=== PATIENT | female | born 1940 | race Caucasian/White ===

== ENCOUNTER → 2017-02-13 | Outpatient (CLI) | payer OTHER ==
[~2017-02-13] MED LIST: ALBUAER2 INH; BIOT300T2 PO; CLTP PO; CYAN250T PO; FSM70 PO; GARLTAB3 PO; MAGN400T5 PO; MULT-506 PO; NORT10CA2 PO; PRLSR20 PO; SYMIN160 INH; VITA400C15 PO; [UNRECOGNIZED DRUG - OTHER] PO
--- NOTE | 2017-02-13 14:17 | DIAGNOSTIC IMAGING REPORT ---
CHEST 2 VIEWS ROUTINE CLINICAL HISTORY: Lightheadedness. COMPARISON STUDY: 04/15/2015 FINDINGS: The heart is normal in size. There is a retrocardiac opacity consistent with a hiatal hernia. There is no focal pulmonary consolidation. There is no failure. There are no pleural effusions.[ IMPRESSION: Hiatal hernia. No active disease in the chest. Electronically signed by: Martinez August M.D. 02/13/2017 2:15 PM Dictated Date/Time: 02/13/2017 2:14 PM
[2017-02-13 14:41] LABS: BASO % 0.5 %; BASO ABS # 0.03 K/uL (0-0.2); COMPLETE YES; EOS % 2.2 %; HEMATOCRIT 44.4 % (37-47); IG% 0.2 %; LYMPH % 47.4 %; LYMPH ABS # 3.04 K/uL (1.2-3.4); MEAN CELL VOLUME 89.2 fL (80-100); MEAN CORPUSCULAR HEMOGLOBIN 29.5 pg (25-34); MEAN CORPUSCULAR HGB CONC 33.1 g/dl (32-36); MEAN PLATELET VOLUME 10.6 fL (7.4-10.4); NEUT % 42.7 %; PLATELET COUNT 203 K/uL (130-400); RED BLOOD COUNT 4.98 M/uL (4.2-5.4); WHITE BLOOD COUNT 6.42 K/uL (4.8-10.8)
[2017-02-13 14:51] LABS: ALT/SGPT 23 U/L (12-78); AST/SGOT 17 U/L (15-37); BLOOD UREA NITROGEN 14 mg/dl (7-18); BUN/CREATININE RATIO 18.5 (10-20); CALCIUM 8.7 mg/dl (8.5-10.1); CARBON DIOXIDE 33 mmol/L (21-32); CHLORIDE 102 mmol/L (98-107); CREATININE 0.78 mg/dl (0.60-1.20); GLUCOSE 82 mg/dl (70-99); MAGNESIUM 2.5 mg/dl (1.8-2.4); POTASSIUM 4.1 mmol/L (3.5-5.1); SODIUM 141 mmol/L (136-145)
[2017-02-13 15:02] LABS: ALB/GLOB RATIO 0.9 (0.9-2); ALKALINE PHOSPHATASE 80 U/L (45-117)
[2017-02-13 15:15] LABS: URINE APPEARANCE CLEAR (CLEAR); URINE BILIRUBIN NEG (NEG); URINE COLOR YELLOW; URINE NITRITE NEG (NEG); URINE SPECIFIC GRAVITY 1.007 (1.000-1.030); UROBILINOGEN NEG (NEG)
[2017-02-13 15:18] LABS: MANUAL MICROSCOPIC REQUIRED? NO; REVIEW REQ? NO
--- NOTE | 2017-02-20 10:32 | CODING QUERY MEDICAL NECESSITY ---
SUPPORTING DIAGNOSIS NEEDED A supporting diagnosis is required for the test/procedure performed on this patient in order for us to be reimbursed by the patient's insurance. Please provide a supporting diagnosis for the following test/procedure listed below next to the test name along with your signature. *If there is no additional diagnosis for this patient that would support the following test/procedure please document that below next to the test/procedure. Test(s)/Procedure(s) that require a supporting diagnosis: DOS 02/13 * Vitamin D DIAGNOSIS: * Vitamin B12 DIAGNOSIS: * TSH DIAGNOSIS: Provider Signature: Date: Thank you Melina Pearce Health Information Management Once completed, please kindly fax back to [phone] For questions please call [phone]
== END | disposition home or self-care (01) ==
LOC: C.LAB 13:23
PROVIDERS: ATTEND Internal Medicine Geriatric Medicine
DX: R42 Dizziness and giddiness (principal); M85.80 Other specified disorders of bone density and structure, unspecified site; E53.8 Deficiency of other specified B group vitamins; E78.5 Hyperlipidemia, unspecified

== ENCOUNTER → 2017-02-14 | Outpatient (CLI) | payer OTHER ==
--- NOTE | 2017-02-14 12:04 | DIAGNOSTIC IMAGING REPORT ---
CHEST CTA for PULMONARY ARTERIES CT DOSE: 475.02 mGy.cm HISTORY: Chest pain DIZZINESS, ELEVATED D DIMER, SOB, RECENT TRAVEL TECHNIQUE: Multiaxial CT images of the chest were performed following the intravenous administration of contrast to evaluate the pulmonary arteries. Maximal intensity projection images were also obtained. COMPARISON STUDY: None. FINDINGS: There is a normal caliber thoracic aorta with no evidence for dissection. There is no evidence for pulmonary embolus. No pleural effusions. No pneumothorax. The liver and spleen are unremarkable. No mediastinal or hilar lymphadenopathy. The central airways are patent. The lungs are clear. Fixed hiatal hernia IMPRESSION: No evidence for pulmonary embolus. The lungs are clear. Fixed hiatal hernia. Electronically signed by: Arturo Lynch M.D. 02/14/2017 12:03 PM Dictated Date/Time: 02/14/2017 12:01 PM
== END | disposition home or self-care (01) ==
LOC: C.CTS 11:30
PROVIDERS: ATTEND Internal Medicine Geriatric Medicine
DX: R42 Dizziness and giddiness (principal); R79.89 Other specified abnormal findings of blood chemistry

== ENCOUNTER → 2017-07-24 | Outpatient (CLI) | payer OTHER ==
[2017-07-24 09:54] LABS: BASO % 0.6 %; BASO ABS # 0.04 K/uL (0-0.2); COMPLETE YES; EOS % 6.3 %; IG% 0.3 %; LYMPH % 41.5 %; LYMPH ABS # 2.79 K/uL (1.2-3.4); MEAN CELL VOLUME 86.1 fL (80-100); MEAN CORPUSCULAR HEMOGLOBIN 28.1 pg (25-34); MEAN CORPUSCULAR HGB CONC 32.6 g/dl (32-36); MEAN PLATELET VOLUME 11.1 fL (7.4-10.4); MONO % 9.2 %; NEUT % 42.1 %; PLATELET COUNT 231 K/uL (130-400); RED BLOOD COUNT 4.88 M/uL (4.2-5.4); WHITE BLOOD COUNT 6.72 K/uL (4.8-10.8)
[2017-07-24 10:13] LABS: ALT/SGPT 18 U/L (12-78); AST/SGOT 14 U/L (15-37); BLOOD UREA NITROGEN 21 mg/dl (7-18); BUN/CREATININE RATIO 28.6 (10-20); CALCIUM 8.9 mg/dl (8.5-10.1); CARBON DIOXIDE 33 mmol/L (21-32); CHLORIDE 103 mmol/L (98-107); CREATININE 0.75 mg/dl (0.60-1.20); GLUCOSE 97 mg/dl (70-99); MAGNESIUM 2.4 mg/dl (1.8-2.4); POTASSIUM 4.2 mmol/L (3.5-5.1); SODIUM 140 mmol/L (136-145)
[2017-07-24 10:19] LABS: ALB/GLOB RATIO 0.9 (0.9-2); ALKALINE PHOSPHATASE 96 U/L (45-117); CHOLESTEROL 177 mg/dl (0-200); CHOLESTEROL/HDL RATIO 3.5; HDL CHOLESTEROL 51 mg/dl; LDL CHOLESTEROL CALCULATED 101 mg/dl; TRIGLYCERIDES 126 mg/dl (0-150); VERY LOW DENSITY LIPOPROT CALC 25 mg/dl
== END | disposition home or self-care (01) ==
LOC: C.LAB1850 08:07
PROVIDERS: ATTEND Physician Assistant Medical
DX: E53.8 Deficiency of other specified B group vitamins (principal); E78.5 Hyperlipidemia, unspecified; M85.80 Other specified disorders of bone density and structure, unspecified site; Z13.0 Encounter for screening for diseases of the blood and blood-forming organs and certain disorders involving the immune mechanism

== ENCOUNTER → 2017-08-21 | Outpatient (CLI) | payer OTHER | END | disposition home or self-care (01) | LOC: C.MAMM 14:50 | PROVIDERS: ATTEND Physician Assistant | DX: M85.80 Other specified disorders of bone density and structure, unspecified site (principal); M85.89 Other specified disorders of bone density and structure, multiple sites ==

== ENCOUNTER → 2017-11-02 | Outpatient (CLI) | payer OTHER ==
--- NOTE | 2017-11-02 18:06 | ECHOCARDIOGRAM REPORT ---
*NOTICE TO RECEIVING CONSTITUTION PARTY AGENCY This information is strictly Confidential and protected under [place] law. [place] law prohibits you from making any further disclosure of this information unless further disclosure is expressly permitted by the written consent of the person to whom it pertains or is authorized by law. A general authorization for the release of medical or other information is not sufficient for this purpose. Hospital accepts no responsibility if the information is made available to any other person, INCLUDING THE PATIENT. Interpretation Summary * Name: ABBI LICONA Study Date: 11/02/2017 01:04 PM BP: 136/80 mmHg * Patient Location: [facility] HR: 79 * : 1940 (M/d/yyyy) Gender: Female Height: 61 in * Age: 76 yrs Ethnicity: CA Weight: 180 lb * Ordering Physician: John Pena * Referring Physician: John Pena * Performed By: Noy Gilliland RCS * * Reason For Study: SOB * BSA: 1.8 m2 * -- Conclusions -- * 1. Normal LV size. Normal LV wall thickness. * 2. Normal LV systolic function. LVEF 55-60%. No regional wall motion abnormalities. * 3. Normal RV size and function. * 4. Mild aortic regurgitation. * 5. Borderline pulmonary hypertension. Estimated PASP 35-40. Normal CVP * 6. No prior studies for comparison. Procedure Details * A complete two-dimensional transthoracic echocardiogram was performed (2D, M-mode, Doppler and color flow Doppler). Left Ventricle * The left ventricle is grossly normal size. * There is normal left ventricular wall thickness. * Ejection Fraction = 55-60%. * No regional wall motion abnormalities noted. Right Ventricle * The right ventricle is grossly normal size. * The right ventricular systolic function is normal as assessed by tricuspid annular plane systolic excursion (TAPSE) (normal >1.5 cm). Atria * The left atrial size is normal. * Right atrial size is normal. * No ASD detected; PFO is not assessed. Mitral Valve * The mitral valve leaflets appear thickened, but open well. * There is no mitral valve stenosis. * There is trace mitral regurgitation. Tricuspid Valve * The tricuspid valve is not well visualized, but is grossly normal. * There is trace tricuspid regurgitation. * Right ventricular systolic pressure is elevated at 30-40mmHg. Aortic Valve * The aortic valve opens well. * The aortic valve is trileaflet. * No hemodynamically significant valvular aortic stenosis. * Mild aortic regurgitation. Pulmonic Valve * The pulmonary valve is inadequately visualized, but the Doppler data is adequate for interpretation. * Trace pulmonic valvular regurgitation. Great Vessels * The aortic root and proximal ascending aorta are normal sized. Pericardium/Pleural * There is no pericardial effusion. Great Vessels * Normal inferior vena cava size and collapsability with sniff indicates a normal right atrial pressure of 3 mmHg MMode 2D Measurements and Calculations IVSd 1.0 cm IVSs 1.3 cm LVIDd 4.0 cm LVIDs 2.2 cm LVPWd 0.96 cm LVPWs 1.3 cm IVS/LVPW 1.1 FS 43.3 % EDV(Teich) 68.1 ml ESV(Teich) 17.0 ml EF(Teich) 75.1 % EDV(cubed) 61.8 ml ESV(cubed) 11.3 ml EF(cubed) 81.8 % % IVS thick 25.6 % % LVPW thick 33.8 % LV mass(C)d 123.3 grams LV mass(C)dI 68.3 grams/m\S\2 LV mass(C)s 83.9 grams LV mass(C)sI 46.5 grams/m\S\2 SV(Teich) 51.1 ml SI(Teich) 28.3 ml/m\S\2 SV(cubed) 50.5 ml SI(cubed) 28.0 ml/m\S\2 Ao root diam 3.2 cm Ao root area 7.9 cm\S\2 ACS 1.8 cm LA dimension 3.5 cm asc Aorta Diam 3.0 cm LA/Ao 1.1 Doppler Measurements and Calculations MV E max harmony 52.5 cm/sec MV A max harmony 96.6 cm/sec MV E/A 0.54 MV P1/2t max harmony 50.0 cm/sec MV P1/2t 109.5 msec MVA(P1/2t) 2.0 cm\S\2 MV dec slope 133.8 cm/sec\S\2 MV dec time 0.33 sec Ao V2 max 119.1 cm/sec Ao max PG 5.7 mmHg Ao max PG (full) 2.6 mmHg AI max harmony 466.5 cm/sec AI max PG 87.1 mmHg AI dec slope 266.5 cm/sec\S\2 AI P1/2t 512.8 msec LV V1 max PG 3.1 mmHg LV V1 max 88.3 cm/sec PA V2 max 140.5 cm/sec PA max PG 7.9 mmHg PI max harmony 192.6 cm/sec PI max PG 14.8 mmHg PI dec slope 257.8 cm/sec\S\2 PI P1/2t 218.8 msec TR max harmony 274.9 cm/sec
== END | disposition home or self-care (01) ==
LOC: C.CPL 12:33
PROVIDERS: ATTEND Internal Medicine Critical Care Medicine
DX: R06.09 Other forms of dyspnea (principal)

== ENCOUNTER → 2017-11-08 | Outpatient (CLI) | payer OTHER ==
--- NOTE | 2017-11-08 14:26 | MAMMOGRAPHY REPORT ---
BILATERAL DIGITAL SCREENING MAMMOGRAM WITH CAD: 11/08/2017 CLINICAL HISTORY: Routine screening. Patient has no complaints. TECHNIQUE: Current study was also evaluated with a Computer Aided Detection (CAD) system. Bilateral CC and MLO views were obtained. COMPARISON: Comparison is made to exams dated: 11/07/2016 mammogram, 11/04/2015 mammogram, 11/02/2014 mammogram, 10/30/2013 mammogram, 09/16/2012 mammogram, and 08/02/2010 mammogram - [facility]. BREAST COMPOSITION: The tissue of both breasts is almost entirely fatty. FINDINGS: No suspicious masses, calcifications, or areas of architectural distortion are noted in ei ther breast. There has been no significant interval change compared to prior exams. Scattered bilater al benign-appearing calcifications are not significantly changed. There is a stable asymmetry in the right upper outer quadrant. IMPRESSION: ACR BI-RADS CATEGORY 2: BENIGN There is no mammographic evidence of malignancy. A 1 year screening mammogram is recommended. The pa tient will receive written notification of the results. Approximately 10% of breast cancers are not detected with mammography. A negative mammographic report should not delay biopsy if a clinically suggestive mass is present. Kaya Glover M.D. /:11/08/2017 12:01:19 Special Duty Nurse: Martha Dyer, [facility] letter sent: Normal 1/2 BI-RADS Code: ACR BI-RADS Category 2: Benign
== END | disposition home or self-care (01) ==
LOC: C.MAMM 10:00
PROVIDERS: ATTEND Physician Assistant Medical
DX: Z12.31 Encounter for screening mammogram for malignant neoplasm of breast (principal)

== ENCOUNTER → 2017-11-14 | Outpatient (CLI) | payer OTHER ==
--- NOTE | 2017-11-14 14:59 | DIAGNOSTIC IMAGING REPORT ---
CHEST 2 VIEWS ROUTINE HISTORY: J44.9 COPD, [id number] Dyspnea on exertion COMPARISON: Chest 02/13/2017. FINDINGS: Moderate hiatus hernia, unchanged. The lungs are clear. The heart is normal in size. No pleural effusions. No pneumothorax. IMPRESSION: No significant change compared to the prior study. No acute process. Moderate hiatus hernia. Electronically signed by: Buzz Eid M.D. 11/14/2017 2:57 PM Dictated Date/Time: 11/14/2017 2:52 PM
== END | disposition home or self-care (01) ==
LOC: C.RAD1850 14:44
PROVIDERS: ATTEND Internal Medicine Critical Care Medicine
DX: J44.9 Chronic obstructive pulmonary disease, unspecified (principal); R06.09 Other forms of dyspnea; K44.9 Diaphragmatic hernia without obstruction or gangrene

== ENCOUNTER 2018-02-25 16:20 | Emergency (ER) | payer OTHER ==
[~2018-02-25] VITALS: Ht 160 cm; Wt 88.1 kg
[2018-02-25 16:25] VITALS: TEMP 36.8; Ht 160 cm; Wt 88.1 kg
[2018-02-25] MEDS ORDERED: SODIUM CHLORIDE 0.9% 1000ML 1,000 ML IV STA ×2 (16:29→17:23)
[2018-02-25 17:00] VITALS: O2SAT 94
--- NOTE | 2018-02-25 17:05 | DIAGNOSTIC IMAGING REPORT ---
CHEST ONE VIEW PORTABLE CLINICAL HISTORY: EVALUATE GI BLEED COMPARISON STUDY: Chest radiograph November 14, [address] February 14, 2017. FINDINGS: Lung volumes are normal. No pneumothorax or pleural effusion is noted. There is no evidence for pulmonary edema. A large hiatal hernia is again noted. Cardiomediastinal silhouette is stable. IMPRESSION: No acute cardiopulmonary findings. Electronically signed by: Yared Moe M.D. 02/25/2018 5:03 PM Dictated Date/Time: 02/25/2018 5:01 PM
[2018-02-25 17:12] LABS: EOS ABS # 0.09 K/uL (0-0.5); HEMATOCRIT 44.7 % (37-47); HEMOGLOBIN 14.7 g/dL (12.0-16.0); IG# 0.02 K/uL (0.00-0.02); LYMPH % 9.1 %; LYMPH ABS # 0.81 K/uL (1.2-3.4); MEAN CELL VOLUME 83.4 fL (80-100); MEAN CORPUSCULAR HEMOGLOBIN 27.4 pg (25-34); MEAN CORPUSCULAR HGB CONC 32.9 g/dl (32-36); MEAN PLATELET VOLUME 10.4 fL (7.4-10.4); MONO % 7.6 %; MONO ABS # 0.68 K/uL (0.11-0.59); NEUT % 82.1 %; NEUT ABS # 7.32 K/uL (1.4-6.5); PLATELET COUNT 179 K/uL (130-400); RED CELL DISTRIBUTION WIDTH CV 16.1 % (11.5-14.5); RED CELL DISTRIBUTION WIDTH SD 48.7 fL (36.4-46.3); WHITE BLOOD COUNT 8.92 K/uL (4.8-10.8)
[2018-02-25 17:39] LABS: ALBUMIN 3.4 gm/dl (3.4-5.0); CALCIUM 8.2 mg/dl (8.5-10.1); CREATININE 1.04 mg/dl (0.60-1.20); POTASSIUM 3.9 mmol/L (3.5-5.1)
[2018-02-25 17:42] LABS: TOTAL PROTEIN 7.3 gm/dl (6.4-8.2)
[2018-02-25] MEDS ORDERED: CHOL2000 PO (17:59)
[2018-02-25] MEDS ORDERED: NRN300 PO (17:59)
[2018-02-25] MEDS ORDERED: CODCAP4 PO (17:59)
[2018-02-25] MEDS ORDERED: GARL10007 PO (17:59)
[2018-02-25] MEDS ORDERED: CALC-393 PO (17:59)
[2018-02-25] MEDS ORDERED: MULT-845 PO (17:59)
[2018-02-25] MEDS ORDERED: VITACAP36 PO (17:59)
[2018-02-25] MEDS ORDERED: ASPI-232 PO (17:59)
[2018-02-25] MEDS ORDERED: FLUT1INH INH (17:59)
[2018-02-25] MEDS ORDERED: ALBINS/ INH (17:59)
[2018-02-25] MEDS ORDERED: OMEP20CA9 PO (17:59)
[2018-02-25] MEDS ORDERED: CYAN10004 PO (17:59)
[2018-02-25] MEDS ORDERED: RANI150T3 PO (17:59)
--- NOTE | 2018-02-25 18:59 | EMERGENCY ROOM VISIT NOTE ---
History Report prepared by Yesenia: Gema Banerjee Under the Supervision of: Dr. Murphy Park M.D. First contact with patient: 16:28 Chief Complaint: DIARRHEA Stated Complaint: DIARRHEA History of Present Illness The patient is a 77 year old white female with a past medical history of COPD, asthma, neuropathy, cholecystectomy, hernia who presents to the ED with a cc of persistent diarrhea beginning 0400 this morning. Last bowel movement was at 1630. She does not identify anything that improves or worsens her pain. Positive watery black stool. Negative abdominal pain, bright red blood, lightheaded, bruising. She is on baby aspirin. She denies any smoking or alcohol use. No recent travel, antibiotic use, or stream/well water. No history of diverticulitis. Source of History: patient Onset: 0400 this morning Position: other (stool) Quality: other (black watery diarrhea) Timing: other (persistent) Associated Symptoms: No abdominal pain, No hematochezia Note: Pt denies lightheadedness, bruising. Review of Systems See HPI for pertinent positives and negatives. A total of ten systems were reviewed and were otherwise negative. Past Medical & Surgical Medical Problems: (1) Lower extremity neuropathy (2) Mild persistent asthma Family History Cancer Social History Smoking Status: Never Smoker Alcohol Use: none Drug Use: none Marital Status: single Housing Status: lives with family Occupation Status: retired Current/Historical Medications Scheduled Albuterol Sulf (Proventil 0.083% 2.5MG/3ML), 2.5 MG INH DAILY Aspirin (Aspir-81), 1 TAB PO DAILY Biotin (Biotin), 1 TABLET PO DAILY Calcium Carbonate (Calcium), 600 MG PO DAILY Cholecalciferol (Vitamin D3), 1 CAP PO DAILY Cod Liver Oil (Cod Liver Oil), 1 CAP PO DAILY Cyanocobalamin (Vitamin B-12 1000 Mcg), 1,000 MCG PO DAILY Fluticasone Furoate-Vilanterol (Breo Ellipta), 1 PUFF INH DAILY Gabapentin (Gabapentin), 300 MG PO PM Garlic (Garlic), 1 TAB PO DAILY Magnesium Oxide (Mag-Ox), 400 MG PO DAILY Multiple Vitamins W/ Minerals (Centrum Silver Adult 50+), 1 TAB PO DAILY Omeprazole (Prilosec), 40 MG PO DAILY Ranitidine Hcl (Zantac), 150 MG PO HS Vitamin E (E-200), 1 CAP PO DAILY Allergies Coded Allergies: No Known Allergies (Verified , 02/25/18) Uncoded Allergies: NKA (Allergy, Unknown, 04/15/15) No Known Allergies Physical Exam Vital Signs Date Time Temp Pulse Resp B/P (MAP) Pulse Ox O2 Delivery O2 Flow Rate FiO2 02/25/18 20:35 86 16 125/73 94 02/25/18 20:28 94 02/25/18 19:47 96 20 133/90 Room Air 02/25/18 18:19 102 16 164/99 100 Room Air 02/25/18 17:00 94 Room Air 02/25/18 16:25 36.8 121 20 139/87 94 Room Air Physical Exam GENERAL: Awake, alert, well-appearing, NAD, wearing glasses HENT: Normocephalic, atraumatic. EYES: Normal conjunctiva. Sclera non-icteric. NECK: Supple. No nuchal rigidity. FROM. RESPIRATORY: CTAB, no rhonchi, wheezing, crackles CARDIAC: Tachycardic and regular, no MRG ABDOMEN: Soft, NTND, BS+, reducible midline hernia, nontender when reduced, incision scar over right abdomen. RECTAL: No hemorrhoid or fissure noted. No masses. Dark stool, heme negative. MSK: No chest wall TTP, no LE edema NEURO: GCS 15, CN 2-12 intact, moves all 4s on command SKIN: No rash or jaundice noted. Medical Decision & Procedures ER Provider Diagnostic Interpretation: Radiology results as stated below per my review and radiologist interpretation: CHEST ONE VIEW PORTABLE CLINICAL HISTORY: EVALUATE GI BLEED COMPARISON STUDY: Chest radiograph November 14, [address] February 14, 2017. FINDINGS: Lung volumes are normal. No pneumothorax or pleural effusion is noted. There is no evidence for pulmonary edema. A large hiatal hernia is again noted. Cardiomediastinal silhouette is stable. IMPRESSION: No acute cardiopulmonary findings. Electronically signed by: Yared Moe M.D. 02/25/2018 5:03 PM Dictated Date/Time: 02/25/2018 5:01 PM Laboratory Results 02/25/18 16:47 Red Blood Count 5.36, Mean Corpuscular Volume 83.4, Mean Corpuscular Hemoglobin 27.4, Mean Corpuscular Hemoglobin Concent 32.9, Mean Platelet Volume 10.4, Neutrophils (%) (Auto) 82.1, Lymphocytes (%) (Auto) 9.1, Monocytes (%) (Auto) 7.6, Eosinophils (%) (Auto) 1.0, Basophils (%) (Auto) 0.0, Neutrophils # (Auto) 7.32, Lymphocytes # (Auto) 0.81, Monocytes # (Auto) 0.68, Eosinophils # (Auto) 0.09, Basophils # (Auto) 0.00 02/25/18 16:47 Test 02/25/18 16:47 02/25/18 19:40 White Blood Count 8.92 K/uL (4.8-10.8) Red Blood Count 5.36 M/uL (4.2-5.4) Hemoglobin 14.7 g/dL (12.0-16.0) Hematocrit 44.7 % (37-47) Mean Corpuscular Volume 83.4 fL (80-100) Mean Corpuscular Hemoglobin 27.4 pg (25-34) Mean Corpuscular Hemoglobin Concent 32.9 g/dl (32-36) Platelet Count 179 K/uL (130-400) Mean Platelet Volume 10.4 fL (7.4-10.4) Neutrophils (%) (Auto) 82.1 % Lymphocytes (%) (Auto) 9.1 % Monocytes (%) (Auto) 7.6 % Eosinophils (%) (Auto) 1.0 % Basophils (%) (Auto) 0.0 % Neutrophils # (Auto) 7.32 K/uL (1.4-6.5) Lymphocytes # (Auto) 0.81 K/uL (1.2-3.4) Monocytes # (Auto) 0.68 K/uL (0.11-0.59) Eosinophils # (Auto) 0.09 K/uL (0-0.5) Basophils # (Auto) 0.00 K/uL (0-0.2) RDW Standard Deviation 48.7 fL (36.4-46.3) RDW Coefficient of Variation 16.1 % (11.5-14.5) Immature Granulocyte % (Auto) 0.2 % Immature Granulocyte # (Auto) 0.02 K/uL (0.00-0.02) Prothrombin Time 10.2 SECONDS (9.0-12.0) Prothromb Time International Ratio 1.0 (0.9-1.1) Activated Partial Thromboplast Time 24.0 SECONDS (21.0-31.0) Partial Thromboplastin Ratio 0.9 Anion Gap 10.0 mmol/L (3-11) Est Creatinine Clear Calc Drug Dose 46.9 ml/min Estimated GFR () 59.6 Estimated GFR (Non- 51.4 BUN/Creatinine Ratio 21.3 (10-20) Calcium Level 8.2 mg/dl (8.5-10.1) Total Bilirubin 0.7 mg/dl (0.2-1) Direct Bilirubin 0.1 mg/dl (0-0.2) Aspartate Amino Transf (AST/SGOT) 28 U/L (15-37) Alanine Aminotransferase (ALT/SGPT) 28 U/L (12-78) Alkaline Phosphatase 81 U/L (45-117) Total Protein 7.3 gm/dl (6.4-8.2) Albumin 3.4 gm/dl (3.4-5.0) Lipase 915 U/L (73-393) Urine Color YELLOW Urine Appearance CLEAR (CLEAR) Urine pH 5.0 (4.5-7.5) Urine Specific [place] 1.021 (1.000-1.030) Urine Protein NEG (NEG) Urine Glucose (UA) NEG (NEG) Urine Ketones NEG (NEG) Urine Occult Blood NEG (NEG) Urine Nitrite NEG (NEG) Urine Bilirubin NEG (NEG) Urine Urobilinogen NEG (NEG) Urine Leukocyte Esterase NEG (NEG) Laboratory results reviewed by me Medications Administered Medications (Trade) Dose Ordered Sig/Billie Route Start Time Stop Time Status Last Admin Dose Admin Sodium Chloride 1,000 ml @ 999 mls/hr Q1H1M STAT IV 02/25/18 16:29 02/25/18 17:29 DC 02/25/18 17:00 999 MLS/HR Sodium Chloride 1,000 ml @ 999 mls/hr Q1H1M STAT IV 02/25/18 17:23 02/25/18 18:23 DC 02/25/18 17:37 999 MLS/HR ECG Per My Interpretation Indication: tachycardia Rate (beats per minute): 114 Rhythm: sinus tachycardia Findings: T-wave inversion (Inferior, questionable), other (short MA, normal axis) ED Course 1636: The patient was evaluated in room B7. A complete history and physical exam was performed. 1849: I reevaluated the patient. She is feeling better. 1943: I reevaluated the patient. Discussed results and discharge instructions: She verbalized understanding and agreement. 2027: The patient has finished her fluids and is feeling better. She was discharged home. Medical Decision Nursing notes reviewed. Ancillary studies and prior records reviewed. The patient is a 77 year old white female with a past medical history of COPD, asthma, neuropathy, cholecystectomy, hernia who presents to the ED with a cc of persistent diarrhea beginning 0400 this morning. Etiologies such as diverticulosis, AVM, coagulopathy, colitis, inflammatory bowel disease, malignancy,Susu-Wilson tear, esophagitis, peptic ulcer disease , variceal bleed, gastritis, epistaxis, fissure, hemorrhoids, as well as others were entertained. Patient was seen and evaluated at the bedside. Patient was complaining of some diarrhea and noticed that her stools were initially N color no turned darker. Patient does take a baby aspirin but no other blood thinning medications. Patient did have a rectal exam performed which showed no fissures or hemorrhoids. Patient did have dark stool but it was heme-negative. Patient did have blood work completed and was given IV fluids along with a type and screen and coags. Patient's blood counts are normal. Patient has a normal H&H, normal platelet count, normal coagulation studies. Patient does have a mild elevation in lipase which is 3 times the normal limit. Patient does not complain of any epigastric discomfort, nausea and the patient has not been vomiting. Patient was able to tolerate some p.o. modesta sari at the bedside. Patient's tachycardia did improve with fluids. Upon reassessment she only got about 1/2 L of the initial 2 L ordered. Patient was told to keep her arm straight to continue her p.o. hydration. Upon reassessment the patient's tachycardia improved. Patient was told that she needs to continue p.o. hydration at home. Patient was given strict follow-up, discharge, and return precautions. All questions were answered. Patient was deemed suitable for outpatient follow-up at this time. Patient agreed with the plan of care and was safely discharged home. Medication Reconcilliation Current Medication List: was personally reviewed by me Blood Pressure Screening Patient's blood pressure: Elevated blood pressure Blood pressure disposition: Elevated BP felt to be situational Impression Primary Impression: Diarrhea Scribe Attestation The scribe's documentation has been prepared under my direction and personally reviewed by me in its entirety. I confirm that the note above accurately reflects all work, treatment, procedures, and medical decision making performed by me. Departure Information Dispostion Home / Self-Care Referrals RV. Mccurdy MD (PCP) Patient Instructions Diarrhea, My [facility] Additional Instructions Please return to the emergency department if you have worsening or recurrent symptoms not amenable to at-home treatment. Please call for a follow-up appointment with her primary care physician. Please take your medications as prescribed. If you have other concerns and/or complaints please feel free to also call your primary care physician's office or return the ED for further evaluation, management, and treatment. You may take 600 mg Ibuprofen every 6 hours as needed for pain with food for no more than 2 consecutive days. You may take tylenol 1000 mg every 6 hours as needed for pain. You may take motrin and tylenol separately or at the same time. Take your medications as prescribed. Please make sure you hydrate liberally with clear liquids. You have been examined and treated today on an emergency basis only. This is not a substitute for, or an effort to provide, complete comprehensive medical care. It is impossible to recognize and treat all injuries or illnesses in a single emergency department visit. It is therefore important that you follow up closely with [facility], your PCP, and/or your specialist(s). Call as soon as possible for an appointment. Thank you for your time and consideration. I look forward to speaking with you again soon. Please don't hesitate to call us if you have any questions. Problem Qualifiers Primary Impression: Diarrhea Diarrhea type: unspecified type Qualified Codes: R19.7 - Diarrhea, unspecified
[2018-02-25 20:35] VITALS: BP 125/73; PULSE 86; O2SAT 94
== END 2018-02-25 20:30 | disposition home or self-care (01) ==
LOC: C.EDB 16:21
DX: R19.7 Diarrhea, unspecified (principal); R00.0 Tachycardia, unspecified; R03.0 Elevated blood-pressure reading, without diagnosis of hypertension; R74.8 Abnormal levels of other serum enzymes; J44.9 Chronic obstructive pulmonary disease, unspecified; Z90.49 Acquired absence of other specified parts of digestive tract; Z79.51 Long term (current) use of inhaled steroids; Z79.82 Long term (current) use of aspirin

== ENCOUNTER → 2018-02-28 | Outpatient (CLI) | payer OTHER ==
[~2018-02-28] MED LIST changes: +ALBINS/ INH; -ALBUAER2 INH; +ASPI-232 PO; +CALC-393 PO; +CHOL2000 PO; -CLTP PO; +CODCAP4 PO; +CYAN10004 PO; -CYAN250T PO; +FLUT1INH INH; -FSM70 PO; +GARL10007 PO; -GARLTAB3 PO; -MULT-506 PO; +MULT-845 PO; -NORT10CA2 PO; +NRN300 PO; +OMEP20CA9 PO; -PRLSR20 PO; +RANI150T3 PO; -SYMIN160 INH; -VITA400C15 PO; +VITACAP36 PO; -[UNRECOGNIZED DRUG - OTHER] PO
== END | disposition home or self-care (01) ==
LOC: C.LAB1850 15:13
PROVIDERS: ATTEND Internal Medicine
DX: R19.7 Diarrhea, unspecified (principal)

== ENCOUNTER 2019-05-29 20:29 | Inpatient (IN) ==
[2019-05-29] MEDS ORDERED: SODIUM CHLORIDE 0.9% 250 ML IV PRN ×2 (20:39→22:41)
[2019-05-29] MEDS ORDERED: SODIUM CHLORIDE 0.9% 500 ML IV SCH (20:45)
[2019-05-29] MEDS ORDERED: ALBUT/IPRATROP 3MG/0.5MG NEB 3 ML VIAL NEB STA (20:47)
[2019-05-29] MEDS ORDERED: FAMOTIDINE 20MG/5ML IV PUSH IV STA (20:48)
--- NOTE | 2019-05-29 21:12 | Emergency Department Note ---
Entered by Rios Stephen acting as a scribe for Isra Asencio MD History of Present Illness General Chief complaint: Referred by Doctor Stated complaint: LOW BLOOD WORK - SOB Time Seen by Provider: 05/29/19 20:36 Source: patient History of Present Illness Onset (ago): day(s) (labs obtained yesterday) Location: chest (lungs) Pain Consistency: + other (persistent) Quality: + other (shortness of breath, low hemoglobin) Associated symptoms: + chest pain The patient is a 78 year old female with COPD who presents to the Emergency Room after referral for low hemoglobin of 7.6 measured yesterday. 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 Today she was called an hour prior to arr ival and was instructed to report to the ER. The patient has not noticed blood in her urine or stool, and she denies a history of GI bleeding. The patient yesterday was also started on prednisone and doxycycline. She reports that she takes baby aspirin daily but no other blood thinners. She states that she has had burning chest pain throughout today, which she states feels like reflux. She reports that she started using supplemental oxygen last year at night, but recently her shortness of breath has been worsening and she has been using it during the day as needed. She states that she uses nebulizers 3x daily. She denies history of smoking. The patient denies a history of heart attack. Home Medications Home Medications Medication Instructions Recorded Confirmed Type albuterol sulfate 2.5 mg INHALATION QID 08/06/18 05/29/19 History aspirin 81 mg PO QPM 08/06/18 05/29/19 History biotin 1 mg PO DAILY 08/06/18 05/29/19 History calcium carbonate [Calcium 600] 600 mg PO DAILY 08/06/18 05/29/19 History cholecalciferol (vitamin D3) 2,000 unit PO DAILY 08/06/18 05/29/19 History [Vitamin D3] cod liver oil 1 cap PO DAILY 08/06/18 05/29/19 History gabapentin [Neurontin] 300 mg PO QPM 08/06/18 05/29/19 History garlic 400 mg PO DAILY 08/06/18 05/29/19 History magnesium oxide [MagOx] 400 mg PO DAILY 08/06/18 05/29/19 History ranitidine HCl [Zantac] 150 mg PO HS 08/06/18 05/29/19 History vitamin E 400 unit PO DAILY 08/06/18 05/29/19 History Trelegy Ellipta 1 inh INHALATION HS 02/17/19 05/29/19 History cyanocobalamin (vitamin B-12) 1,000 mcg PO DAILY 02/17/19 05/29/19 History [Vitamin B-12] multivitamin [Multiple Vitamins] 1 tab PO DAILY 02/17/19 05/29/19 History pantoprazole 40 mg PO QAM 02/17/19 05/29/19 History albuterol sulfate [Ventolin HFA] 2 puff INHALATION Q4 PRN 02/25/19 05/29/19 History tramadol 50 mg PO Q6H PRN #30 tab 02/25/19 05/29/19 Rx doxycycline hyclate 100 mg PO BID 05/29/19 05/29/19 History prednisone 10 mg PO .TAPER UD 05/29/19 05/29/19 History Allergies Allergy/AdvReac Type Severity Reaction Status Date / Time No Known Allergies Allergy Verified 05/29/19 22:15 Past Med/Surg History Medical History Mild persistent asthma (Chronic 05/11/11) Acid reflux COPD (chronic obstructive pulmonary disease) Hernia CURRENT "ABOVE BELLY BUTTON" Neuropathy Surgical History History of carpal tunnel surgery of left wrist History of cholecystectomy History of colonoscopy History of hernia surgery MULTIPLE Family History Daughter Family history of ovarian cancer Social History Preferred Language: Macedonian Communication Ability: Effective Beliefs That Will Affect Care: None Current Living Situation: Other Current Living Situation Comment: SON LIVES WITH PT Feels Safe at Home: Yes Smoking Status: Never smoker Hx Alcohol Use: No Hx Substance Use: No Review of Systems See HPI for pertinent positives & negatives. and A total of 10 systems reviewed and were otherwise negative Physical Exam Vital Signs Vital Signs - 24 hr 05/29/19 20:30 05/29/19 20:52 05/29/19 20:57 Temperature 36.5 C Temperature Source Oral Sepsis Recent Fever Within 48 Hours No Sepsis New/Unexplained Change in Mental Status No Sepsis Action Taken by Nursing No Action Required Pulse Rate 125 H 113 H 118 H Pulse Rate [Right Radial] Pulse Rate from SpO2 Sensor 113 H 121 H Pulse Rhythm Respiratory Rate 24 29 H 26 H Respiratory Effort / Characteristics Blood Pressure 162/108 H 162/91 H Blood Pressure Mean 126 114 Pulse Oximetry 97 99 99 Oxygen Delivery Method Nasal Cannula Oxygen Flow Rate 2 05/29/19 21:00 05/29/19 21:01 05/29/19 21:19 Temperature Temperature Source Sepsis Recent Fever Within 48 Hours Sepsis New/Unexplained Change in Mental Status Sepsis Action Taken by Nursing Pulse Rate 119 H 117 H Pulse Rate [Right Radial] 118 H Pulse Rate from SpO2 Sensor 122 H Pulse Rhythm Regular Respiratory Rate 24 20 22 Respiratory Effort / Characteristics Non-Labored Spontaneous Blood Pressure Blood Pressure Mean Pulse Oximetry 99 98 98 Oxygen Delivery Method Nasal Cannula Nasal Cannula Oxygen Flow Rate 3 3 05/29/19 21:28 05/29/19 21:30 05/29/19 21:31 Temperature Temperature Source Sepsis Recent Fever Within 48 Hours Sepsis New/Unexplained Change in Mental Status Sepsis Action Taken by Nursing Pulse Rate 114 H 115 H 116 H Pulse Rate [Right Radial] Pulse Rate from SpO2 Sensor 115 H 114 H 112 H Pulse Rhythm Respiratory Rate 39 H 24 21 Respiratory Effort / Characteristics Blood Pressure 166/103 H 154/95 H Blood Pressure Mean 124 114 Pulse Oximetry 98 99 98 Oxygen Delivery Method Oxygen Flow Rate 05/29/19 22:00 05/29/19 22:01 05/29/19 22:30 Temperature Temperature Source Sepsis Recent Fever Within 48 Hours Sepsis New/Unexplained Change in Mental Status Sepsis Action Taken by Nursing Pulse Rate 108 H 108 H 108 H Pulse Rate [Right Radial] Pulse Rate from SpO2 Sensor 104 H 109 H 106 H Pulse Rhythm Respiratory Rate 23 26 H 30 H Respiratory Effort / Characteristics Blood Pressure 126/107 H Blood Pressure Mean 113 Pulse Oximetry 100 100 99 Oxygen Delivery Method Oxygen Flow Rate 05/29/19 22:31 Temperature Temperature Source Sepsis Recent Fever Within 48 Hours Sepsis New/Unexplained Change in Mental Status Sepsis Action Taken by Nursing Pulse Rate 110 H Pulse Rate [Right Radial] Pulse Rate from SpO2 Sensor 106 H Pulse Rhythm Respiratory Rate 22 Respiratory Effort / Characteristics Blood Pressure 156/82 H Blood Pressure Mean 106 Pulse Oximetry 98 Oxygen Delivery Method Oxygen Flow Rate GENERAL: Patient is in mild distress from dyspnea. HEENT: No acute trauma, normocephalic atraumatic, mucous membranes moist, no nasal congestion, no scleral icterus. NECK: No stridor, no adenopathy, no meningismus, trachea is midline. LUNGS: Increased respiratory rate. Decreased breath sounds but no wheezing. Patient is short of breath when speaking. HEART: Tachycardia with regular rhythm, no murmurs. ABDOMEN: Soft, nontender, bowel sounds positive, no hernias, no peritonitis. RECTAL: Brown stool, heme positive. EXTREMITIES: No cyanosis or edema, full range of motion of all the joints without pain or difficulty, no signs for acute trauma. NEUROLOGIC: Oriented x 3, no acute motor or sensory deficits, no focal weakness. SKIN: No rash, no jaundice, no diaphoresis. Course 2037: The patient was evaluated in room A9B. A complete history and physical examination were performed. Rectal exam was performed with female nurse kev marc at bedside. 2214: The patient requested medication for heart burn, which was then ordered. 2243: I consulted Dr. Penn [facility] Hospitalist. The patient will be reevaluated for hospitalization. 2250: I updated the patient on results. She provided consent for transfusion. Administered Medications Discontinued Medications Al Hydrox/Mg Hydrox/Simethicone () 1 dose PO ONE ONE Stop: 05/29/19 22:13 Last Admin: 05/29/19 22:16 Dose: 1 dose Documented by: [id number] Albuterol (Duoneb) 3 ml NEB NOW STA Stop: 05/29/19 20:48 Last Admin: 05/29/19 20:59 Dose: 3 ml Documented by: [id number] Famotidine (Pepcid 20mg Iv Push) 20 mg IV ONE STA Stop: 05/29/19 20:49 Last Admin: 05/29/19 21:28 Dose: 20 mg Documented by: [id number] Sodium Chloride (Nss) 500 mls @ 999 mls/hr IV .Q31M MASOUD Stop: 05/29/19 21:15 Last Infusion: 05/29/19 22:05 Dose: 0 mls/hr Documented by: [id number] Admin: 05/29/19 21:28 Dose: 999 mls/hr Documented by: [id number] Medical Decision Making Differential Diagnosis Differential diagnosis: anemia, GI bleed, electrolyte imbalance, dehydration, pneumonia, CHF, COPD exacerbation, ulcer, coagulopathy Medical Records Attestation: I reviewed the patient's medical records. Home Medications Current Medication List: was personally reviewed by me Laboratory Data Attestation: I reviewed the patient's lab results. Result diagrams: 05/29/19 21:14 05/29/19 21:14 Lab Results 05/29/19 05/29/19 05/29/19 Range/Units 20:59 21:14 21:14 WBC 14.10 H (4.8-10.8) K/uL RBC 3.97 L (4.2-5.4) M/uL Hgb 7.6 L (12.0-16.0) g/dL Hct 28.1 L (37-47) % MCV 70.8 L (80-100) fL MCH 19.1 L (25-34) pg MCHC 27.0 L (32-36) g/dL RDW Std Deviation 49.4 H (36.4-46.3) fL RDW Coeff of Michael 19.1 H (11.5-14.5) % Plt Count 276 (130-400) K/uL MPV 10.1 (7.4-10.4) fL Immature Gran % (Auto) 0.4 % Neut % (Auto) 69.7 % Lymph % (Auto) 21.0 % Josephine % (Auto) 8.8 % Eos % (Auto) 0.0 % Baso % (Auto) 0.1 % Immature Gran # (Auto) 0.06 H (0.00-0.02) K/uL Neut # (Auto) 9.83 H (1.4-6.5) K/uL Lymph # (Auto) 2.96 (1.2-3.4) K/uL Josephine # (Auto) 1.24 H (0.11-0.59) K/uL Eos # (Auto) 0.00 (0-0.5) K/uL Baso # (Auto) 0.01 (0-0.2) K/uL Absolute Nucleated RBC 0.06 H (0-0) K/uL Nucleated RBC % (auto) 0.4 % Hypochromasia Present Ovalocytes 1+ PT 9.8 (9.0-12.0) Seconds INR 1.0 (0.9-1.1) APTT < 20.0 L (21.0-31.0) Seconds PTT Ratio 0.7 Sodium (136-145) mmol/L Potassium (3.5-5.1) mmol/L Chloride (98-107) mmol/L Carbon Dioxide (21-32) mmol/L Anion Gap (3-11) BUN (7-18) mg/dl Creatinine (0.6-1.2) mg/dl Est Cr Clr Drug Dosing ml/min Est GFR ( Amer) Est GFR (Non-Af Amer) BUN/Creatinine Ratio (10-20) Glucose (70-99) mg/dl Calcium (8.5-10.1) mg/dl Magnesium (1.8-2.4) mg/dl Total Bilirubin (0.2-1) mg/dl AST (15-37) U/L ALT (12-78) U/L Alkaline Phosphatase (45-117) U/L Troponin I (0-0.045) ng/ml Total Protein (6.4-8.2) gm/dl Albumin (3.4-5.0) gm/dl Globulin (2.5-4.0) gm/dl Albumin/Globulin Ratio (0.9-2) TSH (0.300-4.500) uIu/ml Blood Type O Positive Antibody Screen NEGATIVE Crossmatch See Detail 05/29/19 Range/Units 21:14 WBC (4.8-10.8) K/uL RBC (4.2-5.4) M/uL Hgb (12.0-16.0) g/dL Hct (37-47) % MCV (80-100) fL MCH (25-34) pg MCHC (32-36) g/dL RDW Std Deviation (36.4-46.3) fL RDW Coeff of Michael (11.5-14.5) % Plt Count (130-400) K/uL MPV (7.4-10.4) fL Immature Gran % (Auto) % Neut % (Auto) % Lymph % (Auto) % Josephine % (Auto) % Eos % (Auto) % Baso % (Auto) % Immature Gran # (Auto) (0.00-0.02) K/uL Neut # (Auto) (1.4-6.5) K/uL Lymph # (Auto) (1.2-3.4) K/uL Josephine # (Auto) (0.11-0.59) K/uL Eos # (Auto) (0-0.5) K/uL Baso # (Auto) (0-0.2) K/uL Absolute Nucleated RBC (0-0) K/uL Nucleated RBC % (auto) % Hypochromasia Ovalocytes PT (9.0-12.0) Seconds INR (0.9-1.1) APTT (21.0-31.0) Seconds PTT Ratio Sodium 140 (136-145) mmol/L Potassium 3.7 (3.5-5.1) mmol/L Chloride 104 (98-107) mmol/L Carbon Dioxide 26 (21-32) mmol/L Anion Gap 11.0 (3-11) BUN 22 H (7-18) mg/dl Creatinine 0.99 (0.6-1.2) mg/dl Est Cr Clr Drug Dosing 51.3 ml/min Est GFR ( Amer) 62.8 Est GFR (Non-Af Amer) 54.2 BUN/Creatinine Ratio 21.9 H (10-20) Glucose 128 H (70-99) mg/dl Calcium 8.9 (8.5-10.1) mg/dl Magnesium 2.4 (1.8-2.4) mg/dl Total Bilirubin 0.3 (0.2-1) mg/dl AST 14 L (15-37) U/L ALT 19 (12-78) U/L Alkaline Phosphatase 104 (45-117) U/L Troponin I < 0.015 (0-0.045) ng/ml Total Protein 7.0 (6.4-8.2) gm/dl Albumin 3.4 (3.4-5.0) gm/dl Globulin 3.6 (2.5-4.0) gm/dl Albumin/Globulin Ratio 1.0 (0.9-2) TSH 3.400 (0.300-4.500) uIu/ml Blood Type Antibody Screen Crossmatch Imaging Data Radiologist's Impression: Radiology results as stated below per my review and the radiologist's in terpretation: XR chest 1V portable HISTORY: 78 years-old Female weakness acute weakness with shortness of breath COMPARISON: Chest radiograph 05/28/2019 TECHNIQUE: Portable AP view of the chest FINDINGS: Cardiac silhouette is enlarged, unchanged. Large hiatal hernia redemonstrated. There is no pneumothorax, pleural effusion, focal airspace consolidation or overt pulmonary edema. Degenerative changes of the shoulders and spine. IMPRESSION: 1. Cardiomegaly without overt pulmonary edema. 2. Large hiatal hernia. The above report was generated using voice recognition software. It may contain grammatical, syntax or spelling errors. Electronically signed by: Sohail Betancourt M.D. 05/29/2019 9:12 PM ECG Data Attestation: I personally reviewed and interpreted this ECG as follows: Indication: SOB/dyspnea Rate (beats per minute): 110 Rhythm: sinus tachycardia Findings: + PAC and + PVC; no ST elevation Blood Pressure Blood Pressure Findings: Elevated blood pressure Blood Pressure Disposition: further management by hospitalist ELIANA Narrative There is a mild leukocytosis at 14,000, this could be consistent with infection or her recent prednisone use. Hemoglobin is quite low at 7.6. A rectal exam was performed, the stool was brown in color but heme positive. There is no coagulopathy. No significant electrolyte abnormality or kidney failure. No elevation to the liver enzymes. The patient is in a euthyroid state. Blood type was O+. Chest film showed a hiatal hernia, no CHF or pneumonia. EKG showed a sinus tachycardia, no acute ischemia. Cardiac enzyme testing x1 is not consistent with acute cardiac injury. The patient received a GI cocktail for her heartburn. She was given IV Pepcid. She was given a DuoNeb, IV saline. She was ordered for 1 unit of blood to be transfused. This blood was started in the ER, consent for blood was signed by the patient and witnessed. The patient presents with increasing dyspnea. She is tachycardic. She was quite short of breath with any movement or activity. I do think she will benefit from a blood transfusion. I am concerned about an ulcer or gastritis, especially given her heartburn complaints. I spoke to the patient and case management. The on-call hospitalist was consulted. Patient is currently resting comfortably. Impression & Plan Shortness of breath, Anemia, Tachycardia, Heme positive stool Critical Care Time Critical Care Time: Yes Total Critical Care Time: 45 I have personally spent 45 minutes of critical care time in the direct management of this patient. This includes bedside care, interpretation of diagnostic studies, and testing, discussion with consultants, patient, and family members, and other required patient management activities. This 45 minutes is in excess of all separately billable procedures. Discharge Plan Visit Data Chief Complaint: Referred by Doctor Stated Complaint: LOW BLOOD WORK - SOB ED Provider: Isra Asencio Discharge Problem: Shortness of breath, Anemia, Tachycardia, Heme positive stool Patient Disposition: Being Evaluated by Hospitalist Forms Stand Alone Forms: My [facility] Prescriptions Prescriptions: No Action pantoprazole 40 mg Tablet,Delayed Release (Dr/Ec) 40 mg PO QAM RF: 0 Trelegy Ellipta 100-62.5-25 mcg Blister With Device 1 inh INHALATION HS RF: 0 multivitamin [Multiple Vitamins] Tablet 1 tab PO DAILY RF: 0 cyanocobalamin (vitamin B-12) [Vitamin B-12] 1,000 mcg Tablet 1,000 mcg PO DAILY RF: 0 albuterol sulfate [Ventolin HFA] 90 mcg/actuation Hfa Aerosol Inhaler 2 puff inhalation Q4 PRN (Reason: Shortness Of Breath Or Wheezing) RF: 0 tramadol 50 mg tablet 50 mg PO Q6H PRN (Reason: pain) Qty: 30 RF: 0 vitamin E 200 unit Capsule 400 unit PO DAILY RF: 0 albuterol sulfate 2.5 mg /3 mL (0.083 %) Solution For Nebulization 2.5 mg INHALATION QID RF: 0 cod liver oil Capsule 1 cap PO DAILY RF: 0 aspirin 81 mg Tablet,Delayed Release (Dr/Ec) 81 mg PO QPM RF: 0 calcium carbonate [Calcium 600] 600 mg calcium (1,500 mg) Tablet 600 mg PO DAILY RF: 0 magnesium oxide [MagOx] 400 mg (241.3 mg magnesium) Tablet 400 mg PO DAILY RF: 0 ranitidine HCl [Zantac] 150 mg tablet 150 mg PO HS RF: 0 gabapentin [Neurontin] 300 mg capsule 300 mg PO QPM RF: 0 garlic 400 mg Tablet 400 mg PO DAILY RF: 0 cholecalciferol (vitamin D3) [Vitamin D3] 1,000 unit Capsule 2,000 unit PO DAILY RF: 0 biotin 1 mg Tablet 1 mg PO DAILY RF: 0 prednisone 10 mg tablet 10 mg PO .TAPER UD RF: 0 doxycycline hyclate 100 mg capsule 100 mg PO BID RF: 0 Referrals Referrals: Jessica Baum MD [Primary Care Provider] - Discharge Problem: Anemia Qualifiers: Anemia type: unspecified type Qualified Code(s): D64.9 - Anemia, unspecified The scribe's documentation has been prepared under my direction and personally reviewed by me in its entirety. I confirm that the note above accurately reflects all work, treatment, procedures, and medical decision making performed by me.
--- NOTE | 2019-05-29 21:15 | XRay Report ---
XR chest 1V portable HISTORY: 78 years-old Female weakness acute weakness with shortness of breath COMPARISON: Chest radiograph 05/28/2019 TECHNIQUE: Portable AP view of the chest FINDINGS: Cardiac silhouette is enlarged, unchanged. Large hiatal hernia redemonstrated. There is no pneumothor ax, pleural effusion, focal airspace consolidation or overt pulmonary edema. Degenerative changes of the shoulders and spine. IMPRESSION: 1. Cardiomegaly without overt pulmonary edema. 2. Large hiatal hernia. The above report was generated using voice recognition software. It may contain grammatical, syntax o r spelling errors. Electronically signed by: Sohail Betancourt M.D. 05/29/2019 9:12 PM
[2019-05-29 21:54] LABS: Partial Thromboplastin Ratio 0.7; Partial Thromboplastin Time < 20.0 Seconds (21.0-31.0); Prothrombin Time 9.8 Seconds (9.0-12.0)
[2019-05-29 21:58] LABS: Albumin Level 3.4 gm/dl (3.4-5.0); Aspartate Aminotransferase 14 U/L (15-37); BUN Creatinine Ratio 21.9 (10-20); Blood Urea Nitrogen 22 mg/dl (7-18); Calcium 8.9 mg/dl (8.5-10.1); Carbon Dioxide 26 mmol/L (21-32); Chloride 104 mmol/L (98-107); Creatinine Clr Calc Pharmacy 51.3 ml/min; Est GFR (African American) 62.8; Est GFR (Non-African American) 54.2; Glucose 128 mg/dl (70-99); Magnesium 2.4 mg/dl (1.8-2.4); Potassium 3.7 mmol/L (3.5-5.1); Sodium 140 mmol/L (136-145)
[2019-05-29 22:09] LABS: Alanine Aminotransferase 19 U/L (12-78); Alkaline Phosphatase 104 U/L (45-117); Bilirubin,Total 0.3 mg/dl (0.2-1); Globulin 3.6 gm/dl (2.5-4.0); Troponin I < 0.015 ng/ml (0-0.045)
[2019-05-29] MEDS ORDERED: GI COCKTAIL ED USE PO ONE (22:12)
[2019-05-29 22:39] LABS: Hematocrit (blood only) 28.1 % (37-47); Hemoglobin 7.6 g/dL (12.0-16.0); Mean Corpuscular Volume 70.8 fL (80-100); Mean Platelet Volume 10.1 fL (7.4-10.4); Nucleated RBC # (auto) 0.06 K/uL (0-0); Nucleated RBC % (auto) 0.4 %; Platelet Count 276 K/uL (130-400); RDW Coefficient of Variation 19.1 % (11.5-14.5); RDW Standard Deviation 49.4 fL (36.4-46.3); Red Blood Count 3.97 M/uL (4.2-5.4)
[2019-05-29 22:41] LABS: Basophils # (auto) 0.01 K/uL (0-0.2); Basophils % (auto) 0.1 %; Hypochromasia Present; Immature Granulocytes # (auto) 0.06 K/uL (0.00-0.02); Immature Granulocytes % (auto) 0.4 %; Lymphocytes # (auto) 2.96 K/uL (1.2-3.4); Monocytes # (auto) 1.24 K/uL (0.11-0.59); Monocytes % (auto) 8.8 %; Neutrophils # (auto) 9.83 K/uL (1.4-6.5); Neutrophils % (auto) 69.7 %; Ovalocytes 1+
--- NOTE | 2019-05-30 00:05 | History & Physical Report ---
Date of Service May 30, 2019 Assessment & Plan (1) Fatigue: 78-year-old female was admitted on 30 May 2019 for anemia and shortness of breath. Fatigue, anemia, suspected GI bleed: Patient notes fatigue for about a week, worse over the past 48 hours or so. No noted melanotic stools at home. Denies history of GI bleed. Referred from pulmonary office for anemia. Admit Hb 7.6, MCV 70. Is on a baby aspirin (for unknown reason). Has a history of GERD and a large hiatal hernia. Patient believes last colonoscopy was over 10 years ago with unknown results. - In ED, afebrile, tachycardic to 110s. Moderately hypertensive. Non-tender abdomen. Heme positive stool. - In ED, began transfusion of 2 units PRBCs. Treated with GI cocktail and famotidine. - Will keep on Pepcid 20 mg IV twice daily. Also sucralfate 1 gm PO QID. Consult gastroenterology. Keep NPO. Held aspirin. Check Hb around 7 am. GERD, large hiatal hernia: Does have some epigastric "burning like reflux" pain this evening. No chest pain. At home is on aspirin, pantoprazole, and Zantac. - In ED, TnI negative. EKG is sinus tachycardia, rate 110, with a PVC. pCXR notes large hiatal hernia. - In ED was treated with GI cocktail which resolved the patient's symptoms. - We will hold aspirin. Unclear why she is on it at all. Shortness of breath, COPD: Followed by Dr. Zepeda as outpatient. Patient has noted some increased SOB over past 48 hours. Was started on doxycycline and a prednisone taper yesterday by pulmonology. At home is on albuterol and Trelegy Ellipta regularly. Is normally on 2 L NC at night. May mostly be related to her anemia. - In ED, afebrile, mildly tachypneic, with 98% SpO2 on 3 L nasal cannula. WBC 14. pCXR read as cardiomegaly without overt pulmonary edema. - Will continue doxycycline and prednisone here. Scheduled duo nebs when awake. Tessalon Perles as needed. Ongoing medical issues: - Neuropathy: In the distal left lower extremity. Continue home gabapentin. - Question of low magnesium: Is on magnesium supplement. Admit Mg 2.4. May be able to stop this. Code status: Full code. Diet: N.p.o. except meds and ice chips. DVT prophy: SCDs. Chemical prophylaxis held due to suspected GI bleed. PT/OT: Deferred. Disbo: Admit to MedSurg. 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 Patient says she was seen there on by Dr. Zepeda and had some routine blood work done due to complaints of fatigue over the past week, worse in past 48 hours. She was told that she had low blood counts and was referred to the ED. She denies any previous history of anemia. She says during the same time she has had some increased shortness of breath, worse than her baseline COPD. She notes she uses 2 L of nasal cannula oxygen nightly but has had to use some during the day during this time. Has also been using her albuterol more often. She denies any known fevers or feeling of illness. Denies any vomiting, diarrhea, melena, or hematochezia stools. Says that she had a colonoscopy "a long time ago" and does not remember any results. She does note that occasionally she gets a "burning like reflux" feeling in her epigastric region. She says it feels identical to her known GERD and that she "takes medicine for that". No other acute patient concerns. - Past medical history includes COPD, GERD, hiatal hernia, ventral hernia, neuropathy, osteopenia, urge and stress incontinence, vertigo, PVCs. - Past surgical history includes spigelian hernia repair, cholecystectomy, left carpal tunnel release, appendectomy, tonsillectomy, umbilical hernia repair, varicose vein ligation and stripping. - Social history includes denies ever smoking but was exposed to wood burning stove for over 30 years. Denies alcohol use. Retired. . Lives at home with her son. Allergies Allergy/AdvReac Type Severity Reaction Status Date / Time No Known Allergies Allergy Verified 05/29/19 22:15 Home Medications Home Medications Medication Instructions Recorded Confirmed Type albuterol sulfate 2.5 mg INHALATION QID 08/06/18 05/29/19 History aspirin 81 mg PO QPM 08/06/18 05/29/19 History biotin 1 mg PO DAILY 08/06/18 05/29/19 History calcium carbonate [Calcium 600] 600 mg PO DAILY 08/06/18 05/29/19 History cholecalciferol (vitamin D3) 2,000 unit PO DAILY 08/06/18 05/29/19 History [Vitamin D3] cod liver oil 1 cap PO DAILY 08/06/18 05/29/19 History gabapentin [Neurontin] 300 mg PO QPM 08/06/18 05/29/19 History garlic 400 mg PO DAILY 08/06/18 05/29/19 History magnesium oxide [MagOx] 400 mg PO DAILY 08/06/18 05/29/19 History ranitidine HCl [Zantac] 150 mg PO HS 08/06/18 05/29/19 History vitamin E 400 unit PO DAILY 08/06/18 05/29/19 History Trelegy Ellipta 1 inh INHALATION HS 02/17/19 05/29/19 History cyanocobalamin (vitamin B-12) 1,000 mcg PO DAILY 02/17/19 05/29/19 History [Vitamin B-12] multivitamin [Multiple Vitamins] 1 tab PO DAILY 02/17/19 05/29/19 History pantoprazole 40 mg PO QAM 02/17/19 05/29/19 History albuterol sulfate [Ventolin HFA] 2 puff INHALATION Q4 PRN 02/25/19 05/29/19 History tramadol 50 mg PO Q6H PRN #30 tab 02/25/19 05/29/19 Rx doxycycline hyclate 100 mg PO BID 05/29/19 05/29/19 History prednisone 10 mg PO .TAPER UD 05/29/19 05/29/19 History Past Med/Surg History Medical History Mild persistent asthma (Chronic 05/11/11) Acid reflux COPD (chronic obstructive pulmonary disease) Hernia CURRENT "ABOVE BELLY BUTTON" Neuropathy Surgical History History of carpal tunnel surgery of left wrist History of cholecystectomy History of colonoscopy History of hernia surgery MULTIPLE Family History Daughter Family history of ovarian cancer Social History Preferred Language: Occitan Communication Ability: Effective Beliefs That Will Affect Care: None Current Living Situation: Other Current Living Situation Comment: SON LIVES WITH PT Feels Safe at Home: Yes Smoking Status: Never smoker Hx Alcohol Use: No Hx Substance Use: No Review of Systems Review of Systems: Constitutional: Denies fevers, chills, focal weakness Eyes: Denies any visual loss or diplopia ENT: Denies any ear/nose/throat pain or difficulty speaking or swallowing Respiratory: Positive mild shortness of breath. Cardiovascular: Denies any chest pain or feeling of edema Gastrointestinal: Positive epigastric "burning". Denies nausea, vomiting, or diarrhea. Musculoskeletal: Denies any acute extremity pains, myalgias, or focal weakness Skin: Denies any known acute rashes or lesions Neuro: Positive left lower extremity below the knee neuropathy. Denies any headache, acute focal weakness or numbness, or difficulties with speech or swallow. Physical Exam Physical Exam: GENERAL: Awake, alert, well-appearing, in no acute distress. HENT: Normocephalic, atraumatic. Oropharynx unremarkable. EYES: Normal conjunctiva. Sclera non-icteric. NECK: Inspection normal. Non-tender. Supple and full ROM. CARDIAC: +S1S2 regular tachycardia, no murmurs. RESPIRATORY: Clear to auscultation. No wheezes or rales. Has some slight dyspnea but is easily conversational. On 3 L nasal cannula oxygen. GI: +BS, soft, non-distended. No tenderness to palpation. No rebound or guarding. Large ventral hernia that is non-tender and partially reducible. EXTREMITIES: No pedal edema or calf tenderness. Moving all extremities naturally and easily. Some varicose veins present. NEURO: No gross neuro deficits. Results & Data Vital Signs (Past 12 Hours) Vital Signs Temp Pulse Pulse Resp BP Pulse Ox 05/29/19 23:46 103 H 27 H 162/84 H 96 05/29/19 23:37 37.1 C 105 H 22 155/124 H 95 05/29/19 23:30 105 H 28 H 155/124 H 96 05/29/19 23:23 113 H 27 H 156/103 H 97 05/29/19 23:22 36.7 C 111 H 21 156/103 H 98 05/29/19 23:04 36.6 C 107 H 22 150/117 H 99 05/29/19 23:01 109 H 27 H 190/98 H 97 05/29/19 23:00 111 H 27 H 99 05/29/19 22:31 110 H 22 156/82 H 98 05/29/19 22:30 108 H 30 H 99 05/29/19 22:01 108 H 26 H 126/107 H 100 05/29/19 22:00 108 H 23 100 05/29/19 21:31 116 H 21 154/95 H 98 05/29/19 21:30 115 H 24 99 05/29/19 21:28 114 H 39 H 166/103 H 98 05/29/19 21:19 117 H 22 98 05/29/19 21:01 118 H 20 98 05/29/19 21:00 119 H 24 99 05/29/19 20:57 118 H 26 H 99 05/29/19 20:52 113 H 29 H 162/91 H 99 05/29/19 20:30 36.5 C 125 H 24 162/108 H 97 Laboratory Results 05/29/19 05/29/19 05/29/19 Range/Units 21:14 21:14 21:14 WBC 14.10 H (4.8-10.8) K/uL RBC 3.97 L (4.2-5.4) M/uL Hgb 7.6 L (12.0-16.0) g/dL Hct 28.1 L (37-47) % MCV 70.8 L (80-100) fL MCH 19.1 L (25-34) pg MCHC 27.0 L (32-36) g/dL RDW Std Deviation 49.4 H (36.4-46.3) fL RDW Coeff of Michael 19.1 H (11.5-14.5) % Plt Count 276 (130-400) K/uL MPV 10.1 (7.4-10.4) fL Immature Gran % (Auto) 0.4 % Neut % (Auto) 69.7 % Lymph % (Auto) 21.0 % Newberry % (Auto) 8.8 % Eos % (Auto) 0.0 % Baso % (Auto) 0.1 % Immature Gran # (Auto) 0.06 H (0.00-0.02) K/uL Neut # (Auto) 9.83 H (1.4-6.5) K/uL Lymph # (Auto) 2.96 (1.2-3.4) K/uL Newberry # (Auto) 1.24 H (0.11-0.59) K/uL Eos # (Auto) 0.00 (0-0.5) K/uL Baso # (Auto) 0.01 (0-0.2) K/uL Absolute Nucleated RBC 0.06 H (0-0) K/uL Nucleated RBC % (auto) 0.4 % Hypochromasia Present Ovalocytes 1+ PT 9.8 (9.0-12.0) Seconds INR 1.0 (0.9-1.1) APTT < 20.0 L (21.0-31.0) Seconds PTT Ratio 0.7 Sodium 140 (136-145) mmol/L Potassium 3.7 (3.5-5.1) mmol/L Chloride 104 (98-107) mmol/L Carbon Dioxide 26 (21-32) mmol/L Anion Gap 11.0 (3-11) BUN 22 H (7-18) mg/dl Creatinine 0.99 (0.6-1.2) mg/dl Est Cr Clr Drug Dosing 51.3 ml/min Est GFR ( Amer) 62.8 Est GFR (Non-Af Amer) 54.2 BUN/Creatinine Ratio 21.9 H (10-20) Glucose 128 H (70-99) mg/dl Calcium 8.9 (8.5-10.1) mg/dl Magnesium 2.4 (1.8-2.4) mg/dl Total Bilirubin 0.3 (0.2-1) mg/dl AST 14 L (15-37) U/L ALT 19 (12-78) U/L Alkaline Phosphatase 104 (45-117) U/L Troponin I < 0.015 (0-0.045) ng/ml Total Protein 7.0 (6.4-8.2) gm/dl Albumin 3.4 (3.4-5.0) gm/dl Globulin 3.6 (2.5-4.0) gm/dl Albumin/Globulin Ratio 1.0 (0.9-2) TSH 3.400 (0.300-4.500) uIu/ml Blood Type Antibody Screen Crossmatch 05/29/19 Range/Units 20:59 WBC (4.8-10.8) K/uL RBC (4.2-5.4) M/uL Hgb (12.0-16.0) g/dL Hct (37-47) % MCV (80-100) fL MCH (25-34) pg MCHC (32-36) g/dL RDW Std Deviation (36.4-46.3) fL RDW Coeff of Michael (11.5-14.5) % Plt Count (130-400) K/uL MPV (7.4-10.4) fL Immature Gran % (Auto) % Neut % (Auto) % Lymph % (Auto) % Newberry % (Auto) % Eos % (Auto) % Baso % (Auto) % Immature Gran # (Auto) (0.00-0.02) K/uL Neut # (Auto) (1.4-6.5) K/uL Lymph # (Auto) (1.2-3.4) K/uL Newberry # (Auto) (0.11-0.59) K/uL Eos # (Auto) (0-0.5) K/uL Baso # (Auto) (0-0.2) K/uL Absolute Nucleated RBC (0-0) K/uL Nucleated RBC % (auto) % Hypochromasia Ovalocytes PT (9.0-12.0) Seconds INR (0.9-1.1) APTT (21.0-31.0) Seconds PTT Ratio Sodium (136-145) mmol/L Potassium (3.5-5.1) mmol/L Chloride (98-107) mmol/L Carbon Dioxide (21-32) mmol/L Anion Gap (3-11) BUN (7-18) mg/dl Creatinine (0.6-1.2) mg/dl Est Cr Clr Drug Dosing ml/min Est GFR ( Amer) Est GFR (Non-Af Amer) BUN/Creatinine Ratio (10-20) Glucose (70-99) mg/dl Calcium (8.5-10.1) mg/dl Magnesium (1.8-2.4) mg/dl Total Bilirubin (0.2-1) mg/dl AST (15-37) U/L ALT (12-78) U/L Alkaline Phosphatase (45-117) U/L Troponin I (0-0.045) ng/ml Total Protein (6.4-8.2) gm/dl Albumin (3.4-5.0) gm/dl Globulin (2.5-4.0) gm/dl Albumin/Globulin Ratio (0.9-2) TSH (0.300-4.500) uIu/ml Blood Type O Positive Antibody Screen NEGATIVE Crossmatch See Detail Medications Administered Discontinued Medications Al Hydrox/Mg Hydrox/Simethicone () 1 dose PO ONE ONE Stop: 05/29/19 22:13 Last Admin: 05/29/19 22:16 Dose: 1 dose Documented by: [id number] Albuterol (Duoneb) 3 ml NEB NOW STA Stop: 05/29/19 20:48 Last Admin: 05/29/19 20:59 Dose: 3 ml Documented by: [id number] Famotidine (Pepcid 20mg Iv Push) 20 mg IV ONE STA Stop: 05/29/19 20:49 Last Admin: 05/29/19 21:28 Dose: 20 mg Documented by: [id number] Sodium Chloride (Nss) 500 mls @ 999 mls/hr IV .Q31M MASOUD Stop: 05/29/19 21:15 Last Infusion: 05/29/19 22:05 Dose: 0 mls/hr Documented by: [id number] Admin: 05/29/19 21:28 Dose: 999 mls/hr Documented by: [id number] Code Status & VTE Plan Code Status Full code VTE Prophylaxis Plan VTE Prophylaxis will be ordered: Yes Supervising Physician Co-Signing Physician Notes Patient seen and examined, chart reviewed, case discussed with Dr. Ohara and I agree with his assessment and plan as documented above. Briefly, patient is a vicente 69yo C female with history of GERD, Hiatal hernia, on daily ASA 81mg for reasons unknown. Patient presents with complaints of fatigue and dyspnea x 1 week, worse over the last 2 days. She was recently seen by pulmonary for SOB and was prescribed Doxycycline and Prednisone. Routine labs ordered at that time. Patient was contacted by Pulm and told to come to the ER for anemia, Hg of 7.6 (was 12.7 from 07/2018). She denies melena/hematochezia, hematuria, bleeding or bruising, no back or flank pain. No additional complaints On exam she is afebrile, tachycardic at 104, blood pressure 143/86, NAD HEENT - NC/AT, PERRL, pale conjunctiva and oral mucosa, neck supple Heart - +S1/S2, regular, no m/r/g Lungs - CTA, diminished throughout Abd - +BS, soft, NT/ND, ventral hernia Ext - No edema Labs and images reviewed, Rectal exam in Er with brown stool, Heme + Assessment/Plan: Patient with microcytic/hypochromic anemia in setting of daily ASA use, PO steroids, GERD and hiatal hernia. No report of melena/hematochezia. Suspect slow blood loss resulting in microcytic/Fe deficiency anemia. Symptomatic anemia presenting with fatigue and CANSECO. Iron studies not sent prior to transfusion - could be sent in outpatient setting. Transfusion 2u PRBCs ordered. Will monitor CBC. GI consult. Pepcid BID, Sucralfate. Remainder of plan as above. PG Care Time/CCT Total # of Minutes Spent Total Time Spent with Patient: Total time spent is greater than 50% in coordination of care (as documented) at patient's floor/unit and/or counseling patient: Resident Activity Tracking Resident Involvement: Resident Care Provided Care Provided: Adult Hospital Medicine (1) Anemia Anemia type: unspecified type Qualified Code(s): D64.9 - Anemia, unspecified
[2019-05-30 00:43] LABS: Appearance Urine Clear (Clear); Bilirubin Urine Negative (Negative); Blood Urine Negative (Negative); Color Urine Yellow; Glucose Urine UA Negative (Negative); Ketones Urine Trace (Negative); Leukocyte Esterase Urine Negative (Negative); Nitrite Urine Negative (Negative); Protein Urine Negative (Negative); Specific Gravity Urine 1.028 (1.000-1.030); Urobilinogen Urine Negative (Negative)
[2019-05-30] MEDS ORDERED: BENZONATATE 100 MG CAPSULE PO PRN (01:53)
[2019-05-30] MEDS ORDERED: ALBUTEROL HFA 8 GM INHALER INH PRN (01:53)
[2019-05-30] MEDS ORDERED: ONDANSETRON INJ 2 MG/ML 2 ML VIAL IV PRN (01:53)
[2019-05-30] MEDS: ALBUT/IPRATROP 3MG/0.5MG NEB 3 ML VIAL NEB SCH ×4 (07:13→19:22)
[2019-05-30] MEDS ORDERED: SUCRALFATE 1 GM/10 ML UDC PO SCH (07:30)
[2019-05-30 07:45] LABS: Hematocrit (blood only) 31.1 % (37-47); Hemoglobin 8.8 g/dL (12.0-16.0)
--- NOTE | 2019-05-30 08:53 | Anesthesiology Consultation ---
Date of Service May 30, 2019 Assessment & Plan (1) Encounter for pre-operative examination: Chart Review Chart Review: Acceptable Risk for Surgery, Patient NOT seen in Pre Admission Testing and manager entry initiated Consults Requested none Proposed Anesthesia Risk / Benefits Reviewed With: PT / POA / Parent / Guardian, Accepts Plan and Informed Consent Obtained History Surgery Operation Date: 05/30/19 09:15 Proposed Procedures p Esophagogastroduodenoscopy Dr Priscilla Wells Operation Date: 05/30/19 09:15 Proposed Procedures p Esophagogastroduodenoscopy Dr Priscilla Wells Operation Date: 05/30/19 09:40 Proposed Procedures p Esophagogastroduodenoscopy - Dani Wells Height/Weight Height: 5 ft 3 in Weight: 94.9 kg Allergies Allergy/AdvReac Type Severity Reaction Status Date / Time No Known Allergies Allergy Verified 05/29/19 22:15 Medications Home Medications Medication Instructions Recorded Confirmed Last Taken albuterol sulfate 2.5 mg INHALATION QID 08/06/18 05/29/19 02/25/19 07:00 aspirin 81 mg PO QPM 08/06/18 05/29/19 01/28/19 biotin 1 mg PO DAILY 08/06/18 05/29/19 01/28/19 calcium carbonate [Calcium 600] 600 mg PO DAILY 08/06/18 05/29/19 01/28/19 cholecalciferol (vitamin D3) 2,000 unit PO DAILY 08/06/18 05/29/19 01/28/19 [Vitamin D3] cod liver oil 1 cap PO DAILY 08/06/18 05/29/19 Unknown gabapentin [Neurontin] 300 mg PO QPM 08/06/18 05/29/19 02/24/19 20:00 garlic 400 mg PO DAILY 08/06/18 05/29/19 Unknown magnesium oxide [MagOx] 400 mg PO DAILY 08/06/18 05/29/19 Unknown ranitidine HCl [Zantac] 150 mg PO HS 08/06/18 05/29/19 02/24/19 20:00 vitamin E 400 unit PO DAILY 08/06/18 05/29/19 01/28/19 Trelegy Ellipta 1 inh INHALATION HS 02/17/19 05/29/19 02/16/19 cyanocobalamin (vitamin B-12) 1,000 mcg PO DAILY 02/17/19 05/29/19 01/28/19 [Vitamin B-12] multivitamin [Multiple Vitamins] 1 tab PO DAILY 02/17/19 05/29/19 01/28/19 pantoprazole 40 mg PO QAM 02/17/19 05/29/19 02/24/19 08:00 albuterol sulfate [Ventolin HFA] 2 puff INHALATION Q4 PRN 02/25/19 05/29/19 02/25/19 07:00 tramadol 50 mg PO Q6H PRN #30 tab 02/25/19 05/29/19 Unknown doxycycline hyclate 100 mg PO BID 05/29/19 05/29/19 05/29/19 08:00 prednisone 10 mg PO .TAPER UD 05/29/19 05/29/19 05/29/19 08:00 Active Medications Generic Name Dose Route Start Last Admin Trade Name Freq PRN Reason Stop Dose Admin Albuterol 3 ml 05/30/19 08:00 05/30/19 15:05 Duoneb NEB 06/29/19 07:59 3 ml QIDR MASOUD Administration Calcium Carbonate 1,250 mg 05/30/19 09:00 05/30/19 09:14 Os-Guillermo 500 PO 06/29/19 08:59 1,250 mg DAILY MASOUD Administration Cyanocobalamin 1,000 mcg 05/30/19 09:00 05/30/19 09:15 Vitamin B-12 PO 06/29/19 08:59 1,000 mcg DAILY MASOUD Administration Doxycycline Hyclate 100 mg 05/30/19 09:00 05/30/19 09:15 Vibramycin PO 06/06/19 08:59 100 mg BID MASOUD Administration Famotidine 20 mg/ Syringe 5 mls @ 2.5 mls/min 05/30/19 09:00 05/30/19 09:14 IV 06/29/19 08:59 2.5 mls/min BID MASOUD Administration Prednisone 40 mg 05/30/19 09:00 05/30/19 09:11 Prednisone PO 06/29/19 08:59 Not Given QAM [facility] Past Medical History Medical History Anemia S/p 1 unit PRBC 05/29/19 Mild persistent asthma (Chronic 05/11/11) Acid reflux COPD (chronic obstructive pulmonary disease) On 2L NC Hernia CURRENT "ABOVE BELLY BUTTON" Neuropathy Exercise / Class Metabolic Activity II 4-5 Yardwork/Stairs/Walk up hill Past Family History Family History Daughter Family history of ovarian cancer Past Surgical History Surgical History History of carpal tunnel surgery of left wrist History of cholecystectomy History of colonoscopy History of hernia surgery MULTIPLE Past Anesthesia History No Hx of Anesthesia Complications and No Family Hx of Anesthesia Complications History of PONV No Hx of PONV and No Hx of Motion Sickness Social History Smoking Status: Never smoker Hx Alcohol Use: No Hx Substance Use: No substance use type: does not use Physical Exam Vital Signs Last Vital Signs Temp 36.7 C 05/30/19 15:33 Pulse 106 H 05/30/19 15:33 Resp 20 05/30/19 15:33 BP 133/80 05/30/19 15:33 Pulse Ox 95 05/30/19 15:33 ENMT Mouth: no TMJ abnormality Thyromental Distance: > or= 3.5 Finger Breadths Mallampati Class: II Neck normal visual inspection Respiratory normal respiratory effort Auscultation: lungs clear to auscultation bilaterally Cardiovascular Rate/Rhythm: regular rate and regular rhythm Heart Sounds: no murmur Vessels: no carotid bruit Neurologic moves all extremities Psychiatric Orientation: alert and oriented x 3 Testing Laboratory Results 05/30/19 10:07 05/29/19 21:14 PT 9.8 Seconds (9.0-12.0) 05/29/19 21:14 INR 1.0 (0.9-1.1) 05/29/19 21:14 APTT < 20.0 Seconds (21.0-31.0) L 05/29/19 21:14 Urine Color Yellow 05/30/19 00:20 Urine Appearance Clear (Clear) 05/30/19 00:20 Urine pH 5.0 (4.5-7.5) 05/30/19 00:20 Ur Specific [place]ila 1.028 (1.000-1.030) 05/30/19 00:20 Urine Protein Negative (Negative) 05/30/19 00:20 Urine Glucose (UA) Negative (Negative) 05/30/19 00:20 Urine Ketones Trace (Negative) H 05/30/19 00:20 Urine Nitrite Negative (Negative) 05/30/19 00:20 Ur Leukocyte Esterase Negative (Negative) 05/30/19 00:20 Blood Type O Positive 05/29/19 20:59 Antibody Screen NEGATIVE 05/29/19 20:59 Electrocardiogram Date: 05/29/19 Findings: + ST @ (110 bpm with occasional PVCs) Nonspecific ST and T wave abnormality Chest X-Ray Date: 05/29/19 Findings: + NAD 1. Cardiomegaly without overt pulmonary edema 2. Hiatal hernia
[2019-05-30] MEDS ORDERED: FAMOTIDINE 20 MG in SYRINGE 3 ML IV SCH (09:00)
[2019-05-30] MEDS: predniSONE 20 MG TAB PO SCH (09:11)
[2019-05-30] MEDS: CALCIUM CARBONATE 1250MG TAB PO SCH (09:14)
[2019-05-30] MEDS: CYANOCOBALAMIN 500 MCG TABLET (VITAMIN B-12) PO SCH (09:15)
[2019-05-30] MEDS: DOXYCYCLINE HYCLATE 100 MG CAP PO SCH ×2 (09:15→21:05)
[2019-05-30 11:02] LABS: Hematocrit (blood only) 31.4 % (37-47); Hemoglobin 8.8 g/dL (12.0-16.0)
--- NOTE | 2019-05-30 15:16 | Gastrointestinal Consultation ---
Date of Consultation May 30, 2019 Assessment & Plan (1) Heme positive stool: Source of heme pos stool whether upper or lower not entirely clear because no gross bleeding. Pt on ASA and Prednisone so at risk of UGI pathology and has some epigastric pain. Start with EGD and if negative then do outpt colonscopy. Proc and risks explained to patient which include but not limited to med reaction, bleeding, perforation aspiration, and missed lesions. Epigastric pain--EGD microcytic anemia--no Fe studies but c/w Fe Def anemia--stable , transfuse prn History of Present Illness Reason for Consultation: Anemia, heme pos stool Requesting Physician: DR Sohail Ohara Attending Physician: Raquel Crawford MD History of Present Illness CC low hemoglobin HPI No scopes seen in [facility] or [facility] EMR. Distant colonscopy with unkwown results. No bloody nor black stools. Pt on ASA and prednisone and Protonix. NO bloody nor black stools. PT noted to have Hgb of 7.6 (microcytic) at pulmonary office and told to come to ER. Stool noted to be brown and heme pos in ER. Hgb 12.7 08/07/18 . CXR showed large HH. Pt has some weakness and increased shortness of breath over baseline. Has COPD and on 2 L O2 at night. She has some epigastric pain at times. Allergies Allergy/AdvReac Type Severity Reaction Status Date / Time No Known Allergies Allergy Verified 05/29/19 22:15 Home Medications Home Medications Medication Instructions Recorded Confirmed Type albuterol sulfate 2.5 mg INHALATION QID 08/06/18 05/29/19 History aspirin 81 mg PO QPM 08/06/18 05/29/19 History biotin 1 mg PO DAILY 08/06/18 05/29/19 History calcium carbonate [Calcium 600] 600 mg PO DAILY 08/06/18 05/29/19 History cholecalciferol (vitamin D3) 2,000 unit PO DAILY 08/06/18 05/29/19 History [Vitamin D3] cod liver oil 1 cap PO DAILY 08/06/18 05/29/19 History gabapentin [Neurontin] 300 mg PO QPM 08/06/18 05/29/19 History garlic 400 mg PO DAILY 08/06/18 05/29/19 History magnesium oxide [MagOx] 400 mg PO DAILY 08/06/18 05/29/19 History ranitidine HCl [Zantac] 150 mg PO HS 08/06/18 05/29/19 History vitamin E 400 unit PO DAILY 08/06/18 05/29/19 History Trelegy Ellipta 1 inh INHALATION HS 02/17/19 05/29/19 History cyanocobalamin (vitamin B-12) 1,000 mcg PO DAILY 02/17/19 05/29/19 History [Vitamin B-12] multivitamin [Multiple Vitamins] 1 tab PO DAILY 02/17/19 05/29/19 History pantoprazole 40 mg PO QAM 02/17/19 05/29/19 History albuterol sulfate [Ventolin HFA] 2 puff INHALATION Q4 PRN 02/25/19 05/29/19 History tramadol 50 mg PO Q6H PRN #30 tab 02/25/19 05/29/19 Rx doxycycline hyclate 100 mg PO BID 05/29/19 05/29/19 History prednisone 10 mg PO .TAPER UD 05/29/19 05/29/19 History Patient History Medical History Anemia S/p 1 unit PRBC 05/29/19 Mild persistent asthma (Chronic 05/11/11) Acid reflux COPD (chronic obstructive pulmonary disease) On 2L NC Hernia CURRENT "ABOVE [place]" Neuropathy Surgical History History of carpal tunnel surgery of left wrist History of cholecystectomy History of colonoscopy History of hernia surgery MULTIPLE Family History Daughter Family history of ovarian cancer Social History Preferred Language: Polish Communication Ability: Effective Construction Representative Required: No Beliefs That Will Affect Care: None Current Living Situation: Family Current Living Situation Comment: Lives with sonBryce Feels Safe at Home: Yes Safety Concerns: Feels Safe At This Time Smoking Status: Never smoker Second Hand Exposure: No Hx Alcohol Use: No Hx Substance Use: No Review of Systems Review of Systems: All systems reviewed & are unremarkable except as noted in HPI & below Physical Exam Constitutional: WD/WN, vitals as above Eyes: PERRL, conjunctivae normal, anicteric sclerae ENMT: external ear and nose normal, oropharynx normal Neck: normal visual inspection and trachea midline Respiratory: normal respiratory effort, lungs clear to auscultation Cardiovascular: RRR, no murmur, no edema Gastrointestinal (Abdomen): normal bowel sounds, soft, nontender, no hepatosplenomegaly Neurologic: PERRL, EOMI, accommodation nl, no face palsy, no dysarthria Psychiatric: A+Ox3, euthymic affect Results & Data Vital Signs (Past 12 Hours) Vital Signs Temp Pulse Resp BP Pulse Ox 05/30/19 15:05 102 H 16 95 05/30/19 11:35 77 16 95 05/30/19 07:14 95 H 16 95 05/30/19 07:07 36.6 C 98 H 20 162/81 H 93 05/30/19 03:51 96 H 155/90 H 97
[2019-05-30] MEDS ORDERED: ATROPINE SULFATE 0.1 MG/ML 10ML SYR IV PRN (15:42)
[2019-05-30] MEDS ORDERED: ePHEDrine sulfate 50 MG/ML AMP IV PRN (15:42)
--- NOTE | 2019-05-30 16:08 | GI REPORT ---
Patient Name: Rose Whyte Procedure Date: 05/30/2019 3:50 PM Date of : 1940 Admit Type: Inpatient Age: 78 Gender: Female Attending MD: Dani Wells MD Procedure: Upper GI endoscopy Providers: Dani Wells MD Referring MD: Raquel Crawford Indications: Iron deficiency anemia secondary to chronic blood loss, Heme positive stool Medicines: Monitored Anesthesia Care Complications: No immediate complications. Estimated blood loss: None. Estimated Blood Loss: Estimated blood loss: none. Procedure: Pre-Anesthesia Assessment: - The risks and benefits of the procedure and the sedation options and risks were discussed with the patient. All questions were answered and informed consent was obtained. - Patient identification and proposed procedure were verified prior to the procedure by the physician, the nurse and the sales center associate. The procedure was verified in the procedure room. After obtaining informed consent, the endoscope was passed under direct vision. Throughout the procedure, the patient's blood pressure, pulse, and oxygen saturations were monitored continuously. The Endoscope was introduced through the mouth, and advanced to the second part of duodenum. The upper GI endoscopy was accomplished without difficulty. The patient tolerated the procedure well. Findings: The Z-line was regular and was found 33 cm from the incisors. A 5 cm hiatal hernia was present. A few localized, large non-bleeding erosions were found in the cardia. There were stigmata of recent bleeding. Coating on the one perhaps from carafate made it difficult to fully evaluate. The examined duodenum was normal. The exam was otherwise without abnormality. Impression: - Z-line regular, 33 cm from the incisors. - 5 cm hiatal hernia. - Non-bleeding erosive gastropathy. - Normal examined duodenum. - The examination was otherwise normal. - No specimens collected. Recommendation: - [facility] same day. - Protonix 40 mg bid and carafate suspension ac and qhs with repeat EGD iin 6 -8 weeks but also colonoscopy as I am not clear this is adequate explanation for anemia. Dani Wells M.D. Dani Wells MD 05/30/2019 4:08:02 PM This report has been signed electronically. Note Initiated On: 05/30/2019 3:50 PM Number of Addenda: 0 I attest to the content of the Intraoperative Record and orders documented therein, exceptions below {[id number]}
--- NOTE | 2019-05-30 16:34 | Anesthesiology Progress Note ---
Date of Service May 30, 2019 Anesthesia Post Procedure Vital Signs Vital Signs: Temp Pulse Pulse Pulse Resp BP BP 05/30/19 16:27 105 H 20 05/30/19 16:22 103 H 20 05/30/19 16:15 101 H 20 05/30/19 16:10 104 H 20 05/30/19 16:04 103 H 17 05/30/19 15:33 36.7 C 112 H 106 H 20 157/109 H 05/30/19 15:05 102 H 16 05/30/19 11:35 77 16 05/30/19 07:14 95 H 16 05/30/19 07:07 36.6 C 98 H 20 05/30/19 03:51 96 H 05/30/19 01:55 36.7 C 103 H 20 05/30/19 00:30 104 H 21 05/30/19 00:01 106 H 23 143/86 H 05/30/19 00:00 106 H 21 05/29/19 23:47 105 H 28 H 05/29/19 23:46 103 H 27 H 162/84 H 05/29/19 23:37 37.1 C 105 H 22 155/124 H 05/29/19 23:30 105 H 28 H 155/124 H 05/29/19 23:23 113 H 27 H 156/103 H 05/29/19 23:22 36.7 C 111 H 21 156/103 H 05/29/19 23:04 36.6 C 107 H 22 150/117 H 05/29/19 23:01 109 H 27 H 190/98 H 05/29/19 23:00 111 H 27 H 05/29/19 22:31 110 H 22 156/82 H 05/29/19 22:30 108 H 30 H 05/29/19 22:01 108 H 26 H 126/107 H 05/29/19 22:00 108 H 23 05/29/19 21:31 116 H 21 154/95 H 05/29/19 21:30 115 H 24 05/29/19 21:28 114 H 39 H 166/103 H 05/29/19 21:19 117 H 22 05/29/19 21:01 118 H 20 05/29/19 21:00 119 H 24 05/29/19 20:57 118 H 26 H 05/29/19 20:52 113 H 29 H 162/91 H 05/29/19 20:30 36.5 C 125 H 24 162/108 H BP Pulse Ox 05/30/19 16:27 151/90 H 93 05/30/19 16:22 130/75 94 05/30/19 16:15 144/83 H 93 05/30/19 16:10 124/64 97 05/30/19 16:04 130/79 99 05/30/19 15:33 133/80 95 05/30/19 15:05 95 05/30/19 11:35 95 05/30/19 07:14 95 05/30/19 07:07 162/81 H 93 05/30/19 03:51 155/90 H 97 05/30/19 01:55 169/88 H 96 05/30/19 00:30 98 05/30/19 00:01 99 05/30/19 00:00 99 05/29/19 23:47 99 05/29/19 23:46 96 05/29/19 23:37 95 05/29/19 23:30 96 05/29/19 23:23 97 05/29/19 23:22 98 05/29/19 23:04 99 05/29/19 23:01 97 05/29/19 23:00 99 05/29/19 22:31 98 05/29/19 22:30 99 05/29/19 22:01 100 05/29/19 22:00 100 05/29/19 21:31 98 05/29/19 21:30 99 05/29/19 21:28 98 05/29/19 21:19 98 05/29/19 21:01 98 05/29/19 21:00 99 05/29/19 20:57 99 05/29/19 20:52 99 05/29/19 20:30 97 Pain Intensity Medial Chest: Pain Intensity: 6 Abdomen: Pain Intensity: 3 Transfer of Care Handoff Completed per policy Notes Mental Status: alert / awake / arousable Patient Amnestic to Procedure: Yes Nausea / Vomiting: adequately controlled Pain: adequately controlled Airway Patency, RR, SpO2: stable & adequate BP & HR: stable & adequate Hydration State: stable & adequate Anesthetic Complications: no major complications apparent and Pt Satisfied with anesthetic care
[2019-05-30] MEDS: SUCRALFATE 1 GM/10 ML UDC PO SCH ×2 (16:48→21:05)
--- NOTE | 2019-05-30 18:00 | Gastroenterology Progress Note ---
Date of Service May 30, 2019 Assessment & Plan (1) Acute erosive gastritis: Pt stable s/p EGD. Tolerating solid diet. No abd pain. Discussed findings with john , pt and son. Recommend she stop ASA since no hx of [place] or stroke. Protonix 40 mg bid and carafate 4 times daily. View of gastritis obscurred by material coating the area which could not be washed (?carafate). Not clear the gastritis is adequate to explain anemia so recommend colonoscopy in 6 weeks along with EGD to document healing of ulcer. Ok for DC from Gi standpoint. Will sign off. Results & Data Vital Signs (Past 12 Hours) Vital Signs Temp Pulse Pulse Resp BP BP Pulse Ox 05/30/19 17:00 36.4 C L 103 H 18 130/73 92 05/30/19 16:27 105 H 20 151/90 H 93 05/30/19 16:22 103 H 20 130/75 94 05/30/19 16:15 101 H 20 144/83 H 93 05/30/19 16:10 104 H 20 124/64 97 05/30/19 16:04 103 H 17 130/79 99 05/30/19 15:33 36.7 C 112 H 106 H 20 157/109 H 133/80 95 05/30/19 15:05 102 H 16 95 05/30/19 11:35 77 16 95 05/30/19 07:14 95 H 16 95 05/30/19 07:07 36.6 C 98 H 20 162/81 H 93
[2019-05-30 18:19] LABS: Hematocrit (blood only) 28.5 % (37-47); Hemoglobin 8.1 g/dL (12.0-16.0)
--- NOTE | 2019-05-30 19:27 | Family Medicine Progress Note ---
Date of Service May 30, 2019 Assessment & Plan (1) Heme positive stool: 78 year old woman who presents with anemia and heme positive stool discovered incidentally by Orthopedic Assistant Dr. Zepeda Anemia Hemoglobin of 7.6 on admission with heme positive stool, no hematemesis, melena, or hematochezia Transfused 1 unit of PRBC's in ED EGD today by Dr. Wells showing several areas of erosions, but no clear source of profound anemia Recommendation is for outpatient follow up EGD and possible colonoscopy No evidence for any acute bleeding hemoglobin stable since transfusion 8.8 Will continue to monitor q6h overnight and d/c tomorrow if stable Loose stools Likely secondary to procedure but since she has had recent antibiotics we will send for C. Diff Will continue to monitor tomorrow F/E/N: Regular diet DVT PPx: Mechanical 2/2 GI bleed Dispo: Med-Surg (2) Anemia: (3) Shortness of breath: (4) Fatigue: Supervising Physician Co-Signing Physician Notes Resident Physician Supervision Note: I independently interviewed and examined the patient and verified the portillo history and physical, reviewed labs and image studies, discussed the case with the resident Dr. Ortiz and agree with the findings and care plan. Subjective See Today's H and P Review of Systems Review of Systems: See today's H and P Physical Exam Physical Exam: See today's H and P Results & Data Vital Signs (Past 12 Hours) Vital Signs Temp Pulse Pulse Resp BP BP Pulse Ox 05/30/19 17:00 36.4 C L 103 H 18 130/73 92 05/30/19 16:27 105 H 20 151/90 H 93 05/30/19 16:22 103 H 20 130/75 94 05/30/19 16:15 101 H 20 144/83 H 93 05/30/19 16:10 104 H 20 124/64 97 05/30/19 16:04 103 H 17 130/79 99 05/30/19 15:33 36.7 C 112 H 106 H 20 157/109 H 133/80 95 05/30/19 15:05 102 H 16 95 05/30/19 11:35 77 16 95 PG Care Time/CCT Total # of Minutes Spent Total Time Spent with Patient: Total time spent is greater than 50% in coordinator cardiopulmonary services rdination of care (as documented) at patient's floor/unit and/or counseling patient: Resident Activity Tracking Resident Involvement: Resident Care Provided Care Provided: Adult Hospital Medicine (1) Anemia Anemia type: unspecified type Qualified Code(s): D64.9 - Anemia, unspecified
[2019-05-30] MEDS ORDERED: GABAPENTIN 300 MG CAP PO SCH (21:00)
[2019-05-30] MEDS ORDERED: FLUTICASONE/UMECLIDIN/VILANTER INH SCH (21:00)
[2019-05-30] MEDS: PANTOprazole 40 MG TAB PO SCH (21:05)
[2019-05-30 23:41] LABS: Hematocrit (blood only) 28.5 % (37-47)
[2019-05-31 04:05] LABS: Hematocrit (blood only) 29.6 % (37-47); Hemoglobin 8.5 g/dL (12.0-16.0)
[2019-05-31] MEDS: ALBUT/IPRATROP 3MG/0.5MG NEB 3 ML VIAL NEB SCH (07:21)
[2019-05-31] MEDS: predniSONE 20 MG TAB PO SCH (07:38)
[2019-05-31] MEDS: PANTOprazole 40 MG TAB PO SCH (07:39)
[2019-05-31] MEDS: SUCRALFATE 1 GM/10 ML UDC PO SCH (07:39)
[2019-05-31] MEDS: DOXYCYCLINE HYCLATE 100 MG CAP PO SCH (07:39)
[2019-05-31] MEDS: CYANOCOBALAMIN 500 MCG TABLET (VITAMIN B-12) PO SCH (07:39)
[2019-05-31] MEDS: CALCIUM CARBONATE 1250MG TAB PO SCH (07:39)
--- NOTE | 2019-05-31 10:14 | Anesthesiology Progress Note ---
Date of Service May 31, 2019 Anesthesia Post Procedure Vital Signs Vital Signs: Temp Pulse Pulse Resp BP BP Pulse Ox 05/31/19 10:11 36.6 C 95 H 106 H 20 144/60 H 122/69 97 05/31/19 07:36 36.6 C 95 H 20 144/60 H 97 05/31/19 07:22 98 H 18 97 05/30/19 23:37 36.5 C 101 H 18 122/69 92 05/30/19 19:24 93 H 20 95 05/30/19 17:00 36.4 C L 103 H 18 130/73 92 05/30/19 16:27 105 H 20 151/90 H 93 05/30/19 16:22 103 H 20 130/75 94 05/30/19 16:15 101 H 20 144/83 H 93 05/30/19 16:10 104 H 20 124/64 97 05/30/19 16:04 103 H 17 130/79 99 05/30/19 15:33 36.7 C 112 H 106 H 20 157/109 H 133/80 95 05/30/19 15:05 102 H 16 95 05/30/19 11:35 77 16 95 Pain Intensity Medial Chest: Pain Intensity: 6 Abdomen: Pain Intensity: 3 Transfer of Care Handoff Completed per policy Notes Mental Status: alert / awake / arousable and participated in evaluation Patient Amnestic to Procedure: Yes Nausea / Vomiting: adequately controlled Pain: adequately controlled Airway Patency, RR, SpO2: stable & adequate BP & HR: stable & adequate Hydration State: stable & adequate Anesthetic Complications: no major complications apparent and Pt Satisfied with anesthetic care
[2019-05-31 10:15] LABS: Hematocrit (blood only) 30.4 % (37-47); Hemoglobin 8.6 g/dL (12.0-16.0)
--- NOTE | 2019-05-31 16:54 | Discharge Summary ---
Date of Service May 31, 2019 Admission HPI Per Admitting Provider 78-year-old female presents to the emergency department with her family after being referred from her director of guidance office. Patient says she was seen there on by Dr. Zepeda and had some routine blood work done due to complaints of fatigue over the past week, worse in past 48 hours. She was told that she had low blood counts and was referred to the ED. She denies any previous history of anemia. She says during the same time she has had some increased shortness of breath, worse than her baseline COPD. She notes she uses 2 L of nasal cannula oxygen nightly but has had to use some during the day during this time. Has also been using her albuterol more often. She denies any known fevers or feeling of illness. Denies any vomiting, diarrhea, melena, or hematochezia stools. Says that she had a colonoscopy "a long time ago" and does not remember any results. She does note that occasionally she gets a "burning like reflux" feeling in her epigastric region. She says it feels identical to her known GERD and that she "takes medicine for that". No other acute patient concerns. - Past medical history includes COPD, GERD, hiatal hernia, ventral hernia, neuropathy, osteopenia, urge and stress incontinence, vertigo, PVCs. - Past surgical history includes spigelian hernia repair, cholecystectomy, left carpal tunnel release, appendectomy, tonsillectomy, umbilical hernia repair, varicose vein ligation and stripping. - Social history includes denies ever smoking but was exposed to wood burning stove for over 30 years. Denies alcohol use. Retired. . Lives at home with her son. Admission Exam Per Admitting Provider GENERAL: Awake, alert, well-appearing, in no acute distress. HENT: Normocephalic, atraumatic. Oropharynx unremarkable. EYES: Normal conjunctiva. Sclera non-icteric. NECK: Inspection normal. Non-tender. Supple and full ROM. CARDIAC: +S1S2 regular tachycardia, no murmurs. RESPIRATORY: Clear to auscultation. No wheezes or rales. Has some slight dyspnea but is easily conversational. On 3 L nasal cannula oxygen. GI: +BS, soft, non-distended. No tenderness to palpation. No rebound or gu arding. Large ventral hernia that is non-tender and partially reducible. EXTREMITIES: No pedal edema or calf tenderness. Moving all extremities naturally and easily. Some varicose veins present. NEURO: No gross neuro deficits. Principal Diagnosis Occult GI bleed, anemia Discharge Exam Constitutional: Patient well-appearing sitting up in bed talking to various family members. Appears in no current distress. [place]: Eyes anicteric sclera extraocular motions intact conjunctival pallor is present. Respiratory: Patient breathing comfortably breath sounds vesicular in both lung loja chest expansion symmetrical Cardiovascular heart sounds dual regular rate and rhythm peripheral pulses inta ct mild edema of lower extremities Gastrointestinal abdomen soft nontender globally no masses detected no hepatosplenomegaly Discharge Data Allergies Allergy/AdvReac Type Severity Reaction Status Date / Time No Known Allergies Allergy Verified 05/29/19 22:15 Consultations 05/29/19 22:43 ED Decision to Admit Stat 05/30/19 01:53 Consult Gastroenterology Routine 05/31/19 10:15 Consult [facility] bilingual operator Routine Consult [facility] bilingual operator Routine Procedures Performed Operation Date: 05/30/19 09:15 <No data on this case meets the specified criteria> Operation Date: 05/30/19 09:15 Actual Procedures p Esophagogastroduodenoscopy Dr Wells - Dani Wells Operation Date: 05/30/19 09:40 <No data on this case meets the specified criteria> Hospital Course (1) Acute erosive gastritis: Rose rashid is a 78-year-old woman who presented to [facility] emergency department with anemia and occult heme positive stool. Anemia Patient initially presented to pulmonology office with complaints of fatigue and worsening shortness of breath. Patient was treated for potential COPD exacerbation with doxycycline and prednisone taper and routine blood work was drawn. Patient was found to have a hemoglobin of 7.6 and was transferred to [facility] emergency department patient was found to have heme positive stool and was transfused 1 unit of packed red blood cells. Hemoglobin improved to 8.8 and has remained steady since 8.6 on the day of discharge. Vital signs have remained stable throughout. Patient was seen by GI who recommended upper endoscopy. EGD was performed by Dr. Wells with several erosive lesions but none actively bleeding. No definitive evidence for her blood loss. GI recommendation was for patient to be rescoped in 6 weeks and if nothing conclusive colonoscopy at the same time.Will need repeat hemoglobin measurement later this week Patient's aspirin and prednisone Discontinued due to GI bleeding Shortness of breath- Likely secondary to anemia rather than COPD exacerbation seemed to improve with transfusion and physical exam showing relatively clear lungs no wheezing (2) Anemia: (3) Shortness of breath: (4) Heme positive stool: Total Time Total Time Spent Total Time Spent (In Minutes): 35 Discharge Plan Discharge Items Patient Disposition: Home - Self-Care Reason For Visit: FATIGUE,ANEMIA,SOB Discharge Diagnosis: Anemia, Occult chronic GI bleed Discharge Goals: Diagnostic testing and Improve disease control Activity: Resume your previous activity Non-emergency contact: Primary Care Provider and Marketing Designer Call non-emergency contact if: you have any medication questions, your symptoms worsen and your temperature is above 100.5 Follow-up/Referrals: Jessica Baum MD [Primary Care Provider] - Diet: Regular Addtl Provider Instructions: Ms. Rashid it was a pleasure to meet and evaluate you for your anemia and suspected chronic GI bleed. You were transfused one unit of blood in the emergency department and your hemolobin has remained fairly stable. There is no evidence for any current bleeding. Dr. Wells from gastroenterology evaluated you with an upper GI endoscopy and found some possible culprit lesions but nothing definitive and nothing actively bleeding. At this time your are safe to return home and follow up for a repeat upper endoscopy in six weeks and if that is inconclusive a colonoscopy at that time as well. Please follow up with your primary care physician within the next week for a hospital follow up and to check hemoglobin level in your blood. If you notice any dark or tarry stools, or any rico blood in your stool or vomit please return to medical care. Moving forward, we would ask that you stop taking your aspirin and steroid for now as these can increase your risk of GI bleeding. Prescriptions: Continued pantoprazole 40 mg Tablet,Delayed Release (Dr/Ec) 40 mg PO QAM RF: 0 Trelegy Ellipta 100-62.5-25 mcg Blister With Device 1 inh INHALATION HS RF: 0 multivitamin [Multiple Vitamins] Tablet 1 tab PO DAILY RF: 0 cyanocobalamin (vitamin B-12) [Vitamin B-12] 1,000 mcg Tablet 1,000 mcg PO DAILY RF: 0 albuterol sulfate [Ventolin HFA] 90 mcg/actuation Hfa Aerosol Inhaler 2 puff inhalation Q4 PRN (Reason: Shortness Of Breath Or Wheezing) RF: 0 tramadol 50 mg tablet 50 mg PO Q6H PRN (Reason: pain) Qty: 30 RF: 0 vitamin E 200 unit Capsule 400 unit PO DAILY RF: 0 albuterol sulfate 2.5 mg /3 mL (0.083 %) Solution For Nebulization 2.5 mg INHALATION QID RF: 0 cod liver oil Capsule 1 cap PO DAILY RF: 0 calcium carbonate [Calcium 600] 600 mg calcium (1,500 mg) Tablet 600 mg PO DAILY RF: 0 magnesium oxide [MagOx] 400 mg (241.3 mg magnesium) Tablet 400 mg PO DAILY RF: 0 ranitidine HCl [Zantac] 150 mg tablet 150 mg PO HS RF: 0 gabapentin [Neurontin] 300 mg capsule 300 mg PO QPM RF: 0 garlic 400 mg Tablet 400 mg PO DAILY RF: 0 cholecalciferol (vitamin D3) [Vitamin D3] 1,000 unit Capsule 2,000 unit PO DAILY RF: 0 biotin 1 mg Tablet 1 mg PO DAILY RF: 0 doxycycline hyclate 100 mg capsule 100 mg PO BID RF: 0 Discontinued aspirin 81 mg Tablet,Delayed Release (Dr/Ec) 81 mg PO QPM RF: 0 prednisone 10 mg tablet 10 mg PO .TAPER UD RF: 0 Stand-Alone Forms: [facility] Discharge Orders: Discharge Order (Routine); Ordered 05/31/19 Ordered By: Vitaly Ortiz Admission Data Admit Date/Time: 05/30/19 00:33 Attending Provider: Raquel Crawford Admit Provider: Sohail Ohara Primary Care Provider: Jessica Baum V. Other Providers: Rebecca Penn Brian D. Service: Medical Other Interventions: Discharge Summary Assessment (RN) Last Done: 05/31/19 10:11 DC Date/Time DO NOT enter until pt leaves facility: 05/31/19 10:28 Supervising Physician Co-Signing Physician Notes Resident Physician Supervision Note: I independently interviewed and examined the patient and verified the portillo history and physical, reviewed labs and image studies, discussed the case with the resident Dr. Ortiz and agree with the findings and care plan. Time spent in discharge 35 min Resident Activity Tracking Resident Involvement: Resident Care Provided Care Provided: Adult [facility] Medicine
== END 2019-05-31 10:28 | disposition home or self-care (01) | DRG 379 ==
LOC: ED 20:29 → 4E 05-30 00:33 → SUATTDRO 05-30 00:33 → 4E 05-30 01:27

== ENCOUNTER 2019-09-20 15:23 | Inpatient (IN) ==
[2019-09-20] MEDS ORDERED: SODIUM CHLORIDE 0.9% 1000ML 500 ML IV ONE (15:43)
[2019-09-20 16:10] LABS: Basophils # (auto) 0.01 K/uL (0-0.2); Basophils % (auto) 0.1 %; Eosinophils # (auto) 0.03 K/uL (0-0.5); Eosinophils % (auto) 0.2 %; Hematocrit (blood only) 37.2 % (37-47); Hemoglobin 11.3 g/dL (12.0-16.0); Immature Granulocytes # (auto) 0.04 K/uL (0.00-0.02); Immature Granulocytes % (auto) 0.3 %; Lymphocytes # (auto) 0.66 K/uL (1.2-3.4); Lymphocytes % (auto) 5.5 %; Mean Corpuscular Hemoglobin 24.8 pg (25-34); Mean Corpuscular Hgb Conc 30.4 g/dL (32-36); Mean Corpuscular Volume 81.8 fL (80-100); Mean Platelet Volume 10.8 fL (7.4-10.4); Monocytes # (auto) 0.78 K/uL (0.11-0.59); Monocytes % (auto) 6.5 %; Neutrophils # (auto) 10.53 K/uL (1.4-6.5); Neutrophils % (auto) 87.4 %; Platelet Count 154 K/uL (130-400); RDW Coefficient of Variation 17.5 % (11.5-14.5); RDW Standard Deviation 52.2 fL (36.4-46.3); Red Blood Count 4.55 M/uL (4.2-5.4); White Blood Count 12.05 K/uL (4.8-10.8)
--- NOTE | 2019-09-20 16:10 | XRay Report ---
XR chest 1V portable CLINICAL HISTORY: Cough and fever. COMPARISON STUDY: Chest CT February 14, 2017 and chest radiograph May 29, 2019. FINDINGS: Lung volumes are normal. Lungs are clear. There is no pneumothorax or pleural effusion. Car diac size is normal. Mediastinal contours are normal. There is no evidence for pulmonary edema. A lar ge hiatal hernia is noted. IMPRESSION: 1. No acute cardiopulmonary findings. 2. Large hiatal hernia. Electronically signed by: Yared Moe M.D. 09/20/2019 4:08 PM
[2019-09-20 16:22] LABS: Partial Thromboplastin Ratio 0.8; Partial Thromboplastin Time 21.7 Seconds (21.0-31.0); Prothrombin Time 10.5 Seconds (9.0-12.0)
[2019-09-20 16:32] LABS: Base Excess VBG 3.6 mEq/L; Oxygen Saturation VBG 89.2 %; pH VBG 7.5 (7.36-7.41)
[2019-09-20 16:37] LABS: Alanine Aminotransferase 22 U/L (12-78); Albumin Level 3.1 gm/dl (3.4-5.0); Alkaline Phosphatase 81 U/L (45-117); BUN Creatinine Ratio 20.8 (10-20); Bilirubin,Total 0.9 mg/dl (0.2-1); Blood Urea Nitrogen 23 mg/dl (7-18); Calcium 8.5 mg/dl (8.5-10.1); Carbon Dioxide 25 mmol/L (21-32); Chloride 101 mmol/L (98-107); Creatinine Clr Calc Pharmacy 44.1 ml/min; Est GFR (African American) 54.1; Est GFR (Non-African American) 46.7; Glucose 162 mg/dl (70-99); Lipase 46 U/L (73-393); Sodium 134 mmol/L (136-145); Total Protein 6.8 gm/dl (6.4-8.2); Troponin I < 0.015 ng/ml (0-0.045)
[2019-09-20 16:47] LABS: Influenza A virus by PCR Neg for Influ A (Neg); Influenza B virus by PCR Neg for Influ B (Neg)
[2019-09-20 16:49] LABS: Appearance Urine Turbid (Clear); Bacteria Urine Automated 4+ (Negative); Bilirubin Urine Negative (Negative); Blood Urine 2+ (Negative); Color Urine Dark Yellow; Epithelial Cell Urine Auto >30 /lpf (0-5); Glucose Urine UA Negative (Negative); Ketones Urine Trace (Negative); Leukocyte Esterase Urine 2+ (Negative); Nitrite Urine Positive (Negative); Protein Urine 1+ (Negative); Specific Gravity Urine 1.021 (1.000-1.030); Urobilinogen Urine Negative (Negative); WBC Urine Automated >30 /hpf (0-5)
[2019-09-20 16:58] LABS: Aspartate Aminotransferase 25 U/L (15-37); Bilirubin Direct 0.2 mg/dl (0-0.2); Magnesium 2.4 mg/dl (1.8-2.4)
--- NOTE | 2019-09-20 17:11 | CT Scan Report ---
CT OF THE ABDOMEN AND PELVIS WITHOUT CONTRAST CLINICAL HISTORY: Right flank pain and fever. Evaluate for kidney stone. COMPARISON STUDY: CT of the abdomen and pelvis May 09, 2011. TECHNIQUE: Axial images of the abdomen and pelvis were obtained without IV contrast. Images were revi ewed in the axial, sagittal, and coronal planes. Automated exposure control was utilized for the fina dy. A dose lowering technique was utilized adhering to the principles of ALARA. FINDINGS: Lung bases are unremarkable. Moderate to large hiatal hernia is noted. A 5 mm x 3 mm distal right ureteral calculus, located just proximal to the ureterovesical junction results in mild right hydroureteronephrosis with mild perinephric infiltration. No additional urinary calculi are identifie d. There is a suspected cyst within the midpole of the left kidney. Unenhanced images of the adrenal glands, spleen and pancreas are unremarkable. Mild biliary ductal dilatation is unchanged and likely related to previous cholecystectomy. There is slight nodularity of the liver surface with possible fa tty infiltration. Ventral hernia contains a portion of the transverse colon without bowel obstruction . A previous umbilical hernia repair with mesh is noted. Adjacent hernia is noted. There are fat-cont aining bilateral inguinal hernias. There is no evidence for a bowel obstruction. No ascites is presen t. There is no lymphadenopathy. No suspicious osseous lesions are present. L2, L4 and S1 compression deformity are likely old. There is sigmoid diverticulosis without evidence for acute diverticulitis. IMPRESSION: 1. 5 mm x 3 mm distal right ureteral calculus which results in mild right hydroureteronephrosis with perinephric infiltration. 2. Ventral hernia which contains a portion of the transverse colon. Several additional ventral hernia s. No bowel obstruction. Fat-containing bilateral inguinal hernias. Electronically signed by: Yared Moe M.D. 09/20/2019 5:10 PM
[2019-09-20] MEDS ORDERED: cefTRIAXone SODIUM 1,000 MG/50 ML BAG IV STA (17:14)
--- NOTE | 2019-09-20 17:56 | Emergency Department Note ---
Entered by Bernie Thompson acting as a scribe for Messi Parra History of Present Illness General Chief complaint: Fever Stated complaint: BACK PAIN,DIARRHEA,VOMITING,FEVER Time Seen by Provider: 09/20/19 15:38 History of Present Illness Provider complaint: fever Onset (ago): day(s) 3 Pain Consistency: + other (episode) Maximum Pain Intensity: 5 Quality: + other (fever) Associated symptoms: + denies other symptoms (hematochezia, hematuria, sick contact), + cough (productive), + nausea/vomiting and + other (right lower back pain, diarrhea, 1 episode of burning upon urination last week) Treatments prior to arrival: other (oxygen via nasal cannula) The patient is a 78 year old female who presents to the ED with complaints of an episode of a fever that started 3 days ago. The patient states that she has also had right lower back pain, a productive cough, diarrhea and vomiting. The patient notes that she had 1 episode of burning upon urination last week, but nothing since. The patient states that she usually only wears oxygen via nasal cannula at night, but has been wearing it all day today. The patient denies hematochezia, hematuria and sick contact. Home Medications Home Medications Medication Instructions Recorded Confirmed Type cod liver oil 1 cap PO QAM 08/06/18 09/20/19 History garlic 400 mg PO DAILY 08/06/18 09/20/19 History Trelegy Ellipta 1 inh INHALATION HS 02/17/19 09/20/19 History cyanocobalamin (vitamin B-12) 1,000 mcg PO QAM 02/17/19 09/20/19 History [Vitamin B-12] ranitidine 150 mg tablet 150 mg PO HS #90 tab 07/04/19 09/20/19 Rx ferrous sulfate 325 mg (65 mg 325 mg PO QAM tab 07/09/19 09/20/19 History iron) tablet Centrum 1 tab PO QAM 07/25/19 09/20/19 History cholecalciferol (vitamin D3) 2,000 unit PO QAM 07/25/19 09/20/19 History [Vitamin D3] magnesium 250 mg PO QAM 07/25/19 09/20/19 History vitamin E 400 unit PO QAM 07/25/19 09/20/19 History gabapentin 300 mg capsule 300 mg PO QPM 08/14/19 09/20/19 History pantoprazole 40 mg tablet,delayed 40 mg PO QAM #30 tab 09/17/19 09/20/19 Rx release albuterol sulfate 2.5 mg INHALATION Q4 PRN 09/20/19 09/20/19 History benzonatate [Tessalon Perles] 100 mg PO BID PRN 09/20/19 09/20/19 History calcium carbonate-vitamin D3 1 cap PO DAILY 09/20/19 09/20/19 History [Calcium 600 + D(3)] Allergies Allergy/AdvReac Type Severity Reaction Status Date / Time No Known Allergies Allergy Verified 09/20/19 16:50 Past Med/Surg History Social History Preferred Language: Emirati Communication Ability: Effective Design Project Manager Required: No Beliefs That Will Affect Care: None Current Living Situation: Family Current Living Situation Comment: Lives with sonBryce Other Information That Helps Us Care for You: No Feels Safe at Home: Yes Safety Concerns: Feels Safe At This Time Smoking Status: Never smoker Second Hand Exposure: No ; Hx Alcohol Use: No Hx Substance Use: No Seatbelt Use: always Review of Systems See HPI for pertinent positives & negatives. and A total of 10 systems reviewed and were otherwise negative Physical Exam Vital Signs Vital Signs - 24 hr 09/20/19 15:29 09/20/19 17:20 Temperature 37.6 C H 37.4 C Temperature Source Oral Oral Sepsis Recent Fever Within 48 Hours Yes Sepsis New/Unexplained Change in Mental Status No Sepsis Action Taken by Nursing No Action Required Pulse Rate 111 H Pulse Rate [Right Finger] 111 H Respiratory Rate 28 H 20 Blood Pressure 153/75 H Blood Pressure [Right Arm] 151/92 H Blood Pressure Mean 101 Blood Pressure Mean [Right Arm] 111 Pulse Oximetry 93 94 Oxygen Delivery Method Nasal Cannula Nasal Cannula Oxygen Flow Rate 2 2 GENERAL: She is oriented to person, place, and time. She appears well-developed and well-nourished. She does not appear distressed. HENT: Exam performed. Head: Normocephalic and atraumatic. Right Ear: External ear normal. No mastoid tenderness. Left Ear: External ear normal. No mastoid tenderness. Mouth/Throat: The oropharynx is clear and moist. No trismus in the jaw. No dental abscesses or uvula swelling. No oropharyngeal exudate or tonsillar abscesses. EYES: Conjunctivae and EOM are normal. Pupils are equal, round, and reactive to light. Right eye exhibits no discharge. Left eye exhibits no discharge. No scleral icterus. NECK: Normal range of motion. Neck supple. No JVD present. No spinous process tenderness present. No carotid bruit present. No rigidity. No tracheal deviation and normal range of motion present. No Brudzinski's sign and no Kernig's sign noted. CV: Tachycardic rate, regular rhythm, normal heart sounds and intact distal pulses. There is no peripheral edema. Palpable radial pulses bue. PULM/CHEST: Tachypneic. Effort normal and breath sounds normal. No respiratory distress. No stridor. Scant expiratory wheezes. She has no rales. Chest Wall: She exhibits no tenderness. ABD: The abdomen is soft. Bowel sounds are normal. She has no distension. No mass is present. There is no tenderness. There is no rebound, no guarding, no Fang's sign and no tenderness at McBurney's point. Rovsig negative MUSC/SKEL: Normal range of motion. There is no peripheral edema, tenderness or deformity. Right sided CVA tenderness. LYMPH: No cervical adenopathy. NEURO: She is alert and oriented to person, place, and time. She has normal strength. No cranial nerve deficit or sensory deficit. Coordination and gait normal. GCS eye subscore is 4. GCS verbal subscore is 5. GCS motor subscore is 6 . cerbellar tests wnl. SKIN: Skin is warm and dry. She is not diaphoretic. PSYCH: She has a normal mood and affect. Her behavior is normal. Judgment and thought content normal. Course 1539: Past medical records reviewed. The patient was evaluated in room C06. A complete history and physical exam was performed. 1720: Vital signs stable. Labs showed leukocytosis of 12 and urine appears infected. Imaging shows 3 x 5 mm right sided kidney stone with perinephric hydroureteronephrosis. Treated with Rocephin 1 g IV piggyback. Urology was consulted and patient will be evaluated by Hospitalist. I discussed the patient's case with Dr. Kowalski- [facility] Hospitalist. She will evaluate the patient for further management. Consultations Consultation #1: I discussed the patient's case with Dr. Kowalski- [facility] Hospitalist. She will evaluate the patient for further management. Time: 17:18 Administered Medications Discontinued Medications Sodium Chloride (Nss 1000ml) 500 mls @ 999 mls/hr IV .Q31M ONE Stop: 09/20/19 16:13 Last Admin: 09/20/19 16:11 Dose: 999 mls/hr Documented by: [id number] Ceftriaxone Sodium (Rocephin) 1,000 mg in 50 mls @ 100 mls/hr IV NOW STA Stop: 09/20/19 17:43 Last Admin: 09/20/19 17:27 Dose: 100 mls/hr Documented by: [id number] Medical Decision Making Medical Records Attestation: I reviewed the patient's medical records. Home Medications Current Medication List: was personally reviewed by me Laboratory Data Attestation: I reviewed the patient's lab results. Result diagrams: 09/20/19 15:58 09/20/19 15:58 Lab Results 09/20/19 09/20/19 09/20/19 Range/Units 15:58 15:58 15:58 WBC 12.05 H (4.8-10.8) K/uL RBC 4.55 (4.2-5.4) M/uL Hgb 11.3 L (12.0-16.0) g/dL Hct 37.2 (37-47) % MCV 81.8 (80-100) fL MCH 24.8 L (25-34) pg MCHC 30.4 L (32-36) g/dL RDW Std Deviation 52.2 H (36.4-46.3) fL RDW Coeff of Michael 17.5 H (11.5-14.5) % Plt Count 154 (130-400) K/uL MPV 10.8 H (7.4-10.4) fL Immature Gran % (Auto) 0.3 % Neut % (Auto) 87.4 % Lymph % (Auto) 5.5 % [place] % (Auto) 6.5 % Eos % (Auto) 0.2 % Baso % (Auto) 0.1 % Immature Gran # (Auto) 0.04 H (0.00-0.02) K/uL Neut # (Auto) 10.53 H (1.4-6.5) K/uL Lymph # (Auto) 0.66 L (1.2-3.4) K/uL [place] # (Auto) 0.78 H (0.11-0.59) K/uL Eos # (Auto) 0.03 (0-0.5) K/uL Baso # (Auto) 0.01 (0-0.2) K/uL PT 10.5 (9.0-12.0) Seconds INR 1.0 (0.9-1.1) APTT 21.7 (21.0-31.0) Seconds PTT Ratio 0.8 VBG pH (7.36-7.41) VBG pCO2 (38-50) mmHg VBG pO2 mmHg VBG HCO3 mmol/L VBG O2 Saturation % VBG Base Excess mEq/L Barometric Pressure mm/Hg Sodium 134 L (136-145) mmol/L Potassium 4.0 (3.5-5.1) mmol/L Chloride 101 (98-107) mmol/L Carbon Dioxide 25 (21-32) mmol/L Anion Gap 7.0 (3-11) BUN 23 H (7-18) mg/dl Creatinine 1.12 (0.6-1.2) mg/dl Est Cr Clr Drug Dosing 44.1 ml/min Est GFR ( Amer) 54.1 Est GFR (Non-Af Amer) 46.7 BUN/Creatinine Ratio 20.8 H (10-20) Glucose 162 H (70-99) mg/dl Lactate (0.4-2.0) mmol/L Calcium 8.5 (8.5-10.1) mg/dl Magnesium 2.4 (1.8-2.4) mg/dl Total Bilirubin 0.9 (0.2-1) mg/dl Direct Bilirubin 0.2 (0-0.2) mg/dl AST 25 (15-37) U/L ALT 22 (12-78) U/L Alkaline Phosphatase 81 (45-117) U/L Troponin I < 0.015 (0-0.045) ng/ml Total Protein 6.8 (6.4-8.2) gm/dl Albumin 3.1 L (3.4-5.0) gm/dl Lipase 46 L (73-393) U/L Urine Color Urine Appearance (Clear) Urine pH (4.5-7.5) Ur Specific [place] (1.000-1.030) Urine Protein (Negative) Urine Glucose (UA) (Negative) Urine Ketones (Negative) Urine Blood (Negative) Urine Nitrite (Negative) Urine Bilirubin (Negative) Urine Urobilinogen (Negative) Ur Leukocyte Esterase (Negative) Urine WBC (Auto) (0-5) /hpf Urine RBC (Auto) (0-4) /hpf U Hyaline Cast (Auto) (0-5) /lpf U Epithel Cells (Auto) (0-5) /lpf Urine Bacteria (Auto) (Negative) Influenza Type A (PCR) (Neg) Influenza Type B (PCR) (Neg) 09/20/19 09/20/19 09/20/19 Range/Units 15:58 16:19 16:19 WBC (4.8-10.8) K/uL RBC (4.2-5.4) M/uL Hgb (12.0-16.0) g/dL Hct (37-47) % MCV (80-100) fL MCH (25-34) pg MCHC (32-36) g/dL RDW Std Deviation (36.4-46.3) fL RDW Coeff of Michael (11.5-14.5) % Plt Count (130-400) K/uL MPV (7.4-10.4) fL Immature Gran % (Auto) % Neut % (Auto) % Lymph % (Auto) % [place] % (Auto) % Eos % (Auto) % Baso % (Auto) % Immature Gran # (Auto) (0.00-0.02) K/uL Neut # (Auto) (1.4-6.5) K/uL Lymph # (Auto) (1.2-3.4) K/uL [place] # (Auto) (0.11-0.59) K/uL Eos # (Auto) (0-0.5) K/uL Baso # (Auto) (0-0.2) K/uL PT (9.0-12.0) Seconds INR (0.9-1.1) APTT (21.0-31.0) Seconds PTT Ratio VBG pH 7.50 H (7.36-7.41) VBG pCO2 35 L (38-50) mmHg VBG pO2 55 mmHg VBG HCO3 27 mmol/L VBG O2 Saturation 89.2 % VBG Base Excess 3.6 mEq/L Barometric Pressure 735.7 mm/Hg Sodium (136-145) mmol/L Potassium (3.5-5.1) mmol/L Chloride (98-107) mmol/L Carbon Dioxide (21-32) mmol/L Anion Gap (3-11) BUN (7-18) mg/dl Creatinine (0.6-1.2) mg/dl Est Cr Clr Drug Dosing ml/min Est GFR ( Amer) Est GFR (Non-Af Amer) BUN/Creatinine Ratio (10-20) Glucose (70-99) mg/dl Lactate 1.4 (0.4-2.0) mmol/L Calcium (8.5-10.1) mg/dl Magnesium (1.8-2.4) mg/dl Total Bilirubin (0.2-1) mg/dl Direct Bilirubin (0-0.2) mg/dl AST (15-37) U/L ALT (12-78) U/L Alkaline Phosphatase (45-117) U/L Troponin I (0-0.045) ng/ml Total Protein (6.4-8.2) gm/dl Albumin (3.4-5.0) gm/dl Lipase (73-393) U/L Urine Color Urine Appearance (Clear) Urine pH (4.5-7.5) Ur Specific [place] (1.000-1.030) Urine Protein (Negative) Urine Glucose (UA) (Negative) Urine Ketones (Negative) Urine Blood (Negative) Urine Nitrite (Negative) Urine Bilirubin (Negative) Urine Urobilinogen (Negative) Ur Leukocyte Esterase (Negative) Urine WBC (Auto) (0-5) /hpf Urine RBC (Auto) (0-4) /hpf U Hyaline Cast (Auto) (0-5) /lpf U Epithel Cells (Auto) (0-5) /lpf Urine Bacteria (Auto) (Negative) Influenza Type A (PCR) Neg for Influ A (Neg) Influenza Type B (PCR) Neg for Influ B (Neg) 09/20/19 Range/Units 16:37 WBC (4.8-10.8) K/uL RBC (4.2-5.4) M/uL Hgb (12.0-16.0) g/dL Hct (37-47) % MCV (80-100) fL MCH (25-34) pg MCHC (32-36) g/dL RDW Std Deviation (36.4-46.3) fL RDW Coeff of Michael (11.5-14.5) % Plt Count (130-400) K/uL MPV (7.4-10.4) fL Immature Gran % (Auto) % Neut % (Auto) % Lymph % (Auto) % [place] % (Auto) % Eos % (Auto) % Baso % (Auto) % Immature Gran # (Auto) (0.00-0.02) K/uL Neut # (Auto) (1.4-6.5) K/uL Lymph # (Auto) (1.2-3.4) K/uL [place] # (Auto) (0.11-0.59) K/uL Eos # (Auto) (0-0.5) K/uL Baso # (Auto) (0-0.2) K/uL PT (9.0-12.0) Seconds INR (0.9-1.1) APTT (21.0-31.0) Seconds PTT Ratio VBG pH (7.36-7.41) VBG pCO2 (38-50) mmHg VBG pO2 mmHg VBG HCO3 mmol/L VBG O2 Saturation % VBG Base Excess mEq/L Barometric Pressure mm/Hg Sodium (136-145) mmol/L Potassium (3.5-5.1) mmol/L Chloride (98-107) mmol/L Carbon Dioxide (21-32) mmol/L Anion Gap (3-11) BUN (7-18) mg/dl Creatinine (0.6-1.2) mg/dl Est Cr Clr Drug Dosing ml/min Est GFR ( Amer) Est GFR (Non-Af Amer) BUN/Creatinine Ratio (10-20) Glucose (70-99) mg/dl Lactate (0.4-2.0) mmol/L Calcium (8.5-10.1) mg/dl Magnesium (1.8-2.4) mg/dl Total Bilirubin (0.2-1) mg/dl Direct Bilirubin (0-0.2) mg/dl AST (15-37) U/L ALT (12-78) U/L Alkaline Phosphatase (45-117) U/L Troponin I (0-0.045) ng/ml Total Protein (6.4-8.2) gm/dl Albumin (3.4-5.0) gm/dl Lipase (73-393) U/L Urine Color Dark Yellow Urine Appearance Turbid A (Clear) Urine pH 5.0 (4.5-7.5) Ur Specific [place] 1.021 (1.000-1.030) Urine Protein 1+ H (Negative) Urine Glucose (UA) Negative (Negative) Urine Ketones Trace H (Negative) Urine Blood 2+ H (Negative) Urine Nitrite Positive A (Negative) Urine Bilirubin Negative (Negative) Urine Urobilinogen Negative (Negative) Ur Leukocyte Esterase 2+ H (Negative) Urine WBC (Auto) >30 H (0-5) /hpf Urine RBC (Auto) 10-30 H (0-4) /hpf U Hyaline Cast (Auto) 1-5 (0-5) /lpf U Epithel Cells (Auto) >30 H (0-5) /lpf Urine Bacteria (Auto) 4+ H (Negative) Influenza Type A (PCR) (Neg) Influenza Type B (PCR) (Neg) Imaging Data Radiologist's Impression: Radiology results as stated below per my review and the radiologist's interpretation: XR chest 1V portable CLINICAL HISTORY: Cough and fever. COMPARISON STUDY: Chest CT February 14, 2017 and chest radiograph May 29, 2019. FINDINGS: Lung volumes are normal. Lungs are clear. There is no pneumothorax or pleural effusion. Cardiac size is normal. Mediastinal contours are normal. There is no evidence for pulmonary edema. A large hiatal hernia is noted. IMPRESSION: 1. No acute cardiopulmonary findings. 2. Large hiatal hernia. Electronically signed by: Yared Moe M.D. 09/20/2019 4:[address] OF THE ABDOMEN AND PELVIS WITHOUT CONTRAST CLINICAL HISTORY: Right flank pain and fever. Evaluate for kidney stone. COMPARISON STUDY: CT of the abdomen and pelvis May 09, 2011. TECHNIQUE: Axial images of the abdomen and pelvis were obtained without IV contrast. Images were reviewed in the axial, sagittal, and coronal planes. Automated exposure control was utilized for the study. A dose lowering technique was utilized adhering to the principles of ALARA. FINDINGS: Lung bases are unremarkable. Moderate to large hiatal hernia is noted. A 5 mm x 3 mm distal right ureteral calculus, located just proximal to the ureterovesical junction results in mild right hydroureteronephrosis with mild perinephric infiltration. No additional urinary calculi are identified. There is a suspected cyst within the midpole of the left kidney. Unenhanced images of the adrenal glands, spleen and pancreas are unremarkable. Mild biliary ductal dilatation is unchanged and likely related to previous cholecystectomy. There is slight nodularity of the liver surface with possible fatty infiltration. Ventral hernia contains a portion of the transverse colon without bowel obstruction. A previous umbilical hernia repair with mesh is noted. Adjacent hernia is noted. There are fat-containing bilateral inguinal hernias. There is no evidence for a bowel obstruction. No ascites is present. There is no lymphadenopathy. No suspicious osseous lesions are present. L2, L4 and S1 compression deformity are likely old. There is sigmoid diverticulosis without evidence for acute diverticulitis. IMPRESSION: 1. 5 mm x 3 mm distal right ureteral calculus which results in mild right hydroureteronephrosis with perinephric infiltration. 2. Ventral hernia which contains a portion of the transverse colon. Several additional ventral hernias. No bowel obstruction. Fat-containing bilateral inguinal hernias. Electronically signed by: Yared Moe M.D. 09/20/2019 5:10 PM ECG Data Attestation: I personally reviewed and interpreted this ECG as follows: Indication: tachycardia Rate (beats per minute): 104 Rhythm: sinus rhythm Findings: + other ([place], QRS, QTC within normal lilmits) and + PAC; no ST depression and no ST elevation Blood Pressure Blood Pressure Findings: Elevated blood pressure Blood Pressure Disposition: Referred to patients primary care provider MDM Narrative Vital signs stable. Labs showed leukocytosis of 12 and urine appears infected. Imaging shows 3 x 5 mm right sided kidney stone with perinephric hydroureteronephrosis. Treated with Rocephin 1 g IV piggyback. Urology was consulted and patient will be evaluated by Hospitalist. I discussed the patient's case with Dr. Kowalski- [facility] Hospitalist. She will evaluate the patient for further management. Impression & Plan Pyelonephritis, Kidney stone Discharge Plan Visit Data Chief Complaint: Fever Stated Complaint: BACK PAIN,DIARRHEA,VOMITING,FEVER ED Provider: Messi Parra Discharge Problem: Pyelonephritis, Kidney stone Patient Disposition: Being Evaluated by Hospitalist Forms Stand Alone Forms: My [facility] Prescriptions Prescriptions: No Action ranitidine HCl [Zantac] 150 mg tablet 150 mg PO HS Qty: 90 RF: 3 pantoprazole 40 mg tablet,delayed release (DR/EC) 40 mg PO QAM Qty: 30 RF: 5 ferrous sulfate [FerrouSul] 325 mg (65 mg iron) tablet 325 mg PO QAM RF: 0 Trelegy Ellipta 100-62.5-25 mcg Blister With Device 1 inh INHALATION HS RF: 0 cyanocobalamin (vitamin B-12) [Vitamin B-12] 1,000 mcg Tablet 1,000 mcg PO QAM RF: 0 magnesium 250 mg Tablet 250 mg PO QAM RF: 0 vitamin E 400 unit Capsule 400 unit PO QAM RF: 0 cholecalciferol (vitamin D3) [Vitamin D3] 2,000 unit Tablet 2,000 unit PO QAM RF: 0 Centrum 18-400 mg-mcg Tablet 1 tab PO QAM RF: 0 cod liver oil Capsule 1 cap PO QAM RF: 0 garlic 400 mg Tablet 400 mg PO DAILY RF: 0 gabapentin [Neurontin] 300 mg capsule 300 mg PO QPM RF: 0 Calcium 600 + D(3) 600 mg calcium- 200 unit Capsule 1 cap PO DAILY RF: 0 benzonatate [Tessalon Perles] 100 mg capsule 100 mg PO BID PRN (Reason: Cough) RF: 0 albuterol sulfate 2.5 mg /3 mL (0.083 %) solution for nebulization 2.5 mg inhalation Q4 PRN (Reason: Shortness Of Breath Or Wheezing) RF: 0 Referrals Referrals: Jessica Baum MD [Primary Care Provider] - The scribe's documentation has been prepared under my direction and personally reviewed by me in its entirety. I confirm that the note above accurately reflects all work, treatment, procedures, and medical decision making performed by me.
--- NOTE | 2019-09-20 18:10 | History & Physical Report ---
Date of Service September 20, 2019 Assessment & Plan (1) Pyelonephritis: Admit patient to PCU on telemetry Vital signs every 4 hours Started Rocephin 1 g every 24 hours in the ER Continue IV fluid hydration with normal saline Consulted urology Pain management for renal colic DVT prophylaxis with SCDs and teds Place patient n.p.o. after midnight for possible stent tomorrow Full code Present on Admission?: Yes (2) Kidney stone: Present on Admission?: Yes (3) Mild persistent asthma: As above continue home medicine albuterol 2.5 mg inhalation every 4 hours as needed, can continue Trelegy Ellipta 1 inhalation at bedtime Present on Admission?: Yes (4) COPD, moderate: Continue home medicine as above Present on Admission?: Yes (5) Peripheral neuropathy: Continue gabapentin 300 mg capsule p.o. every afternoon Present on Admission?: Yes (6) Dyslipidemia: Lipid panel pending Present on Admission?: Yes History of Present Illness Chief Complaint: Right flank pain Primary Care Provider: Jessica Kumar MD Patient is a 78 years old female with past medical history of COPD on 2 L oxygen at night, anemia, dyslipidemia, peripheral neuropathy who presents with complaint of right flank pain that has been ongoing for 2 days but worsening this morning. Patient did not try anything to improve her pain. Patient also reports that she had burning sensation when she urination 2 days ago. Patient denies fever chills chills, headache, chest pain, shortness of breath, hematuria, melena, hematochezia. Labs are reviewed: WBC 12.05, hemoglobin 11.3, hematocrit 37.2, platelets 154, PT 10.5, INR 1, APTT 21.7, sodium 134, potassium 4, chloride 101, BUN 23, creatinine 1.12, GFR 46.7, lactate 1.4, magnesium 2.4, AST 25, ALT 22, troponin 0 0.015, Albumin 3.1, lipase 46. Urine: Turbid, positive nitrates, leukocyte esterase 2+, WBCs over 30, RBCs 10-30 4+ bacteria. We will repeat urine analysis since catch does not appear to be clean. CT abdomen pelvis shows a 5 mm x 3 mm distal right ureteral calculus located just proximal to the urethrovesical junction that results in mild right hydronephrosis with kevin-nephritic infiltration. Decision was made to admit patient to PCU telemetry for nephrolithiasis and and further management and treatment. Allergies Allergy/AdvReac Type Severity Reaction Status Date / Time No Known Allergies Allergy Verified 09/20/19 16:50 Home Medications Home Medications Medication Instructions Recorded Confirmed Type cod liver oil 1 cap PO QAM 08/06/18 09/20/19 History garlic 400 mg PO DAILY 08/06/18 09/20/19 History Trelegy Ellipta 1 inh INHALATION HS 02/17/19 09/20/19 History cyanocobalamin (vitamin B-12) 1,000 mcg PO QAM 02/17/19 09/20/19 History [Vitamin B-12] ranitidine 150 mg tablet 150 mg PO HS #90 tab 07/04/19 09/20/19 Rx ferrous sulfate 325 mg (65 mg 325 mg PO QAM tab 07/09/19 09/20/19 History iron) tablet Centrum 1 tab PO QAM 07/25/19 09/20/19 History cholecalciferol (vitamin D3) 2,000 unit PO QAM 07/25/19 09/20/19 History [Vitamin D3] magnesium 250 mg PO QAM 07/25/19 09/20/19 History vitamin E 400 unit PO QAM 07/25/19 09/20/19 History gabapentin 300 mg capsule 300 mg PO QPM 08/14/19 09/20/19 History pantoprazole 40 mg tablet,delayed 40 mg PO QAM #30 tab 09/17/19 09/20/19 Rx release albuterol sulfate 2.5 mg INHALATION Q4 PRN 09/20/19 09/20/19 History benzonatate [Tessalon Perles] 100 mg PO BID PRN 09/20/19 09/20/19 History calcium carbonate-vitamin D3 1 cap PO DAILY 09/20/19 09/20/19 History [Calcium 600 + D(3)] Past Med/Surg History Medical History Anemia S/p 1 unit PRBC 05/29/19 Asthma COPD (chronic obstructive pulmonary disease) On 2L [place] Chronic pain LEFT LEG GERD (gastroesophageal reflux disease) On home oxygen therapy 2 LITERS Umbilical hernia Surgical History History of bunionectomy of both great toes History of carpal tunnel surgery of left wrist History of carpal tunnel surgery of right wrist History of cholecystectomy History of colonoscopy History of hernia surgery MULTIPLE Hx of tonsillectomy Hx of varicose vein ligation and stripping Family History Daughter Family history of ovarian cancer Brother Non Hodgkin's lymphoma Other Breast cancer Diabetes Hypertension Leukemia Prostate cancer Social History Preferred Language: [place] Communication Ability: 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 Required: No Beliefs That Will Affect Care: None Current Living Situation: Family Current Living Situation Comment: Lives with sonBryce Other Information That Helps Us Care for You: No Feels Safe at Home: Yes Safety Concerns: Feels Safe At This Time Smoking Status: Never smoker Second Hand Exposure: No ; Hx Alcohol Use: No Hx Substance Use: No Seatbelt Use: always Review of Systems Review of Systems: All systems reviewed & are unremarkable except as noted in HPI & below Physical Exam Constitutional: WD/WN, vitals as above well developed and + obese Eyes: PERRL, conjunctivae normal, anicteric sclerae ENMT: Hard of hearing Neck: trachea midline, no thyromegaly Respiratory: normal respiratory effort, lungs clear to auscultation Cardiovascular: RRR, no murmur, no edema Gastrointestinal (Abdomen): normal bowel sounds, soft, nontender, no hepatosplenomegaly Right costovertebral angle tenderness Musculoskeletal: no cyanosis or clubbing, extremities motor strength 5/5 Skin: no rashes, warm and dry Neurologic: patellar DTR's 2+ bilat, sensation intact Psychiatric: A+Ox3, euthymic affect Genitourinary: Right costovertebral angle tenderness. Mild suprapubic tenderness Lymphatic: no cervical or axillary lymphadenopathy Results & Data Vital Signs (Past 12 Hours) Vital Signs Temp Pulse Pulse Resp BP BP Pulse Ox 09/20/19 17:20 37.4 C 111 H 20 151/92 H 94 09/20/19 15:29 37.6 C H 111 H 28 H 153/75 H 93 Code Status & VTE Plan Code Status Full code VTE Prophylaxis Plan VTE Prophylaxis will be ordered: No PG Care Time/CCT Total # of Minutes Spent Total Time Spent with Patient: Total time spent is greater than 50% in coordination of care (as documented) at patient's floor/unit and/or counseling patient:
[2019-09-20] MEDS ORDERED: MAGNESIUM HYDROXIDE SUSP 30 ML UDC PO PRN (18:47)
[2019-09-20] MEDS ORDERED: KETOROLAC TROMETHAMINE 15 MG/ML VIAL IV PRN (18:47)
[2019-09-20] MEDS ORDERED: ONDANSETRON INJ 2 MG/ML 2 ML VIAL IV PRN (18:47)
[2019-09-20] MEDS ORDERED: ALUMINUM/MAGNESIUM SUSP 30 ML UDC PO PRN (18:47)
[2019-09-20] MEDS ORDERED: ACETAMINOPHEN 325 MG TAB PO PRN (18:47)
[2019-09-20 19:18] LABS: Thyroid Stimulating Hormone 3.27 uIu/ml (0.300-4.500)
[2019-09-20] MEDS: SODIUM CHLORIDE 0.9% 1000ML 1,000 ML IV SCH (20:05)
[2019-09-20] MEDS: GABAPENTIN 300 MG CAP PO SCH (20:12)
[2019-09-20] MEDS ORDERED: INFLUENZA VACCINE HIGH DOSE 65+ 0.5 ML SYR IM ONE (21:15)
[2019-09-20] MEDS ORDERED: PNEUMOCOCCAL POLYSACCHARIDES 25 MCG/0.5 ML VIAL/SYR IM ONE (21:15)
[2019-09-20] MEDS ORDERED: PNEUMOCOCCAL ADMINISTRATION CHARGE ONE (21:15)
[2019-09-20] MEDS ORDERED: INFLUENZA ADMINISTRATION CHARGE ONE (21:15)
[2019-09-20] MEDS: BENZONATATE 100 MG CAPSULE PO PRN (21:18)
[2019-09-20 22:06] LABS: Appearance Urine Turbid (Clear); Bilirubin Urine Negative (Negative); Blood Urine 3+ (Negative); Color Urine Dark Yellow; Epithelial Cell Urine Auto >30 /lpf (0-5); Glucose Urine UA Negative (Negative); Ketones Urine Negative (Negative); Leukocyte Esterase Urine 2+ (Negative); Nitrite Urine Positive (Negative); Protein Urine 2+ (Negative); Specific Gravity Urine 1.022 (1.000-1.030); Urobilinogen Urine Negative (Negative); WBC Urine Automated >30 /hpf (0-5)
[2019-09-20 22:37] LABS: Bacteria Urine Automated 1+ (Negative)
[2019-09-21] MEDS: OXYCODONE/ACETAMINOPHEN 5mg/325mg TAB PO PRN (02:22)
[2019-09-21] MEDS: SODIUM CHLORIDE 0.9% 1000ML 1,000 ML IV SCH ×3 (05:01→18:05)
[2019-09-21 05:48] LABS: Basophils # (auto) 0.01 K/uL (0-0.2); Basophils % (auto) 0.1 %; Eosinophils # (auto) 0.12 K/uL (0-0.5); Eosinophils % (auto) 1.5 %; Hematocrit (blood only) 34.3 % (37-47); Hemoglobin 10.3 g/dL (12.0-16.0); Immature Granulocytes # (auto) 0.02 K/uL (0.00-0.02); Immature Granulocytes % (auto) 0.3 %; Lymphocytes # (auto) 0.72 K/uL (1.2-3.4); Lymphocytes % (auto) 9.2 %; Mean Corpuscular Hemoglobin 24.5 pg (25-34); Mean Corpuscular Volume 81.5 fL (80-100); Mean Platelet Volume 10.9 fL (7.4-10.4); Monocytes # (auto) 0.31 K/uL (0.11-0.59); Monocytes % (auto) 3.9 %; Neutrophils # (auto) 6.67 K/uL (1.4-6.5); Platelet Count 131 K/uL (130-400); RDW Coefficient of Variation 17.3 % (11.5-14.5); Red Blood Count 4.21 M/uL (4.2-5.4); White Blood Count 7.85 K/uL (4.8-10.8)
[2019-09-21] MEDS ORDERED: CIPROFLOXACIN 400 MG/200 ML BAG IV SCH (06:00)
[2019-09-21 06:29] LABS: Albumin Level 2.5 gm/dl (3.4-5.0); BUN Creatinine Ratio 18.4 (10-20); Calcium 7.8 mg/dl (8.5-10.1); Creatinine Clr Calc Pharmacy 44.6 ml/min; Est GFR (African American) 54.7; Est GFR (Non-African American) 47.2; Potassium 3.9 mmol/L (3.5-5.1)
[2019-09-21 06:32] LABS: Albumin Globulin Ratio 0.8 (0.9-2); Bilirubin,Total 0.8 mg/dl (0.2-1); Globulin 3.3 gm/dl (2.5-4.0); Total Protein 5.8 gm/dl (6.4-8.2)
[2019-09-21] MEDS: CALCIUM 600MG + VIT D 400 IU TAB PO SCH (08:45)
[2019-09-21] MEDS: CEROVITE ADV FORMULA TAB PO SCH (08:45)
[2019-09-21] MEDS: CHOLECALCIFEROL 1,000 UNITS TAB PO SCH (08:45)
[2019-09-21] MEDS: TOCOPHERYL, DL-ALPHA 400 UNITS CAP PO SCH (08:45)
[2019-09-21] MEDS: MAGNESIUM OXIDE 400 MG TAB PO SCH (08:45)
[2019-09-21] MEDS: FERROUS SULFATE 325 MG TAB PO SCH (08:46)
[2019-09-21] MEDS: CYANOCOBALAMIN 500 MCG TABLET (VITAMIN B-12) PO SCH (08:46)
[2019-09-21] MEDS ORDERED: NON-FORMULARY MEDICATION (Cod Liver Oil 1 CAP) PO SCH (09:00)
[2019-09-21] MEDS ORDERED: NON-FORMULARY MEDICATION (Garlic 400 MG) PO SCH (09:00)
--- NOTE | 2019-09-21 09:22 | Urology Consultation ---
Date of Consultation September 21, 2019 Assessment & Plan (1) Kidney stone: A/P 78-year-old female with UTI and right distal ureteral stone. Despite her lack of clear febrile episodes, normal white count and lactate are rapidly positive urine culture is consistent with urinary tract infection. We will proceed to the operating room for cystoscopy, right ureteral stent placement and possible retrograde pyelography to decompress her right renal moiety. We will plan on staged management of her stone in the near future after her urinary tract infection has resolved. Will likely remain as inpatient until cultures and sensitivities have returned. Would plan on 2 weeks of antibiotics for complex UTI. Risks and benefits of intervention reviewed with the patient vocalizes good understanding of the treatment plan. Informed consent obtained and patient is marked on the right-hand side. We will proceed to the OR once available for intervention. Patient has been covered with ceftriaxone on the floor, will add a perioperative dose of ciprofloxacin. Thank you for allowing us to participate in this patient's acute care. Please contact our service with any questions or concerns. (2) Acute UTI: History of Present Illness Reason for Consultation: Urinary tract infection with right distal ureteral stone Attending Physician: Razia Mayers MD History of Present Illness 78-year-old female who presents last night with subjective fevers at home and right lower quadrant and right flank pain associated with malaise. Patient presented to the ER and underwent CT scan imaging demonstrating mild right hydronephrosis with a right distal ureteral stone. Images were personally reviewed. Patient was not clearly febrile on admission and was noted to have a normal white count and lactate. Creatinine was also noted to be within normal limits. She was admitted for antibiotics and observation. This morning she continues to complain of right lower quadrant pain and discomfort. Her urine culture from last night is noted to be preliminarily positive for gram-negative bacilli at greater than 100,000 count consistent with UTI. Consult placed this morning and care discussed with hospitalist for urologic input on her care. Patient is n.p.o. for possible intervention. She denies previous stone episode and denies stone passage or relief of symptoms. Allergies Allergy/AdvReac Type Severity Reaction Status Date / Time No Known Allergies Allergy Verified 09/20/19 16:50 Home Medications Home Medications Medication Instructions Recorded Confirmed Type cod liver oil 1 cap PO QAM 08/06/18 09/20/19 History garlic 400 mg PO DAILY 08/06/18 09/20/19 History Trelegy Ellipta 1 inh INHALATION HS 02/17/19 09/20/19 History cyanocobalamin (vitamin B-12) 1,000 mcg PO QAM 02/17/19 09/20/19 History [Vitamin B-12] ranitidine 150 mg tablet 150 mg PO HS #90 tab 07/04/19 09/20/19 Rx ferrous sulfate 325 mg (65 mg 325 mg PO QAM tab 07/09/19 09/20/19 History iron) tablet Centrum 1 tab PO QAM 07/25/19 09/20/19 History cholecalciferol (vitamin D3) 2,000 unit PO QAM 07/25/19 09/20/19 History [Vitamin D3] magnesium 250 mg PO QAM 07/25/19 09/20/19 History vitamin E 400 unit PO QAM 07/25/19 09/20/19 History gabapentin 300 mg capsule 300 mg PO QPM 08/14/19 09/20/19 History pantoprazole 40 mg tablet,delayed 40 mg PO QAM #30 tab 09/17/19 09/20/19 Rx release albuterol sulfate 2.5 mg INHALATION Q4 PRN 09/20/19 09/20/19 History benzonatate [Tessalon Perles] 100 mg PO BID PRN 09/20/19 09/20/19 History calcium carbonate-vitamin D3 1 cap PO DAILY 09/20/19 09/20/19 History [Calcium 600 + D(3)] Patient History Medical History Anemia S/p 1 unit PRBC 05/29/19 Asthma COPD (chronic obstructive pulmonary disease) On 2L [place] Chronic pain LEFT LEG GERD (gastroesophageal reflux disease) On home oxygen therapy 2 LITERS Umbilical hernia Surgical History History of bunionectomy of both great toes History of carpal tunnel surgery of left wrist History of carpal tunnel surgery of right wrist History of cholecystectomy History of colonoscopy History of hernia surgery MULTIPLE Hx of tonsillectomy Hx of varicose vein ligation and stripping Family History Daughter Family history of ovarian cancer Brother Non Hodgkin's lymphoma Other Breast cancer Diabetes Hypertension Leukemia Prostate cancer Social History Preferred Language: Syriac Communication Ability: Effective Layout Artist Required: No Beliefs That Will Affect Care: None Current Living Situation: Family Current Living Situation Comment: Lives with sonBryce Other Information That Helps Us Care for You: No Feels Safe at Home: Yes Safety Concerns: Feels Safe At This Time Smoking Status: Never smoker Do You Dip or Chew Tobacco: No ; Second Hand Exposure: No ; Hx Alcohol Use: No Hx Substance Use: No Seatbelt Use: always Review of Systems Constitutional: + fever (At home) and + chills Eyes: no diplopia Ear, Nose, Mouth, Throat: no ear trauma Respiratory: no hemoptysis Cardiovascular: no chest pain Gastrointestinal: + abdominal pain Integumentary: no acne and no boil Neurologic: no paralysis Psychiatric: no hopelessness Hematologic / Lymphatic: no lymphadenopathy Allergy / Immunological: no tongue swelling Physical Exam Constitutional: + acute distress (Mild distress due to discomfort) and + morbidly obese Eyes: eyes not dysmorphic ENMT: Ears: no external ear abnormality Neck: trachea midline; no anterior neck swelling Respiratory: no respiratory distress and does not use accessory muscles Cardiovascular: Vessels: radial pulses present Gastrointestinal (Abdomen): Inspection/Auscultation: abdomen not distended Percussion/Palpation: + abdomen tender (Right lower quadrant discomfort) and abdomen soft Musculoskeletal: Head/Neck/Chest: normocephalic and neck supple Skin: normal turgor Neurologic: awake; not obtunded Psychiatric: Orientation: oriented x 3 Lymphatic: no lymphadenopathy Results & Data Vital Signs (Past 12 Hours) Vital Signs Temp Pulse Resp BP Pulse Ox 09/21/19 06:24 36.7 C 97 H 20 94 09/21/19 03:54 36.8 C 98 H 19 156/97 H 91 09/20/19 23:38 36.7 C 94 H 17 123/80 91 Laboratory Results Laboratory Results - last 48 hr 09/20/19 09/20/19 09/20/19 15:58 15:58 15:58 WBC 12.05 H RBC 4.55 Hgb 11.3 L Hct 37.2 MCV 81.8 MCH 24.8 L MCHC 30.4 L RDW Std Deviation 52.2 H RDW Coeff of Michael 17.5 H Plt Count 154 MPV 10.8 H Immature Gran % (Auto) 0.3 Neut % (Auto) 87.4 Lymph % (Auto) 5.5 [place] % (Auto) 6.5 Eos % (Auto) 0.2 Baso % (Auto) 0.1 Immature Gran # (Auto) 0.04 H Neut # (Auto) 10.53 H Lymph # (Auto) 0.66 L [place] # (Auto) 0.78 H Eos # (Auto) 0.03 Baso # (Auto) 0.01 PT 10.5 INR 1.0 APTT 21.7 PTT Ratio 0.8 VBG pH VBG pCO2 VBG pO2 VBG HCO3 VBG O2 Saturation VBG Base Excess Barometric Pressure Sodium 134 L Potassium 4.0 Chloride 101 Carbon Dioxide 25 Anion Gap 7.0 BUN 23 H Creatinine 1.12 Est Cr Clr Drug Dosing 44.1 Est GFR ( Amer) 54.1 Est GFR (Non-Af Amer) 46.7 BUN/Creatinine Ratio 20.8 H Glucose 162 H Lactate Calcium 8.5 Magnesium 2.4 Total Bilirubin 0.9 Direct Bilirubin 0.2 AST 25 ALT 22 Alkaline Phosphatase 81 Troponin I < 0.015 NT-Pro-B Natriuret Pep Total Protein 6.8 Albumin 3.1 L Globulin Albumin/Globulin Ratio Lipase 46 L TSH Urine Color Urine Appearance Urine pH Ur Specific [place] Urine Protein Urine Glucose (UA) Urine Ketones Urine Blood Urine Nitrite Urine Bilirubin Urine Urobilinogen Ur Leukocyte Esterase Urine WBC (Auto) Urine RBC (Auto) U Hyaline Cast (Auto) U Epithel Cells (Auto) Urine Bacteria (Auto) Influenza Type A (PCR) Influenza Type B (PCR) 09/20/19 09/20/19 09/20/19 15:58 15:58 16:19 WBC RBC Hgb Hct MCV MCH MCHC RDW Std Deviation RDW Coeff of Michael Plt Count MPV Immature Gran % (Auto) Neut % (Auto) Lymph % (Auto) [place] % (Auto) Eos % (Auto) Baso % (Auto) Immature Gran # (Auto) Neut # (Auto) Lymph # (Auto) [place] # (Auto) Eos # (Auto) Baso # (Auto) PT INR APTT PTT Ratio VBG pH VBG pCO2 VBG pO2 VBG HCO3 VBG O2 Saturation VBG Base Excess Barometric Pressure Sodium Potassium Chloride Carbon Dioxide Anion Gap BUN Creatinine Est Cr Clr Drug Dosing Est GFR ( Amer) Est GFR (Non-Af Amer) BUN/Creatinine Ratio Glucose Lactate 1.4 Calcium Magnesium Total Bilirubin Direct Bilirubin AST ALT Alkaline Phosphatase Troponin I NT-Pro-B Natriuret Pep 624 Total Protein Albumin Globulin Albumin/Globulin Ratio Lipase TSH 3.270 Urine Color Urine Appearance Urine pH Ur Specific [place] Urine Protein Urine Glucose (UA) Urine Ketones Urine Blood Urine Nitrite Urine Bilirubin Urine Urobilinogen Ur Leukocyte Esterase Urine WBC (Auto) Urine RBC (Auto) U Hyaline Cast (Auto) U Epithel Cells (Auto) Urine Bacteria (Auto) Influenza Type A (PCR) Neg for Influ A Influenza Type B (PCR) Neg for Influ B 09/20/19 09/20/19 09/20/19 16:19 16:37 21:00 WBC RBC Hgb Hct MCV MCH MCHC RDW Std Deviation RDW Coeff of Michael Plt Count MPV Immature Gran % (Auto) Neut % (Auto) Lymph % (Auto) [place] % (Auto) Eos % (Auto) Baso % (Auto) Immature Gran # (Auto) Neut # (Auto) Lymph # (Auto) [place] # (Auto) Eos # (Auto) Baso # (Auto) PT INR APTT PTT Ratio VBG pH 7.50 H VBG pCO2 35 L VBG pO2 55 VBG HCO3 27 VBG O2 Saturation 89.2 VBG Base Excess 3.6 Barometric Pressure 735.7 Sodium Potassium Chloride Carbon Dioxide Anion Gap BUN Creatinine Est Cr Clr Drug Dosing Est GFR ( Amer) Est GFR (Non-Af Amer) BUN/Creatinine Ratio Glucose Lactate Calcium Magnesium Total Bilirubin Direct Bilirubin AST ALT Alkaline Phosphatase Troponin I NT-Pro-B Natriuret Pep Total Protein Albumin Globulin Albumin/Globulin Ratio Lipase TSH Urine Color Dark Yellow Dark Yellow Urine Appearance Turbid A Turbid A Urine pH 5.0 5.0 Ur Specific [place] 1.021 1.022 Urine Protein 1+ H 2+ H Urine Glucose (UA) Negative Negative Urine Ketones Trace H Negative Urine Blood 2+ H 3+ H Urine Nitrite Positive A Positive A Urine Bilirubin Negative Negative Urine Urobilinogen Negative Negative Ur Leukocyte Esterase 2+ H 2+ H Urine WBC (Auto) >30 H >30 H Urine RBC (Auto) 10-30 H 5-10 H U Hyaline Cast (Auto) 1-5 1-5 U Epithel Cells (Auto) >30 H >30 H Urine Bacteria (Auto) 4+ H 1+ H Influenza Type A (PCR) Influenza Type B (PCR) 09/21/19 09/21/19 05:26 05:26 WBC 7.85 RBC 4.21 Hgb 10.3 L Hct 34.3 L MCV 81.5 MCH 24.5 L MCHC 30.0 L RDW Std Deviation 52.0 H RDW Coeff of Michael 17.3 H Plt Count 131 MPV 10.9 H Immature Gran % (Auto) 0.3 Neut % (Auto) 85.0 Lymph % (Auto) 9.2 [place] % (Auto) 3.9 Eos % (Auto) 1.5 Baso % (Auto) 0.1 Immature Gran # (Auto) 0.02 Neut # (Auto) 6.67 H Lymph # (Auto) 0.72 L [place] # (Auto) 0.31 Eos # (Auto) 0.12 Baso # (Auto) 0.01 PT INR APTT PTT Ratio VBG pH VBG pCO2 VBG pO2 VBG HCO3 VBG O2 Saturation VBG Base Excess Barometric Pressure Sodium 138 Potassium 3.9 Chloride 105 Carbon Dioxide 29 Anion Gap 4.0 BUN 20 H Creatinine 1.11 Est Cr Clr Drug Dosing 44.6 Est GFR ( Amer) 54.7 Est GFR (Non-Af Amer) 47.2 BUN/Creatinine Ratio 18.4 Glucose 124 H Lactate Calcium 7.8 L Magnesium Total Bilirubin 0.8 Direct Bilirubin AST 22 ALT 16 Alkaline Phosphatase 76 Troponin I NT-Pro-B Natriuret Pep Total Protein 5.8 L Albumin 2.5 L Globulin 3.3 Albumin/Globulin Ratio 0.8 L Lipase TSH Urine Color Urine Appearance Urine pH Ur Specific [place] Urine Protein Urine Glucose (UA) Urine Ketones Urine Blood Urine Nitrite Urine Bilirubin Urine Urobilinogen Ur Leukocyte Esterase Urine WBC (Auto) Urine RBC (Auto) U Hyaline Cast (Auto) U Epithel Cells (Auto) Urine Bacteria (Auto) Influenza Type A (PCR) Influenza Type B (PCR) PG Care Time/CCT Total # of Minutes Spent Total Time Spent with Patient: Total time spent is greater than 50% in coordination of care (as documented) at patient's floor/unit and/or counseling patient:
[2019-09-21] MEDS ORDERED: fentaNYL citrate 100 MCG/2 ML VIAL ONE (09:28)
[2019-09-21] MEDS ORDERED: PROPOFOL IV EMULSION 10 MG/ML 20 ML VIAL IV ONE (09:28)
[2019-09-21] MEDS ORDERED: LIDOCAINE HCL 2% 2 ML VIAL/AMP(20MG/ML) INFIL ONE (09:28)
--- NOTE | 2019-09-21 09:28 | Anesthesiology Consultation ---
Date of Service September 21, 2019 Assessment & Plan (1) Encounter for pre-operative examination: Chart Review Chart Review: Acceptable Risk for Surgery History Surgery Operation Date: 09/21/19 09:30 Proposed Procedures p Cystoscopy - Renny Blanchard MD s Ureteral Stent Insertion/Removal - Renny Blanchard MD Height/Weight Height: 5 ft 3 in Weight: 93.4 kg Allergies Allergy/AdvReac Type Severity Reaction Status Date / Time No Known Allergies Allergy Verified 09/20/19 16:50 Medications Home Medications Medication Instructions Recorded Confirmed Last Taken cod liver oil 1 cap PO QAM 08/06/18 09/20/19 08/04/19 garlic 400 mg PO DAILY 08/06/18 09/20/19 08/04/19 Trelegy Ellipta 1 inh INHALATION HS 02/17/19 09/20/19 08/10/19 21:00 cyanocobalamin (vitamin B-12) 1,000 mcg PO QAM 02/17/19 09/20/19 08/04/19 [Vitamin B-12] ranitidine 150 mg tablet 150 mg PO HS #90 tab 07/04/19 09/20/19 08/10/19 21:00 ferrous sulfate 325 mg (65 mg 325 mg PO QAM tab 07/09/19 09/20/19 08/04/19 iron) tablet Centrum 1 tab PO QAM 07/25/19 09/20/19 08/04/19 cholecalciferol (vitamin D3) 2,000 unit PO QAM 07/25/19 09/20/19 08/04/19 [Vitamin D3] magnesium 250 mg PO QAM 07/25/19 09/20/19 08/04/19 vitamin E 400 unit PO QAM 07/25/19 09/20/19 08/04/19 gabapentin 300 mg capsule 300 mg PO QPM 08/14/19 09/20/19 Unknown pantoprazole 40 mg tablet,delayed 40 mg PO QAM #30 tab 09/17/19 09/20/19 Unknown release albuterol sulfate 2.5 mg INHALATION Q4 PRN 09/20/19 09/20/19 Unknown benzonatate [Tessalon Perles] 100 mg PO BID PRN 09/20/19 09/20/19 Unknown calcium carbonate-vitamin D3 1 cap PO DAILY 09/20/19 09/20/19 Unknown [Calcium 600 + D(3)] Active Medications Generic Name Dose Route Start Last Admin Trade Name Freq PRN Reason Stop Dose Admin Benzonatate 100 mg 09/20/19 18:47 09/20/19 21:18 Tessalon Perle PO 10/20/19 18:46 100 mg BID PRN Administration Cough Cyanocobalamin 1,000 mcg 09/21/19 09:00 09/21/19 08:46 Vitamin B-12 PO 10/21/19 08:59 1,000 mcg QAM MASOUD Administration Ferrous Sulfate 325 mg 09/21/19 09:00 09/21/19 08:46 Feosol PO 10/21/19 08:59 325 mg QAM MASOUD Administration Gabapentin 300 mg 09/20/19 21:00 09/20/19 20:12 Neurontin PO 10/20/19 20:59 300 mg QPM MASOUD Administration Sodium Chloride 1,000 mls @ 125 mls/hr 09/20/19 18:47 09/21/19 05:01 Nss 1000ml IV 10/20/19 18:46 125 mls/hr .Q8H MASOUD Administration Magnesium Oxide 400 mg 09/21/19 09:00 09/21/19 08:45 Mag-Ox PO 10/21/19 08:59 400 mg DAILY MASOUD Administration Miscellaneous 1 ea 09/21/19 00:00 09/21/19 00:13 Order Awaiting Action N/A 10/21/19 00:00 Not Given QS MASOUD Multivitamins/Minerals 1 tab 09/21/19 09:00 09/21/19 08:45 Caltrate Plus PO 10/21/19 08:59 1 tab DAILY MASOUD Administration Multivitamins/Minerals 1 tab 09/21/19 09:00 09/21/19 08:45 Multivitamin W/ Minerals Tab PO 10/21/19 08:59 1 tab QAM MASOUD Administration Oxycodone/Acetaminophen 1 tab 09/20/19 18:47 09/21/19 02:22 Percocet 5mg/325mg PO 10/04/19 18:46 1 tab Q4H PRN Administration Pain Ranitidine HCl 150 mg 09/20/19 21:00 09/20/19 20:12 Zantac PO 10/20/19 20:59 150 mg HS MASOUD Administration Vitamin D 2,000 units 09/21/19 09:00 09/21/19 08:45 Vitamin D3 PO 10/21/19 08:59 2,000 units DAILY MASOUD Administration Vitamin E 400 units 09/21/19 09:00 09/21/19 08:45 Vitamin E PO 10/21/19 08:59 400 units QAM MASOUD Administration Past Medical History Medical History Anemia S/p 1 unit PRBC 05/29/19 Asthma COPD (chronic obstructive pulmonary disease) On 2L [place] Chronic pain LEFT LEG GERD (gastroesophageal reflux disease) On home oxygen therapy 2 LITERS Umbilical hernia Past Family History Family History Daughter Family history of ovarian cancer Brother Non Hodgkin's lymphoma Other Breast cancer Diabetes Hypertension Leukemia Prostate cancer Past Surgical History Surgical History History of bunionectomy of both great toes History of carpal tunnel surgery of left wrist History of carpal tunnel surgery of right wrist History of cholecystectomy History of colonoscopy History of hernia surgery MULTIPLE Hx of tonsillectomy Hx of varicose vein ligation and stripping Social History Smoking Status: Never smoker Do You Dip or Chew Tobacco: No Hx Alcohol Use: No Hx Substance Use: No substance use type: does not use Physical Exam Vital Signs Last Vital Signs Temp 36.7 C 09/21/19 06:24 Pulse 97 H 09/21/19 06:24 Resp 20 09/21/19 06:24 BP 156/97 H 09/21/19 03:54 Pulse Ox 94 09/21/19 06:24 Testing Laboratory Results 09/21/19 05:26 09/21/19 05:26 PT 10.5 Seconds (9.0-12.0) 09/20/19 15:58 INR 1.0 (0.9-1.1) 09/20/19 15:58 APTT 21.7 Seconds (21.0-31.0) 09/20/19 15:58 Urine Color Dark Yellow 09/20/19 21:00 Urine Appearance Turbid (Clear) A 09/20/19 21:00 Urine pH 5.0 (4.5-7.5) 09/20/19 21:00 Ur Specific [place] 1.022 (1.000-1.030) 09/20/19 21:00 Urine Protein 2+ (Negative) H 09/20/19 21:00 Urine Glucose (UA) Negative (Negative) 09/20/19 21:00 Urine Ketones Negative (Negative) 09/20/19 21:00 Urine Nitrite Positive (Negative) A 09/20/19 21:00 Ur Leukocyte Esterase 2+ (Negative) H 09/20/19 21:00 Urine WBC (Auto) >30 /hpf (0-5) H 09/20/19 21:00 Urine RBC (Auto) 5-10 /hpf (0-4) H 09/20/19 21:00 U Hyaline Cast (Auto) 1-5 /lpf (0-5) 09/20/19 21:00 U Epithel Cells (Auto) >30 /lpf (0-5) H 09/20/19 21:00 Urine Bacteria (Auto) 1+ (Negative) H 09/20/19 21:00 09/20/19 16:37 Urine Culture - Preliminary Urine,Clean Catch Gram negative bacilli Electrocardiogram Date: 09/21/19 Findings: + NSR @ (88) and + ND (?possible inferior and septal infarct) Echocardiogram Date: 07/24/19 EF: 60-65% LV Function: normal Other Findings: + diastolic dysfunction Valvular Disease: + no significant valvular disease
[2019-09-21] MEDS ORDERED: ONDANSETRON INJ 2 MG/ML 2 ML VIAL IV PRN (09:32)
[2019-09-21] MEDS ORDERED: fentaNYL citrate 100 MCG/2 ML VIAL IV PRN (09:32)
[2019-09-21] MEDS ORDERED: ATROPINE SULFATE 0.1 MG/ML 10ML SYR IV PRN (09:32)
[2019-09-21] MEDS ORDERED: IOTHALAMATE MEGLUMINE II 17.2% 250 ML VIAL ONE (09:50)
--- NOTE | 2019-09-21 10:25 | Operative Report ---
PG Post Operative Report Pre & Post Diagnosis Operation Date: 09/21/19 09:30 Pre-Op Diagnosis: Right distal ureteral stone and urinary tract infection Post-Op Diagnosis: Right distal ureteral stone and urinary tract infection Anesthesia: Monitored anesthesia care with sedation. Specimen sent pathology: Urine for culture and sensitivity after right renal drainage. Drains left in place: Right-sided 6 [place] multilength ureteral stent. Findings: Redundant loops both within the bladder and the kidney, good stent position with some bladder floor relaxation. I identified the patient and participated in the time-out.: Yes Procedure Operation Date: 09/21/19 09:30 Actual Procedures p Cystoscopy, Right Retrograde pyelography - Renny Blanchard MD s Ureteral Stent Insertion(Right) - Renny Blanchard MD Brief history: Patient is a 78-year-old female with a positive urine culture and right distal ureteral stone being brought to the operating room for urgent right ureteral stent placement. Please see urology consultation for further details. Intravenous ciprofloxacin is provided in addition to her floor antibiotics. SCDs used for DVT prophylaxis. Procedure: Patient was properly identified and brought into the operative suite after identification of appropriate consent in the chart. Monitored anesthesia care with sedation was initiated and patient was prepped and draped in the standard fashion for this procedure. Full timeout procedure was followed. 22 [place] rigid cystoscope was introduced into the bladder under direct visualization and bladder was surveyed in its entirety. This demonstrated mild irritation of the bladder mucosa with some mobile debris in the bladder. No tumors or mucosal abnormalities were noted. No stones were present within the bladder. Right-sided ureteral orifice was addressed and noted to be mounded. 5 [place] open-ended catheter was used to perform retrograde pyelography demonstrating moderate to severe proximal hydroureteronephrosis with a filling defect at the ureterovesical junction. Tortuosity of the proximal ureter requiring straightening with a sensor tip wire was appreciated. Was able to be advanced up to the level of a dilated right renal pelvis and calyceal system. This was followed by a 6 [place] multilength ureteral stent with redundant coils both in the upper pole of the kidney and within the bladder. Mildly cloudy drainage of urine was appreciated and urine sample was taken at this stage to be sent for culture after drainage of the right kidney. Bladder was drained and cystoscope was removed. Anesthesia was reversed and patient was transferred to the recovery room in stable condition. Follow-up CARE: Patient will return to the floor for further management per the primary service. Outpatient stone management will be planned after her infection is treated. Surgeon Renny Blanchard MD [employer]ner None Estimated Blood Loss 0 Findings Consistent with Post-Op Diagnosis Specimens Bladder urine for culture and sensitivity after drainage of right kidney. Description of Procedure Cystoscopy, right retrograde pyelography, right ureteral stent placement. I attest to the content of the Intraoperative Record and any orders documented therein. Any exceptions are noted below.
--- NOTE | 2019-09-21 10:38 | Fluoroscopy Report ---
FL retrograde includes kub CLINICAL HISTORY: CYSTO STENT PLACMENTnephrocalcinosis COMPARISON STUDY: CT 09/20/2019 FLUOROSCOPY TIME: 1 minute 2 seconds NUMBER OF FLUOROSCOPIC IMAGES: 5 FINDINGS: Findings consistent with right retrograde evaluation followed by laser lithotripsy and righ t ureteral stent placement IMPRESSION: Laser lithotripsy and right ureteral stent placement The above report was generated using voice recognition software. It may contain grammatical, syntax or spelling errors. Electronically signed by: Arturo Lynch M.D. 09/21/2019 10:36 AM
--- NOTE | 2019-09-21 10:48 | Anesthesiology Progress Note ---
Date of Service September 21, 2019 Anesthesia Post Procedure Vital Signs Vital Signs: Temp Pulse Pulse Pulse Resp BP BP 09/21/19 10:45 36.9 C 93 H 21 131/67 09/21/19 10:35 94 H 18 139/70 09/21/19 10:29 37.0 C 97 H 16 128/77 09/21/19 06:24 36.7 C 97 H 20 09/21/19 03:54 36.8 C 98 H 19 156/97 H 09/20/19 23:38 36.7 C 94 H 17 123/80 09/20/19 19:00 36.8 C 91 H 16 130/75 09/20/19 17:20 37.4 C 111 H 20 151/92 H 09/20/19 15:29 37.6 C H 111 H 28 H 153/75 H Pulse Ox Pulse Ox 09/21/19 10:45 95 09/21/19 10:35 96 09/21/19 10:29 97 09/21/19 06:24 94 09/21/19 03:54 91 09/20/19 23:38 91 09/20/19 19:00 100 100 09/20/19 17:20 94 09/20/19 15:29 93 Pain Intensity Back: Pain Intensity: 3 Transfer of Care Handoff Completed per policy Notes Mental Status: alert / awake / arousable Patient Amnestic to Procedure: Yes Nausea / Vomiting: adequately controlled Pain: adequately controlled Airway Patency, RR, SpO2: stable & adequate BP & HR: stable & adequate Hydration State: stable & adequate Anesthetic Complications: no major complications apparent
[2019-09-21] MEDS ORDERED: PHENAZOPYRIDINE HCL 100 MG TAB PO PRN (11:20)
--- NOTE | 2019-09-21 12:06 | Hospitalist Progress Note ---
Date of Service September 21, 2019 Assessment & Plan (1) Ureterolithiasis: Patient presented with right flank pain, nausea and vomiting, and subjective fevers at home Had a leukocytosis of 12 on admission which is now improved after receiving antibiotics With UTI present Consulted urology who took her for a right ureteral stent placement on 09/21 -Appreciate urology management -Will need definitive stone management after treatment for complex UTI as below -Pain control as needed with acetaminophen, Toradol, Percocet, Pyridium -Continue IV fluids given recent nausea and vomiting until taking p.o. well (2) Acute UTI: With abnormal UA and urine culture already growing gram-negative rods -She did have dysuria complaints prior to admission -Continue on IV ceftriaxone 2000 mg every 24 hours -Follow-up urine culture final ID and sensitivity -Will need 2 weeks total of antibiotics after discharge for complex UTI especially with kidney stone and ureteral stent in place (3) Sepsis: Presented with tachycardia, leukocytosis, tachypnea, and UTI as a source of infection Lactate was normal and blood pressures remained normal-not severe sepsis -Received IV fluids, antibiotics No blood cultures were drawn prior to being given antibiotics -Improving (4) Mild persistent asthma: Stable -Continue home albuterol, Trelegy Ellipta 1 inhalation at bedtime (5) COPD, moderate: Continue home medicine as above (6) Peripheral neuropathy: Continue gabapentin 300 mg capsule p.o. every afternoon (7) Anemia: Ongoing issue recently but is actually improved from previous with hemoglobin of 10.3 here She had recent EGD and colonoscopy without source of bleeding found Her MCV is severely low at 81 although this is improved from previous -Given that this is improving, PCP is monitoring for now but could consider capsule endoscopy if worsens again in the future -Continue ferrous sulfate once daily (8) Hiatal hernia: Large, seen on CT scan, chest x-ray -Continue antacids from home (9) GERD (gastroesophageal reflux disease): -Continue PPI and ranitidine Had recent EGD 07/2019 that showed gastric polyps but no gastritis or esophagitis -She apparently has declined to decrease her dose of PPI as per outpatient notes (10) DVT prophylaxis: SCDs, YEIMI hose Avoid chemical anticoagulant in the setting of iron deficiency anemia Disposition-remain overnight at least until urine culture has resulted, hopeful that she can be discharged home on oral antibiotic course in the next 1 to 2 days Subjective Patient was seen after she returned from ureteral stent placement. She reports feeling much improved-no further right flank pain or abdominal pain. She is feeling ready to eat. Denies chest pain or shortness of breath, no other concerns. Not lightheaded, no headache. I discussed her case with the urologist this morning. Review of Systems Review of Systems: All systems reviewed & are unremarkable except as noted in HPI & below Physical Exam Constitutional: WD/WN, vitals as above Eyes: PERRL, conjunctivae normal, anicteric sclerae ENMT: external ear and nose normal, oropharynx normal Neck: trachea midline, no thyromegaly Respiratory: normal respiratory effort, lungs clear to auscultation Cardiovascular: RRR, no murmur, no edema Gastrointestinal (Abdomen): normal bowel sounds, soft, nontender, no hepatosplenomegaly Musculoskeletal: Extremities: extremities normal to inspection; no cyanosis and no clubbing Skin: no rashes, warm and dry Neurologic: moves all extremities and awake; no focal motor deficits Psychiatric: A+Ox3, euthymic affect Results & Data Vital Signs (Past 12 Hours) Vital Signs Temp Pulse Pulse Resp BP Pulse Ox 09/21/19 11:05 91 H 19 107/71 94 09/21/19 10:55 90 20 131/72 95 09/21/19 10:45 36.9 C 93 H 21 131/67 95 09/21/19 10:35 94 H 18 139/70 96 09/21/19 10:29 37.0 C 97 H 16 128/77 97 09/21/19 06:24 36.7 C 97 H 20 94 09/21/19 03:54 36.8 C 98 H 19 156/97 H 91 Laboratory Results 09/21/19 09/21/19 09/20/19 Range/Units 05:26 05:26 21:00 WBC 7.85 (4.8-10.8) K/uL RBC 4.21 (4.2-5.4) M/uL Hgb 10.3 L (12.0-16.0) g/dL Hct 34.3 L (37-47) % MCV 81.5 (80-100) fL MCH 24.5 L (25-34) pg MCHC 30.0 L (32-36) g/dL RDW Std Deviation 52.0 H (36.4-46.3) fL RDW Coeff of Michael 17.3 H (11.5-14.5) % Plt Count 131 (130-400) K/uL MPV 10.9 H (7.4-10.4) fL Immature Gran % (Auto) 0.3 % Neut % (Auto) 85.0 % Lymph % (Auto) 9.2 % Jones % (Auto) 3.9 % Eos % (Auto) 1.5 % Baso % (Auto) 0.1 % Immature Gran # (Auto) 0.02 (0.00-0.02) K/uL Neut # (Auto) 6.67 H (1.4-6.5) K/uL Lymph # (Auto) 0.72 L (1.2-3.4) K/uL Jones # (Auto) 0.31 (0.11-0.59) K/uL Eos # (Auto) 0.12 (0-0.5) K/uL Baso # (Auto) 0.01 (0-0.2) K/uL Sodium 138 (136-145) mmol/L Potassium 3.9 (3.5-5.1) mmol/L Chloride 105 (98-107) mmol/L Carbon Dioxide 29 (21-32) mmol/L Anion Gap 4.0 (3-11) BUN 20 H (7-18) mg/dl Creatinine 1.11 (0.6-1.2) mg/dl Est Cr Clr Drug Dosing 44.6 ml/min Est GFR ( Amer) 54.7 Est GFR (Non-Af Amer) 47.2 BUN/Creatinine Ratio 18.4 (10-20) Glucose 124 H (70-99) mg/dl Calcium 7.8 L (8.5-10.1) mg/dl Total Bilirubin 0.8 (0.2-1) mg/dl AST 22 (15-37) U/L ALT 16 (12-78) U/L Alkaline Phosphatase 76 (45-117) U/L NT-Pro-B Natriuret Pep (0-1800) pg/ml Total Protein 5.8 L (6.4-8.2) gm/dl Albumin 2.5 L (3.4-5.0) gm/dl Globulin 3.3 (2.5-4.0) gm/dl Albumin/Globulin Ratio 0.8 L (0.9-2) TSH (0.300-4.500) uIu/ml Urine Color Dark Yellow Urine Appearance Turbid A (Clear) Urine pH 5.0 (4.5-7.5) Ur Specific [place] 1.022 (1.000-1.030) Urine Protein 2+ H (Negative) Urine Glucose (UA) Negative (Negative) Urine Ketones Negative (Negative) Urine Blood 3+ H (Negative) Urine Nitrite Positive A (Negative) Urine Bilirubin Negative (Negative) Urine Urobilinogen Negative (Negative) Ur Leukocyte Esterase 2+ H (Negative) Urine WBC (Auto) >30 H (0-5) /hpf Urine RBC (Auto) 5-10 H (0-4) /hpf U Hyaline Cast (Auto) 1-5 (0-5) /lpf U Epithel Cells (Auto) >30 H (0-5) /lpf Urine Bacteria (Auto) 1+ H (Negative) 09/20/19 Range/Units 15:58 WBC (4.8-10.8) K/uL RBC (4.2-5.4) M/uL Hgb (12.0-16.0) g/dL Hct (37-47) % MCV (80-100) fL MCH (25-34) pg MCHC (32-36) g/dL RDW Std Deviation (36.4-46.3) fL RDW Coeff of Michael (11.5-14.5) % Plt Count (130-400) K/uL MPV (7.4-10.4) fL Immature Gran % (Auto) % Neut % (Auto) % Lymph % (Auto) % Jones % (Auto) % Eos % (Auto) % Baso % (Auto) % Immature Gran # (Auto) (0.00-0.02) K/uL Neut # (Auto) (1.4-6.5) K/uL Lymph # (Auto) (1.2-3.4) K/uL Jones # (Auto) (0.11-0.59) K/uL Eos # (Auto) (0-0.5) K/uL Baso # (Auto) (0-0.2) K/uL Sodium (136-145) mmol/L Potassium (3.5-5.1) mmol/L Chloride (98-107) mmol/L Carbon Dioxide (21-32) mmol/L Anion Gap (3-11) BUN (7-18) mg/dl Creatinine (0.6-1.2) mg/dl Est Cr Clr Drug Dosing ml/min Est GFR ( Amer) Est GFR (Non-Af Amer) BUN/Creatinine Ratio (10-20) Glucose (70-99) mg/dl Calcium (8.5-10.1) mg/dl Total Bilirubin (0.2-1) mg/dl AST (15-37) U/L ALT (12-78) U/L Alkaline Phosphatase (45-117) U/L NT-Pro-B Natriuret Pep 624 (0-1800) pg/ml Total Protein (6.4-8.2) gm/dl Albumin (3.4-5.0) gm/dl Globulin (2.5-4.0) gm/dl Albumin/Globulin Ratio (0.9-2) TSH 3.270 (0.300-4.500) uIu/ml Urine Color Urine Appearance (Clear) Urine pH (4.5-7.5) Ur Specific [place] (1.000-1.030) Urine Protein (Negative) Urine Glucose (UA) (Negative) Urine Ketones (Negative) Urine Blood (Negative) Urine Nitrite (Negative) Urine Bilirubin (Negative) Urine Urobilinogen (Negative) Ur Leukocyte Esterase (Negative) Urine WBC (Auto) (0-5) /hpf Urine RBC (Auto) (0-4) /hpf U Hyaline Cast (Auto) (0-5) /lpf U Epithel Cells (Auto) (0-5) /lpf Urine Bacteria (Auto) (Negative) PG Care Time/CCT Total # of Minutes Spent Total Time Spent with Patient: Total time spent is greater than 50% in coordination of care (as documented) at patient's floor/unit and/or counseling patient: (1) Anemia Anemia type: unspecified type Qualified Code(s): D64.9 - Anemia, unspecified
[2019-09-21] MEDS: ALBUTEROL 0.083% NEBU SOLN 3 ML VIAL INH PRN (14:48)
[2019-09-21] MEDS ORDERED: cefTRIAXone SODIUM 2,000 MG in DEXTROSE 5% 50 ML IV SCH (18:00)
[2019-09-21] MEDS: GABAPENTIN 300 MG CAP PO SCH (20:54)
[2019-09-21] MEDS: BENZONATATE 100 MG CAPSULE PO PRN (21:11)
[2019-09-22] MEDS: SODIUM CHLORIDE 0.9% 1000ML 1,000 ML IV SCH ×2 (02:44→11:17)
[2019-09-22 07:05] LABS: Mean Corpuscular Hgb Conc 29.7 g/dL (32-36)
[2019-09-22 07:13] LABS: Hematocrit (blood only) 34.4 % (37-47); Hemoglobin 10.2 g/dL (12.0-16.0); Mean Corpuscular Hemoglobin 24.6 pg (25-34); Mean Corpuscular Volume 82.9 fL (80-100); RDW Coefficient of Variation 17.4 % (11.5-14.5); RDW Standard Deviation 52.9 fL (36.4-46.3); Red Blood Count 4.15 M/uL (4.2-5.4); White Blood Count 8.81 K/uL (4.8-10.8)
[2019-09-22 07:30] LABS: BUN Creatinine Ratio 15.6 (10-20); Calcium 8.2 mg/dl (8.5-10.1); Creatinine Clr Calc Pharmacy 56.5 ml/min; Est GFR (African American) 72.4; Est GFR (Non-African American) 62.5; Potassium 3.8 mmol/L (3.5-5.1)
[2019-09-22 07:32] LABS: Platelet Count 140 K/uL (130-400)
[2019-09-22 07:35] LABS: Basophils # (auto) 0.02 K/uL (0-0.2); Basophils % (auto) 0.2 %; Eosinophils # (auto) 0.26 K/uL (0-0.5); Immature Granulocytes # (auto) 0.04 K/uL (0.00-0.02); Immature Granulocytes % (auto) 0.5 %; Lymphocytes # (auto) 1.51 K/uL (1.2-3.4); Lymphocytes % (auto) 17.1 %; Monocytes # (auto) 1.04 K/uL (0.11-0.59); Monocytes % (auto) 11.8 %; Neutrophils # (auto) 5.94 K/uL (1.4-6.5); Neutrophils % (auto) 67.4 %
--- NOTE | 2019-09-22 08:06 | Anesthesiology Progress Note ---
Date of Service September 22, 2019 Anesthesia Post Procedure Vital Signs Vital Signs: Temp Pulse Pulse Pulse Resp BP Pulse Ox 09/22/19 07:47 36.5 C 90 12 123/83 96 09/22/19 07:35 36.7 C 84 18 134/82 96 09/22/19 03:30 36.6 C 84 19 112/71 98 09/22/19 00:07 88 09/21/19 23:19 36.5 C 98 H 19 127/72 91 09/21/19 19:09 37.2 C 95 H 20 124/81 93 09/21/19 16:00 87 09/21/19 15:28 37.1 C 89 16 124/76 97 09/21/19 14:52 94 H 18 94 09/21/19 11:05 91 H 19 107/71 94 09/21/19 10:55 90 20 131/72 95 09/21/19 10:45 36.9 C 93 H 21 131/67 95 09/21/19 10:35 94 H 18 139/70 96 09/21/19 10:29 37.0 C 97 H 16 128/77 97 Pain Intensity Back: Pain Intensity: 3 Notes Mental Status: alert / awake / arousable and participated in evaluation Nausea / Vomiting: adequately controlled Pain: adequately controlled Airway Patency, RR, SpO2: stable & adequate BP & HR: stable & adequate Hydration State: stable & adequate
[2019-09-22] MEDS ORDERED: PANTOprazole 40 MG TAB PO SCH (09:00)
[2019-09-22] MEDS ORDERED: cephALEXin 500 MG CAP PO SCH (09:00)
[2019-09-22] MEDS ORDERED: POLYETHYLENE (MIRALAX) 17 GM PACK PO PRN (09:26)
[2019-09-22] MEDS ORDERED: BISACODYL 5 MG TABEC PO PRN (09:26)
[2019-09-22] MEDS ORDERED: DOCUSATE SODIUM 100 MG CAP PO SCH (09:30)
[2019-09-22] MEDS: CALCIUM 600MG + VIT D 400 IU TAB PO SCH (10:04)
[2019-09-22] MEDS: FERROUS SULFATE 325 MG TAB PO SCH (10:06)
[2019-09-22] MEDS: MAGNESIUM OXIDE 400 MG TAB PO SCH (10:07)
[2019-09-22] MEDS: CEROVITE ADV FORMULA TAB PO SCH (10:08)
[2019-09-22] MEDS: TOCOPHERYL, DL-ALPHA 400 UNITS CAP PO SCH (10:10)
[2019-09-22] MEDS: CYANOCOBALAMIN 500 MCG TABLET (VITAMIN B-12) PO SCH (10:11)
[2019-09-22] MEDS: CHOLECALCIFEROL 1,000 UNITS TAB PO SCH (10:12)
[2019-09-22] MEDS: OXYCODONE/ACETAMINOPHEN 5mg/325mg TAB PO PRN (10:18)
[2019-09-22] MEDS: ALBUTEROL 0.083% NEBU SOLN 3 ML VIAL INH PRN (10:28)
--- NOTE | 2019-09-22 11:40 | Urology Progress Note ---
Date of Service September 22, 2019 Assessment & Plan (1) Sepsis: POD #1 s/p right ureteral stent placement. Clinically improving, appears to be tolerating her stent with minor discomfort. Convert to PO antibiotics per sensitivities for a total of 14 days of therapy. Recommend patient discharged with supportive stent medication including Pyridium TID and Tamsulosin QHS. Outpatient URO follow up has been arranged. Thank you for allowing us to participate in the inpatient care of Ms. Whyte. Bhavani kim contact our service with further questions or concerns. (2) Ureterolithiasis: (3) Acute UTI: Subjective 78 YO female with UTI and obstructing right ureteral stone, POD #1 s/p right ureteral stent insertion. Patient reports feeling okay this AM, family at bedside. Is having some mild dysuria and generalized abdominal pain, c/w stent irritatio n. Emptying bladder without difficulty. No fevers/chills. No nausea/vomiting. Review of Systems Review of Systems: Per HPI. Physical Exam Physical Exam: NAD. +Hard of hearing. Resp effort normal. No JVD. Abd nondistended. A&Ox3, appropriate affect. Results & Data Vital Signs (Past 12 Hours) Vital Signs Temp Pulse Pulse Resp BP Pulse Ox 09/22/19 10:30 91 H 18 96 09/22/19 07:47 36.5 C 90 12 123/83 96 09/22/19 07:35 36.7 C 84 18 134/82 96 09/22/19 03:30 36.6 C 84 19 112/71 98 09/22/19 00:07 88 PG Care Time/CCT Total # of Minutes Spent Total Time Spent with Patient: Total time spent is greater than 50% in coordination of care (as documented) at patient's floor/unit and/or counseling patient:
[2019-09-22 15:15] VITALS: BP 119/73; PULSE 89; TEMP 97.9
[2019-09-22 15:45] VITALS: O2SAT 90
--- NOTE | 2019-09-22 17:26 | Discharge Summary ---
Date of Service September 22, 2019 Admission HPI Per Admitting Provider Patient is a 78 years old female with past medical history of COPD on 2 L oxygen at night, anemia, dyslipidemia, peripheral neuropathy who presents with complaint of right flank pain that has been ongoing for 2 days but worsening this morning. Patient did not try anything to improve her pain. Patient also reports that she had burning sensation when she urination 2 days ago. Patient denies fever chills chills, headache, chest pain, shortness of breath, hematuria, melena, hematochezia. Labs are reviewed: WBC 12.05, hemoglobin 11.3, hematocrit 37.2, platelets 154, PT 10.5, INR 1, APTT 21.7, sodium 134, potassium 4, chloride 101, BUN 23, creatinine 1.12, GFR 46.7, lactate 1.4, magnesium 2.4, AST 25, ALT 22, troponin 0 0.015, Albumin 3.1, lipase 46. Urine: Turbid, positive nitrates, leukocyte esterase 2+, WBCs over 30, RBCs 10-30 4+ bacteria. We will repeat urine analysis since catch does not appear to be clean. CT abdomen pelvis shows a 5 mm x 3 mm distal right ureteral calculus located just proximal to the urethrovesical junction that results in mild right hydronephrosis with kevin-nephritic infiltration. Decision was made to admit patient to PCU telemetry for nephrolithiasis and and further management and treatment. Principal Diagnosis Nephrolithiasis S/P Stent Discharge Exam Constitutional well developed and well nourished; no acute distress ENMT Ears: no hearing impairment Neck trachea midline Respiratory normal respiratory effort, lungs clear to auscultation Cardiovascular RRR, no murmur, no edema Gastrointestinal (Abdomen) Inspection/Auscultation: normal bowel sounds Percussion/Palpation: abdomen soft; abdomen nontender Musculoskeletal Head/Neck/Chest: normocephalic and head atraumatic Skin no rashes, warm and dry Neurologic moves all extremities Psychiatric A+Ox3, euthymic affect Discharge Data Allergies Allergy/AdvReac Type Severity Reaction Status Date / Time No Known Allergies Allergy Verified 09/20/19 16:50 Consultations 09/20/19 17:14 ED Decision to Admit Stat 09/21/19 08:54 Consult Urology Stat Procedures Performed Operation Date: 09/21/19 09:30 Actual Procedures s Cystoscopy, Right Retrograde pyelography(Right) - Renny Blanchard MD p Ureteral Stent Insertion(Right) - Renny Blanchard MD Ordered Studies 09/20/19 15:43 CT abd pelvis wo con Stat 09/21/19 09:00 FL retrograde includes kub Routine Hospital Course (1) Ureterolithiasis: - Presented with R flank pain, N/V, and subjective fevers - mild leukocytosis with improved with Abx treatment; remains afebrile - S/P stent placement on 09/21 with F/U scheduled as outpatient for removal - only having mild intermittent discomfort - Will continue Pyridium, Percocet PRN, and added Flomax HS until F/U - Tolerated diet today without nausea/vomiting but states the food is just not appetizing for her and doesn't taste good to her; Also given stool softener and Miralax - Encouraged ambulation and continued use of bowel regimen to help promote a regular bowel movement to help prevent irritation with stent (2) Acute UTI: - U/A with Klebsiella and will convert Rocephin to Keflex 500 mg BID until 10/03 to complete a 14 day course for complex UTI - Repeat UA from procedure with pinpoint growth and will monitor for any findings that contradict initial UA (3) Sepsis: - By SIRS criteria - Presented with tachycardia, leukocytosis, tachypnea, and UTI as source; normal lactic and normal BP - Initial symptoms resolved (4) Mild persistent asthma: - Stable - no exacerbation at this time - Continue Albuterol, Trelegy (5) COPD, moderate: - Medications as above; utilizes O2 HS (6) Peripheral neuropathy: - STABLE - Gabapentin 300 mg daily (7) Anemia: - Ongoing monitoring - Hgb has been stable - Recent EGD/Colonoscopy without source of bleeding - could consider capsule endoscopy if worsening anemia - Continue ferrous sulfate daily (8) Hiatal hernia: - Large - STABLE - Continue antacids (9) GERD (gastroesophageal reflux disease): - Continue Protonix 40 mg daily and Ranitidine 150 HS - EGD (Jul 2019) - gastric polyps but no gastritis or esophagitis - per notes has declined to decrease current dosing (10) DVT prophylaxis: Disposition: - F/U with Urology as outpatient for definitive stent/stone management; will establish F/U with PCP Total Time Total Time Spent Total Time Spent (In Minutes): Greater than 30 minutes Discharge Plan Discharge Items Patient Disposition: Home - Self-Care Reason For Visit: NEPHROLITIASIS Discharge Diagnosis: Kidney Stone with Stent Placed Activity: Resume your previous activity Non-emergency contact: Primary Care Provider and Urologist Call non-emergency contact if: you have any medication questions, your symptoms worsen and you have a fever Follow-up/Referrals: Renny Blanchard MD [Physician] - (Please, follow up at [facility]. *A nurse from this office will call you with the appointment information. The office is located at [address] [place] [address] in [place]. If you need to change this appointment, call the office at [phone].) Jessica Baum MD [Primary Care Provider] - 09/30/19 12:30 pm (Please, follow up at Dr. Mccurdy's office with her associate, Merna Pino PA-C, on SundaySeptember 30 at 12:30 pm. *If you need to change this appointment, call the office at [phone].) Diet: Heart Healthy Addtl Attending Provider Instructions: Kidney Stone: - You were admitted for right sided pain with a stone and a urinary tract infec tion. You had a stent placed on 09/21 and this will be in place for a couple weeks and will follow up with [facility] - Dr. Blanchard to have the stone and stent taken care of. - You will need to continue antibiotics until October 03 to make sure the infection is completely treated. We will also give you medication called Flomax which helps relax the ureter (tube that carries urine) to make urination easier while that stone and stent are placed. We will also give you Pyridium to help with urinary symptoms. Be mindful this medication can cause your urine to be orange and can even cause your tears to turn orange. - Your antibiotic will be Cephalexin 500 mg twice a day - this is to treat the organism Klebsiella that grew on your culture. Another culture was taken during your procedure that so far is not growing anything but will call you if anything new shows up on this. - You will also have a prescription for pain medication if needed. This medication can cause you to be drowsy. - It is important with pain medication that you prevent constipation. Recommend to walk to help keep the bowels regular. Can also use over the counter docusate sodium (Colace) or Miralax to help move your bowels. Pending Studies at Discharge: No Stand-Alone Forms: My [facility], Smoking Cessation Medications and DC Order Prescriptions: New cephalexin 500 mg Capsule 500 mg PO BID Qty: 23 RF: 0 oxycodone-acetaminophen [Percocet] 5-325 mg Tablet 1 tab PO Q4H PRN (Reason: pain) 3 Days Qty: 10 RF: 0 phenazopyridine [Pyridium] 100 mg Tablet 100 mg PO TID PRN (Reason: urinary symptoms) 7 Days Qty: 21 RF: 0 tamsulosin 0.4 mg capsule 0.4 mg PO HS 14 Days Qty: 14 RF: 0 Continued ranitidine HCl [Zantac] 150 mg tablet 150 mg PO HS Qty: 90 RF: 3 pantoprazole 40 mg tablet,delayed release (DR/EC) 40 mg PO QAM Qty: 30 RF: 5 ferrous sulfate [FerrouSul] 325 mg (65 mg iron) tablet 325 mg PO QAM RF: 0 Trelegy Ellipta 100-62.5-25 mcg Blister With Device 1 inh INHALATION HS RF: 0 cyanocobalamin (vitamin B-12) [Vitamin B-12] 1,000 mcg Tablet 1,000 mcg PO QAM RF: 0 magnesium 250 mg Tablet 250 mg PO QAM RF: 0 vitamin E 400 unit Capsule 400 unit PO QAM RF: 0 cholecalciferol (vitamin D3) [Vitamin D3] 2,000 unit Tablet 2,000 unit PO QAM RF: 0 Centrum 18-400 mg-mcg Tablet 1 tab PO QAM RF: 0 cod liver oil Capsule 1 cap PO QAM RF: 0 garlic 400 mg Tablet 400 mg PO DAILY RF: 0 gabapentin [Neurontin] 300 mg capsule 300 mg PO QPM RF: 0 Calcium 600 + D(3) 600 mg calcium- 200 unit Capsule 1 cap PO DAILY RF: 0 benzonatate [Tessalon Perles] 100 mg capsule 100 mg PO BID PRN (Reason: Cough) RF: 0 albuterol sulfate 2.5 mg /3 mL (0.083 %) solution for nebulization 2.5 mg inhalation Q4 PRN (Reason: Shortness Of Breath Or Wheezing) RF: 0 Discharge Orders: Discharge Order (Routine); Ordered 09/22/19 Ordered By: Veronica Ruiz Admission Data Admit Date/Time: 09/20/19 17:40 Attending Provider: Grey Lopez Admit Provider: Jayne Kowalski Primary Care Provider: Jessica Baum V. Other Providers: Jayne Kowalski ; Renny Blanchard I. Other Interventions: Discharge Summary Assessment (RN) Last Done: 09/22/19 15:31 DC Date/Time DO NOT enter until pt leaves facility: 09/22/19 18:04 Supervising Physician Co-Signing Physician Notes Attending note: patient seen and examined with Veronica Ruiz PA-C. I agree with her discharge summary. I personally reviewed the labs and imaging findings. patient feeling well after stent placement, no pain d/c home on 2 week course of antibiotics will follow up with urology for definitive stone management, eventual stent removal Exam: WD WN female, no distress, lungs CTA bilaterally, normal effort, heart regular S1 S2 no murmurs abdomen soft NT, ND, +BS, no CVA tenderness all questions answered for patient and her significant other see d/c summary for full details
== END 2019-09-22 18:04 | disposition home or self-care (01) | DRG 854 ==
LOC: ED 15:23 → SUATTDRO 17:40 → 2S 17:40 → 2W 09-21 10:25

== ENCOUNTER 2025-02-26 08:05 | Inpatient (IN) ==
--- NOTE | 2025-02-24 14:28 | Anesthesiology Consultation ---
Date of Service February 24, 2025 Assessment & Plan (1) Encounter for pre-operative examination: - Infectious disease screening: Per assessment on 02/23/25- No known recent infectious disease contacts or current infectious disease symptoms. - S/P EGD/colonoscopy (12/17/24): MAC at [facility]. No issues noted per post-op anesthesia progress note. - Pulmonary visit (01/28/25): "Patient has been complaining of abdominal pain where she has hernia whenever she coughs.. She was asking if I can refer her to surgeon. I suggested her to get in touch with the primary doctor to see if they know a surgeon who can take care of it.. There is no absolute contraindication for patient to undergo abdominal surgery.. Patient will fall into at least moderate risk given the COPD.. Recommend 6-8 mL/kg of tidal volume in the OR and CPAP/BiPAP in the PACU" - Patient acceptable risk for given surgery pending evaluation DOS. Chart Review Chart Review: Patient NOT seen in Pre Admission Testing History Surgery Operation Date: 02/26/25 10:45 Proposed Procedures p Laparoscopic Recurrent Incisional Hernia Repair with Mesh - Rios Pichardo, Height/Weight Height: 4 ft 11 in Weight: 72.575 kg Allergies Allergy/AdvReac Type Severity Reaction Status Date / Time levofloxacin Allergy Intermediate Diarrhea Verified 02/23/25 13:25 Medications Home Medications Medication Instructions Recorded Confirmed Last Taken cyanocobalamin (vitamin B-12) 1,000 mcg PO QAM 02/17/19 02/23/25 12/16/24 1,000 mcg tablet (Vitamin B-12) multivitamin-ferrous 1 tab PO QAM 07/25/19 02/23/25 12/16/24 fumarate-folic acid 18 mg-400 mcg tablet (Centrum) vit C 250 mg-vit E 90 mg-zinc 40 1 tab PO BID #60 caps 01/02/22 02/23/25 12/16/24 mg-copper 1 [id number] capsule (PreserVision AREDS-2) Oxygen Home #1 ea 12/27/22 02/23/25 Unknown Discontinue DME #1 ea 12/28/22 02/23/25 Unknown ipratropium 0.5 mg-albuterol 3 mg 3 ml inhalation Q8H PRN shortness 02/02/23/25 08/13/23 (2.5 mg base)/3 mL nebulization of breath or wheezing #810 mL soln lactobacillus combination no.8 3 3,000 mmu cells PO QAM 08/06/23 02/23/25 12/16/24 billion cell capsule Flutter Valve #1 ea 12/31/23 02/23/25 Unknown omeprazole 20 mg capsule,delayed 20 mg PO QAM #90 caps 01/17/24 02/23/25 12/16/24 release nebulizer accessories #2 ea 02/07/24 02/23/25 Unknown benzonatate 100 mg capsule 100 mg PO BID PRN cough #60 caps 09/03/24 02/23/25 Unknown albuterol sulfate 90 mcg/actuation 2 puff inhalation Q4H PRN 01/20/25 02/23/25 Unknown aerosol inhaler (Ventolin HFA) shortness of breath or wheezing #3 Inhalers fluticasone fur. 200 mcg-umeclid 1 inh inhalation HS #3 Inhalers 01/28/25 02/23/25 Unknown 62.5 mcg-vilant 25 mcg inhalat.powder (Trelegy Ellipta) gabapentin 300 mg capsule 300 mg PO HS 02/23/25 02/23/25 Unknown (Neurontin) Past Medical History Medical History Anemia Hx, PRBC Transfusion 2018 Asthma Chronic pain Left Leg COPD (chronic obstructive pulmonary disease) 2L NC HS/PRN Dyslipidemia Hx Epigastric pain Reason for 02/26/25 procedure GERD without esophagitis Hearing loss wears bilateral hearing aids Hiatal hernia History of blood transfusion 2019 History of gait disorder Cane PRN Hx of colonic polyps Kidney stones Lower extremity neuropathy Lumbar compression fracture Per 10/2024 CTS, being medically managed per 01/28/25 PCP visit On home oxygen therapy 2L O2 HS/PRN Osteopenia PVC (premature ventricular contraction) Recurrent incisional hernia with incarceration Skin lesion of face Tachycardia Hx, no recent issues Tubular adenoma of colon Umbilical hernia Urge and stress incontinence Vertigo Hx, no recent issues Past Family History Family History Daughter Family history of ovarian cancer Ovarian cancer Cancer Brother Non Hodgkin's lymphoma COPD (chronic obstructive pulmonary disease) Father Emphysema lung Other Breast cancer Hypertension Leukemia No family history of adverse response to anesthesia Denies family history of Prostate cancer Myocardial infarction Colorectal cancer Past Surgical History Surgical History History of appendectomy History of bilateral cataract extraction History of bunionectomy of both great toes History of carpal tunnel surgery of left wrist History of carpal tunnel surgery of right wrist History of cholecystectomy History of colonoscopy (2024) History of cystoscopy with stent insertion History of esophagogastroduodenoscopy (EGD) History of hernia surgery multiple History of tooth extraction Upper Denture Hx of tonsillectomy Hx of varicose vein ligation and stripping Social History Smoking Status: Never smoker Do You Dip or Chew Tobacco: No Hx Alcohol Use: No Hx Substance Use: No substance use type: does not use Lab Results Anesthesia Preop Results Results Anesthesia Widget: WBC 6.19 K/ul (4.8-10.8) 01/28/25 Hgb 14.2 g/dl (12.0-16.0) 01/28/25 Hct 43.6 % (37.0-47.0) 01/28/25 Plt 191 K/uL (130-400) 01/28/25 Na 141 mmol/L (136-145) 01/28/25 K 3.9 mmol/L (3.5-5.1) 01/28/25 Cl 102 mmol/L (98-107) 01/28/25 CO2 33 mmol/L (21-32) H 01/28/25 BUN 18 mg/dl (6-23) 01/28/25 Creat 0.72 mg/dl (0.6-1.2) 01/28/25 Glucose Level 90 mg/dl (70-99(Fasting)) 01/28/25 HA1c 5.4 % (4.5-5.6) 01/28/25 Testing Electrocardiogram Date: 02/24/25 NSR at 72bpm. Diffuse minor NS STA. Echocardiogram Date: 07/18/21 EF 65-70%. No RWMA. Mild cLVH. Trace to mild TR. Pulmonary Function Test Date: 01/28/25 Moderate obstructive lung dysfunction, insignificant bronchodilator response. Normal TLC with mild decrease in ERV. Mild decrease in DLCO.
[2025-02-26] MEDS ORDERED: LIDOCAINE 2% 2 ML VIAL/AMP(20MG/ML) INFIL ONE (08:43)
[2025-02-26] MEDS ORDERED: fentaNYL citrate PF 100 MCG/2 ML VIAL ONE ×2 (08:43→10:57)
[2025-02-26] MEDS ORDERED: PROPOFOL IV EMULSION 10 MG/ML 20 ML VIAL IV ONE (08:43)
[2025-02-26] MEDS ORDERED: ROCURONIUM BROMIDE 10 MG/ML 5 ML VIAL IV ONE ×3 (08:43→12:18)
[2025-02-26] MEDS ORDERED: ONDANSETRON INJ 2 MG/ML 2 ML VIAL ONE (08:44)
[2025-02-26] MEDS ORDERED: DEXAMETHASONE SOD INJ 4 MG/ML VIAL ONE (08:44)
[2025-02-26] MEDS ORDERED: HYDROmorphone INJ 1 MG/ML SYRINGE IV PRN (08:55)
[2025-02-26] MEDS ORDERED: ATROPINE SULFATE 0.1 MG/ML 10ML SYR IV PRN (08:55)
[2025-02-26] MEDS ORDERED: ePHEDrine sulfate 50 MG/ML AMP IV PRN (08:55)
[2025-02-26] MEDS: LR 15ML/HR IV SCH (09:06)
--- NOTE | 2025-02-26 09:21 | History & Physical Bridge Note ---
Date of Service February 26, 2025 History & Physical Bridge Note I have examined the patient, reviewed the History & Physical and in the interval since the performance of the History & Physical I have noted the following changes of clinical significance: no changes noted
[2025-02-26] MEDS ORDERED: ACETAMINOPHEN 1000 MG/100 ML IV IV ONE (09:56)
[2025-02-26] MEDS: ceFAZolin 2000MG 2,000 MG/15 ML SYR IV SCH (09:58)
[2025-02-26] MEDS ORDERED: PHENYLEPHRINE HCL 10 MG/ML VIAL ONE (10:14)
[2025-02-26] MEDS ORDERED: oxyCODONE HCL IR 5 MG TAB (IMMEDIATE RELEASE) PO PRN ×2 (10:17)
[2025-02-26] MEDS ORDERED: MoRPHine SULFATE 4 MG/ML 1 ML CARP\\VIAL IV PRN (10:17)
[2025-02-26] MEDS ORDERED: MoRPHine SULFATE 2 MG/ML CARP IV PRN (10:17)
[2025-02-26] MEDS ORDERED: ACETAMINOPHEN 325 MG TAB PO PRN (10:17)
[2025-02-26] MEDS ORDERED: ONDANSETRON INJ 2 MG/ML 2 ML VIAL IV PRN (10:17)
[2025-02-26] MEDS ORDERED: KETOROLAC 30 MG/ML VIAL ONE (10:36)
[2025-02-26] MEDS ORDERED: ALBUTEROL HFA 8 GM INHALER INH ONE (11:39)
[2025-02-26] MEDS ORDERED: SUGAMMADEX SODIUM 200 MG/2 ML VIAL IV ONE (12:50)
[2025-02-26] MEDS: BUPIVACAINE/EPINEPHRINE 0.5% MPF 1:200,000 30 ML VIAL ONE (13:00)
[2025-02-26] MEDS: ONDANSETRON INJ 2 MG/ML 2 ML VIAL IV PRN (13:25)
[2025-02-26] MEDS: fentaNYL citrate PF 100 MCG/2 ML VIAL IV PRN (13:25)
[2025-02-26] MEDS: PROMETHAZINE 6.25 MG/50.25 ML BAG IV STA (13:40)
--- NOTE | 2025-02-26 13:48 | Operative Report ---
PG Post Operative Report Pre & Post Diagnosis Operation Date: 02/26/25 09:45 Pre-Op Diagnosis: Recurrent Incisional Hernia with Incarceration Post-Op Diagnosis: Recurrent Incisional Hernia with Incarceration; adhesions; malpositioned prior mesh I identified the patient and participated in the time-out.: Yes Procedure Operation Date: 02/26/25 09:45 Actual Procedures p Laparoscopic Explant of Old Mesh, Repair of Multiple Recurrent Hernias with Mesh, Extensive Enterolysis(Not Applicable), partial omentectomy - Rios Pichardo DO Surgeon Rios Pichardo DO Pipe Layer Helper candida Layton Estimated Blood Loss 25 Findings Consistent with Post-Op Diagnosis Specimens explanted mesh Description of Procedure After informed consent was obtained the patient was taken to the operating room and placed in supine position. After successful intubation a Griffith catheter was placed sterilely. The abdomen was then sterilely prepped and draped in usual fashion. I began with the left upper quadrant incision. This was carried down through the soft tissue using cautery. The anterior fascia was opened using cautery and two #0 Vicryl stay sutures were placed. Peritoneum was elevated with hemostats and incised under direct vision using a Metzenbaum scissor. A finger sweep was performed. A 12 mm Weiss trocar was placed and the abdomen was insufflated to 16 mmHg. Laparoscope was inserted. We immediately encountered a fair amount of abdominal adhesions. These involved the entire midline and right side of the abdomen. I was able to place a left lower quadrant 5 mm trocar and a left mid abdominal 5 mm trocar. Later in the case an additional right upper quadrant 5 mm trocar and a subxiphoid 5 mm trocar would be placed. I began by tediously taking down adhesions. This was performed with blunt dissection, sharp scissor lysis, and small amounts of harmonic scalpel. The adhesions involve the omentum as well as colon and small intestine. As we worked from lateral to medially we encountered a prior mesh which is where the majority of the adhesions were attached. There was also a right sided large hernia with colonic incarceration as well as several smaller hernias just inferior to this and a Mauritanian cheese type fashion. The totality of the hernia defects probably measured 6 cm. After taking down all the adhesions we could see that the previous mesh was curled both laterally and medially. This would make placing a second underlay mesh essentially impossible. Therefore I decided to explant the malpositioned prior mesh. The mesh was taken down using sharp dissection cautery and harmonic scalpel. The mesh was placed in the right upper quadrant to be removed at the end of the case. We also used a harmonic scalpel to take down the hernia sac and 360 degrees. There was also some ischemic appearing omentum that had been attached within the hernias that we resected as well primarily using the harmonic scalpel. This resected omentum would also be removed at the end of the case. Next we obtained a 15 cm circular Surgi-mesh. This was rolled up and placed into the abdomen via the camera port site. The mesh was unrolled. A small incision was made in the mid abdomen in the central position between all of the hernias. A fascial closure device was then used to grasp the Prolene stitch and pulled the mesh up as an underlay. The mesh did lay nice and flat and covered all of the hernia defects for several centimeters in all directions. A combination of the Protack device as well as deep ab sorbable Relia-tacks were used to secure the mesh. The mesh laid nice and flat and tension-free. The central Prolene stitch was also tied down. At the completion of the procedure there was adequate hemostasis. We did thoroughly irrigate the abdomen. An Endo Catch bag was placed and resected portions of omentum as well as peritoneal sac were placed into the bag and extracted. The old mesh was extracted through the camera port site as well. The abdomen was then desufflated. The fascia of the camera port was closed using 0 Vicryl in [id number] fashion. All the wounds were irrigated and closed using 4-0 Monocryl. Marcaine with epinephrine were injected around the incisions. Dermabond glue was used as a dressing. An abdominal binder was also placed. The patient was awakened extubated and transferred to recovery in stable condition. My nurse practitioner was present for the entire case was instrumental in assisting with running the camera, assisting with mesh placement wound closure and dressing placement. I attest to the content of the Intraoperative Record and any orders documented therein. Any exceptions are noted below.
[2025-02-26] MEDS: PROMETHAZINE HCL INJ 25 MG/ML 1 ML VIAL ONE (13:52)
[2025-02-26] MEDS ORDERED: ALBUT/IPRATROP 3MG/0.5MG NEB 3 ML VIAL INH PRN (14:28)
[2025-02-26] MEDS ORDERED: ALBUTEROL HFA 8 GM INHALER INH PRN (14:28)
[2025-02-26] MEDS: LACTATED RINGER'S 1,000 ML IV SCH (14:43)
--- NOTE | 2025-02-26 14:56 | Anesthesiology Progress Note ---
Date of Service February 26, 2025 Anesthesia Post Procedure Vital Signs Vital Signs: Temp Pulse Pulse Resp BP Pulse Ox O2 Del Method 02/26/25 14:46 36.5 C 86 16 122/76 95 Nasal Cannula 02/26/25 14:05 36.3 C L 90 16 131/73 97 Nasal Cannula 02/26/25 13:55 91 H 17 106/89 94 Nasal Cannula 02/26/25 13:45 93 H 14 120/79 92 Nasal Cannula 02/26/25 13:35 91 H 19 152/80 H 93 Room Air 02/26/25 13:25 93 H 15 159/84 H 98 Room Air 02/26/25 13:18 36.0 C L 102 H 20 156/95 H 98 Room Air 02/26/25 08:50 36.5 C 83 20 158/78 H 93 Room Air O2 Flow Rate 02/26/25 14:46 2 02/26/25 14:05 2 02/26/25 13:55 2 02/26/25 13:45 2 02/26/25 13:35 02/26/25 13:25 02/26/25 13:18 02/26/25 08:50 Pain Intensity Abdomen: Pain Intensity: 8 Transfer of Care Handoff Completed per policy Notes Mental Status: alert / awake / arousable and participated in evaluation Nausea / Vomiting: adequately controlled Pain: adequately controlled Airway Patency, RR, SpO2: stable & adequate BP & HR: stable & adequate Hydration State: stable & adequate Anesthetic Complications: no major complications apparent and Pt Satisfied with anesthetic care
[2025-02-26] MEDS: ACETAMINOPHEN 1,000 MG/100 ML VIAL IV SCH (15:50)
[2025-02-26] MEDS: FLUTICASONE FUROATE 200MCG 14 PUFFS/INHALER INH SCH (20:35)
[2025-02-26] MEDS: GABAPENTIN 300 MG CAP PO SCH (20:35)
[2025-02-26] MEDS: UMECLIDINIUM/VILANTEROL 62.5/25MCG 7 PUFFS/INHALER INH SCH (20:35)
[2025-02-26] MEDS ORDERED: NON-FORMULARY MEDICATION (Fluticasone-Umeclidin-Vilanter [Trelegy Ellipta] 200-62.5-25 mcg INH SCH (21:00)
[2025-02-27 06:23] LABS: Basophils # (auto) 0.01 K/uL (0.00-0.20); Basophils % (auto) 0.1 %; Hematocrit (blood only) 34.8 % (37.0-47.0); Hemoglobin 11.4 g/dl (12.0-16.0); Immature Granulocytes # (auto) 0.03 K/uL (0.01-0.20); Immature Granulocytes % (auto) 0.3 %; Lymphocytes # (auto) 1.83 K/uL (1.20-3.40); Lymphocytes % (auto) 20.2 %; Mean Corpuscular Hemoglobin 30.8 pg (25.0-34.0); Mean Corpuscular Hgb Conc 32.8 g/dL (32.0-36.0); Mean Corpuscular Volume 94.1 fL (80.0-100.0); Mean Platelet Volume 10.5 fL (9.4-12.4); Monocytes # (auto) 0.74 K/uL (0.11-0.59); Monocytes % (auto) 8.2 %; Neutrophils # (auto) 6.45 K/uL (1.40-6.50); Neutrophils % (auto) 71.2 %; Platelet Count 145 K/uL (130-400); RDW Coefficient of Variation 13.5 % (11.5-14.5); RDW Standard Deviation 46.2 fL (36.4-46.3); White Blood Count 9.06 K/ul (4.8-10.8)
[2025-02-27 06:43] LABS: BUN Creatinine Ratio 23.2 (10-20); Calcium 8.4 mg/dl (8.6-10.3); Creatinine Clr Calc Pharmacy 51.3 ml/min; Potassium 4.3 mmol/L (3.5-5.1)
[2025-02-27] MEDS: MULTIVITAMIN TAB PO SCH (08:55)
--- NOTE | 2025-02-27 09:24 | Surgery Progress Note ---
Date of Service February 27, 2025 Assessment & Plan (1) History of incisional hernia repair: Plan: POD 1 extensive ventral hernia repair , removal of old mesh Patient is doing relative well considered extent of surgery abd is sore , dermabond cdi no s/s infection, abd binder vss, wbc wnl , h/h dropped from pre op will recheck at 1100, denies dizziness/lightheaded remove strickland cath today, OOB to chair Patient likely to stay another night for pain control and make sure safe to return home. Does live with son. As above. Doing well all things considered. Not ready for discharge secondary to pain and difficulty ambulating. Will reevaluate tomorrow but she may need to be here until Sunday or Sunday due to the scope of the surgery her age and comorbidities. Admission and Anticipated Discharge Date Admission Date: February 26, 2025 Subjective post surgical abd pain denies fever/chills, Cp, sob Review of Systems Constitutional: no fever and no chills Respiratory: no dyspnea Cardiovascular: no chest pain Gastrointestinal: + abdominal pain; no nausea and no vomit ing Musculoskeletal: no muscle weakness Psychiatric: no confusion Physical Exam Constitutional: cooperative and comfortable; no acute distress Respiratory: normal respiratory effort and able to speak in complete sentences; no respiratory distress Cardiovascular: Rate/Rhythm: regular rate Gastrointestinal (Abdomen): Inspection/Auscultation: + abdominal surgical incision (dermabond ); abdomen not distended Percussion/Palpation: + abdomen tender and abdomen soft Psychiatric: A+Ox3, euthymic affect Results & Data Vital Signs (Past 12 Hours) Vital Signs Temp Pulse Pulse Resp BP Pulse Ox O2 Del Method 02/27/25 08:00 97.9 F 88 16 107/68 91 Room Air 02/27/25 07:28 97.9 F 78 16 104/64 91 Room Air 02/27/25 03:00 98.1 F 83 12 100/65 93 Nasal Cannula 02/26/25 23:31 98.6 F 87 12 100/63 95 Nasal Cannula O2 Flow Rate 02/27/25 08:00 02/27/25 07:28 02/27/25 03:00 2 02/26/25 23:31 2 Results CBC w Diff Results: RBC 3.70 M/uL (4.20-5.40) L 02/27/25 WBC 9.06 K/ul (4.8-10.8) 02/27/25 Hgb 11.3 g/dl (12.0-16.0) L 02/27/25 Hct 35.1 % (37.0-47.0) L 02/27/25 MCV 94.1 fL (80.0-100.0) 02/27/25 MCH 30.8 pg (25.0-34.0) 02/27/25 MCHC 32.8 g/dL (32.0-36.0) 02/27/25 RDW Standard Deviation 46.2 fL (36.4-46.3) 02/27/25 RDW Coefficient of Variation 13.5 % (11.5-14.5) 02/27/25 Plt Count 145 K/uL (130-400) 02/27/25 MPV 10.5 fL (9.4-12.4) 02/27/25 Nucleated Red Blood Cells % (auto) 0.0 % 06/26 Nucleated RBC Absolute Count (auto) 0.00 K/uL (0-0) 12/14 Neutrophils (%) (Auto) 71.2 % 02/27/25 Lymphocytes (%) (Auto) 20.2 % 02/27/25 Monocytes # (Auto) 0.74 K/uL (0.11-0.59) H 02/27/25 Eosinophils # (Auto) 0.00 K/uL (0.00-0.50) 02/27/25 Immature Granulocyte % (Auto) 0.3 % 02/27/25 Neutrophils # (Auto) 6.45 K/uL (1.40-6.50) 02/27/25 Lymphocytes # (Auto) 1.83 K/uL (1.20-3.40) 02/27/25 Monocytes # (Auto) 0.74 K/uL (0.11-0.59) H 02/27/25 Eosinophils # (Auto) 0.00 K/uL (0.00-0.50) 02/27/25 Basophils # (Auto) 0.01 K/uL (0.00-0.20) 02/27/25 Immature Granulocyte # (Auto) 0.03 K/uL (0.01-0.20) 5 Giant Platelets 1+ 06/26/19 Polychromasia 1+ 06/09/19 Hypochromasia Present 07/09/19 Anisocytosis Present 07/29/19 Microcytosis Present 07/09/19 Ovalocytes 1+ 07/29/19 PG Care Time/CCT Total # of Minutes Spent Total Time Spent with Patient: Total time spent is greater than 50% in coordination of care (as documented) at patient's floor/unit and/or counseling patient: Coding Level of Care Code 08849 Post Operative Follow-Up Diagnoses History of incisional hernia repair Z98.890; Z87.19
[2025-02-27 12:14] LABS: Hematocrit (blood only) 35.1 % (37.0-47.0); Hemoglobin 11.3 g/dl (12.0-16.0)
[2025-02-27] MEDS: BENZONATATE 100 MG CAPSULE PO PRN (17:30)
--- NOTE | 2025-02-28 05:43 | Surgery Progress Note ---
Date of Service February 28, 2025 Assessment & Plan (1) Recurrent incisional hernia with incarceration: Plan: Patient is status post hernia repair on 02/26/2025 (postop day #2) Continue diet as tolerated Continue analgesics as needed Mobilize as able Check a.m. labs when available If patient remains hospitalized and labs are stable, consideration may be given to initiating DVT prophylaxis As above. She continues to improve. Still not quite ready for discharge secondary to surgical discomfort. I do believe she will probably be ready by tomorrow. Admission and Anticipated Discharge Date Admission Date: February 26, 2025 Subjective Patient is currently resting comfortably in bed. She notes pain in her abdomen near her surgical incisions. She says that she is tolerating solid food without nausea or vomiting. She has not had a bowel movement since surgery but is passing flatus. She is urinating without difficulty. Physical Exam Gastrointestinal (Abdomen): Abdomen is soft without distention. She has appropriate tenderness near her surgical incisions. Laparoscopic incisions are clean, dry, and intact. Results & Data Vital Signs (Past 12 Hours) Vital Signs Temp Pulse Resp BP Pulse Ox O2 Del Method O2 Flow Rate 02/27/25 21:20 36.7 C 71 20 115/67 95 Nasal Cannula 2 PG Care Time/CCT Total # of Minutes Spent Total Time Spent with Patient: Total time spent is greater than 50% in coordination of care (as documented) at patient's floor/unit and/or counseling patient: Coding Level of Care Code 86697 Post Operative Follow-Up Diagnoses Recurrent incisional hernia with incarceration K43.0
[2025-02-28 06:21] LABS: Basophils # (auto) 0.03 K/uL (0.00-0.20); Basophils % (auto) 0.4 %; Eosinophils # (auto) 0.24 K/uL (0.00-0.50); Hematocrit (blood only) 35.1 % (37.0-47.0); Hemoglobin 11.1 g/dl (12.0-16.0); Immature Granulocytes # (auto) 0.04 K/uL (0.01-0.20); Immature Granulocytes % (auto) 0.5 %; Lymphocytes # (auto) 2.65 K/uL (1.20-3.40); Lymphocytes % (auto) 32.9 %; Mean Corpuscular Hemoglobin 30.4 pg (25.0-34.0); Mean Corpuscular Hgb Conc 31.6 g/dL (32.0-36.0); Mean Corpuscular Volume 96.2 fL (80.0-100.0); Mean Platelet Volume 10.6 fL (9.4-12.4); Monocytes # (auto) 0.52 K/uL (0.11-0.59); Monocytes % (auto) 6.5 %; Neutrophils # (auto) 4.57 K/uL (1.40-6.50); Neutrophils % (auto) 56.7 %; Platelet Count 134 K/uL (130-400); RDW Coefficient of Variation 13.6 % (11.5-14.5); RDW Standard Deviation 48.4 fL (36.4-46.3); Red Blood Count 3.65 M/uL (4.20-5.40); White Blood Count 8.05 K/ul (4.8-10.8)
[2025-02-28] MEDS: ENOXAPARIN INJ 40 MG/0.4 ML SYR SQ SCH (11:18)
[2025-02-28] MEDS: ACETAMINOPHEN 325 MG TAB PO PRN (17:31)
--- NOTE | 2025-03-01 06:45 | Surgery Progress Note ---
Date of Service March 01, 2025 Assessment & Plan (1) Recurrent incisional hernia with incarceration: Plan: Patient is status post hernia repair on 02/26/2025 (postop day #3) Continue diet as tolerated Continue analgesics as needed Continue to mobilize as able Lovenox is in place for DVT prevention If clinical improvement continues consider discharge to home later today As above. Doing well. Okay for discharge. Instructions given. Admission and Anticipated Discharge Date Admission Date: February 28, 2025 Subjective Patient is resting comfortably in bed. She notes she feels better than what she did yesterday. She does continue to have abdominal pain but this has improved. She notes that she has had a bowel movement last night. She is tolerating solid food without any nausea or vomiting. Physical Exam Gastrointestinal (Abdomen): Abdomen is soft with minimal distention. Laparoscopic incisions are clean, dry, intact. Patient continues to have appropriate pain near surgical incisions. Results & Data Vital Signs (Past 12 Hours) Vital Signs Temp Pulse Resp BP Pulse Ox O2 Del Method O2 Flow Rate 02/28/25 20:00 Nasal Cannula 2 02/28/25 19:17 94 Nasal Cannula 2 02/28/25 19:12 37 C 99 H 18 133/78 87 L Room Air PG Care Time/CCT Total # of Minutes Spent Total Time Spent with Patient: Total time spent is greater than 50% in coordination of care (as documented) at patient's floor/unit and/or counseling patient: Coding Level of Care Code 26897 Post Operative Follow-Up Diagnoses Recurrent incisional hernia with incarceration K43.0
[2025-03-01 07:30] VITALS: BP 124/72; RESP 15; TEMP 97.9; O2SAT 92
[2025-03-01 11:21] VITALS: PULSE 96
== END 2025-03-01 12:50 | disposition home or self-care (01) | DRG 355 ==
LOC: ASU 08:05 → 3E 08:05

== ENCOUNTER 2025-04-07 15:40 | Inpatient (IN) ==
--- NOTE | 2025-04-07 16:07 | Emergency Department Note ---
Impression & Plan Acute exacerbation of chronic obstructive pulmonary disease, Hypoxia, Vertigo, Thoracic compression fracture ED Provider Note NAME: ABBI LICONA AGE: 84 SEX: F : 1940 ARRIVES VIA: Walk-In INFORMANT: Patient, son ED PROVIDER(S): Murphy Park MD CHIEF COMPLAINT: Vertigo MEDICAL DECISION MAKING: Patient presents due to concerns for vertigo. IV was established and blood work is obtained along with CT angiography of the head and neck. 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 Patient does not have any known prior history of CVA. Patient also noted to have high-grade stenosis of proximal left CAN CAPPER as well as distal left M1 branch. Patient was noted to be hypoxemic patient does have a known history of COPD. Patient was placed on nasal cannula breathing treatment was provided. COVID flu and RSV swab obtained. The patient may be somewhat restricted with her breathing secondary to her recently diagnosed T5 fracture. I did speak with the on-call neurologist Dr. Stallings to discuss the patient's vascular findings and after further discussion he does recommend aspirin and Plavix but does not believe the patient would require transfer or some sort of emergent intervention. The patient has had symptoms for about 3 to 4 days with regard to vertigo and has no other focal deficits on exam. Patient was attempted to be ambulatory but was unable to do so given these concerns the patient was admitted to the hospital service. I did speak with the on-call hospitalist Dr. Cohn and the patient was admitted. Discussion w/ other healthcare providers: Dr. Stallings neurology Dr. Cohn inpatient medicine service Prior /Outside records reviewed: I reviewed part of a primary care visit from 07/01/2025. Patient was seen for healthcare maintenance exam. Patient with a history of COPD GERD peripheral neuropathy does have a prior history of dizziness and vertigo which was thought to be more consistent with BPPV Differential diagnosis: Benign positional vertigo, dehydration, hypovolemia, anemia, infection, hypoglycemia, electrolyte abnormalities, arrhythmia, tox among others were considered. Diagnostics, as interpreted by me: ECG: Normal sinus rhythm, rate of 82, normal intervals, normal axis T wave version in lead III no ST elevations. Cardiac monitoring: An order was placed for continuous cardiac monitoring. The monitor shows a rate of 85 with sinus rhythm. Patient was placed on pulse oximetry Medical decision rules: none Imaging studies: I informally interpreted the patient's chest x-ray does not show obvious pneumonia with formal report to follow. HPI: Patient presents due to concern for vertigo. The patient states that over the last several days that she has feeling as though she is spinning or that the room is spinning with changes in position that she sticks with turning her head. The patient does have a prior history but states that seems to be worse as she was having some ambulatory dysfunction needing to hold onto things in order to walk and not fall. Patient denies any head or neck pain. Patient reportedly has had some upper back pain with [id number] and feels as though it worsens with coughing the patient did have a recent x-ray. Review of this shows that the patient does have a T5 fracture. Patient denies any chest pains or shortness of breath. Known history of COPD. Patient is accompanied by her son. She lives with the son. No change in elevation underwater activities no ear pain tinnitus or worsening hearing issues. PAST MEDICAL HISTORY: See Below PAST SURGICAL HISTORY: See Below SOCIAL HISTORY: See Below HOME MEDICATIONS: See Below ALLERGIES: See Below VITALS: See Below PHYSICAL EXAMINATION: GENERAL: NAD, non-toxic. EYE EXAM: Normal conjunctiva. PERRL, no anisocoria and EOM's grossly intact w/o pain. No nystagmus. OROPHARYNX: Moist mucus membranes, grossly normal dentition. NECK: Trachea midline, no stridor. Supple, no nuchal rigidity, no adenopathy, non-tender. No signs of meningismus. FROM of the neck with good chin to chest and neck extension. No carotid bruits appreciated. LUNGS: Clear to auscultation. Normal chest wall mechanics. HEART: NSR, no MRG. ABDOMEN: Abdomen soft, non-tender, no masses, no rebound or guarding. BACK: No CVA TTP. SKIN: No rashes and no bruising. UPPER EXTREMITIES: Upper extremities are grossly normal. LOWER EXTREMITIES: Grossly normal, no edema. NEURO EXAM: Awake and alert, follows commands, no obvious facial asymmetry, normal speech, moves all 4 extremities. Good [id number], no drift and no sensory deficits. Past Med/Surg History Problem List (Updated 04/07/25 @ 22:52 by Murphy Park MD) Vertigo (Acute) Hypoxia (Acute) Acute exacerbation of chronic obstructive pulmonary disease (Acute) COPD exacerbation Thoracic compression fracture (Acute) Acute severe vertigo Mid back pain History of incisional hernia repair (02/26/25) Laparoscopic Explant of Old Mesh, Repair of Multiple Recurrent Hernias with Mesh, Extensive Enterolysis - Rios Pichardo, DO Hyperglycemia Chronic bronchitis Asthma-COPD overlap syndrome Multiple gastric polyps Hypervitaminosis D Dysphagia Obesity (BMI 30.0-34.9) Gait disturbance Ureterolithiasis COPD, moderate (Acute) Dyslipidemia (Acute) Low back pain (Acute) Osteopenia (Acute) PVC (premature ventricular contraction) (Acute) Peripheral neuropathy (Acute) Sensorineural hearing loss (Acute) Urge and stress incontinence (Acute) Vitamin B12 deficiency (Acute) GERD (gastroesophageal reflux disease) (Chronic) Medical History Epigastric pain Large hiatal hernia Lower extremity neuropathy Recurrent incisional hernia with incarceration Encounter for pre-operative examination Tubular adenoma of colon History of blood transfusion 2018 Epigastric pain Reason for 02/26/25 procedure Recurrent incisional hernia with incarceration Hiatal hernia Hearing loss wears bilateral hearing aids PVC (premature ventricular contraction) Osteopenia Urge and stress incontinence Hx of colonic polyps Lower extremity neuropathy History of gait disorder Cane PRN Dyslipidemia Hx Skin lesion of face GERD without esophagitis Lumbar compression fracture Per 10/2024 CTS, being medically managed per 01/28/25 PCP visit Kidney stones Umbilical hernia Chronic pain Left Leg On home oxygen therapy 2L O2 HS/PRN Asthma Vertigo Hx, no recent issues Tachycardia Hx, no recent issues Anemia Hx, PRBC Transfusion 2018 COPD (chronic obstructive pulmonary disease) 2L NC HS/PRN Surgical History History of tooth extraction Upper Denture History of bilateral cataract extraction History of appendectomy History of cystoscopy with stent insertion History of esophagogastroduodenoscopy (EGD) Hx of tonsillectomy Hx of varicose vein ligation and stripping History of bunionectomy of both great toes History of carpal tunnel surgery of right wrist History of colonoscopy (2024) History of carpal tunnel surgery of left wrist History of hernia surgery multiple History of cholecystectomy Family History Daughter Family history of ovarian cancer Ovarian cancer Cancer Brother Non Hodgkin's lymphoma COPD (chronic obstructive pulmonary disease) Father Emphysema lung Cancer age 63 Other Breast cancer Hypertension Leukemia No family history of adverse response to anesthesia Denies family history of Prostate cancer Myocardial infarction Colorectal cancer Social History Smoking Status: Never smoker Second Hand Exposure: No; Do You Dip or Chew Tobacco: No; Hx Alcohol Use: No Hx Substance Use: No Preferred Language: Sammarinese Communication Ability: Effective Communication Ability Comment: HARD OF HEARING - AIDES Visual Impairment: No Limitations 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 Required: No Beliefs That Will Affect Care: None marital status: / Current Living Situation: Family Current Living Situation Comment: Son current occupational status: retired 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[employer]; 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 How many Children do You have: 6 How many Children do You have Comment: 4 biological children; 2 stepchildren; 1 daughter is Feels Safe at Home: Yes during the past year weight has: remained stable Seatbelt Use: always Assistive Devices: Cane and Oxygen - at Night Allergies Allergies Allergy/AdvReac Type Severity Reaction Status Date / Time levofloxacin Allergy Intermediate Diarrhea Verified 03/16/25 14:24 Home Meds Home Medications Medication Instructions Recorded Confirmed cyanocobalamin (vitamin B-12) 1,000 mcg PO QAM 02/17/19 04/07/25 1,000 mcg tablet (Vitamin B-12) multivitamin-ferrous 1 tab PO QAM 07/25/19 04/07/25 fumarate-folic acid 18 mg-400 mcg tablet (Centrum) lactobacillus combination no.8 3 3,000 mmu cells PO QAM 08/06/23 04/07/25 billion cell capsule gabapentin 300 mg capsule 300 mg PO HS 02/23/25 04/07/25 (Neurontin) Previous Rx's Medication Instructions Recorded vit C 250 mg-vit E 90 mg-zinc 40 1 tab PO BID #60 caps 01/02/22 mg-copper 1 [id number] capsule (PreserVision AREDS-2) Oxygen Home #1 ea 12/27/22 Discontinue DME #1 ea 12/28/22 ipratropium 0.5 mg-albuterol 3 mg 3 ml inhalation Q8H PRN shortness 01/12/23 (2.5 mg base)/3 mL nebulization of breath or wheezing #810 mL soln Flutter Valve #1 ea 12/31/23 nebulizer accessories #2 ea 02/07/24 albuterol sulfate 90 mcg/actuation 2 puff inhalation Q4H PRN 01/20/25 aerosol inhaler (Ventolin HFA) shortness of breath or wheezing #3 Inhalers fluticasone fur. 200 mcg-umeclid 1 inh inhalation HS #3 Inhalers 01/28/25 62.5 mcg-vilant 25 mcg inhalat.powder (Trelegy Ellipta) benzonatate 100 mg capsule 100 mg PO BID PRN cough #20 caps 03/01/25 omeprazole 20 mg capsule,delayed 20 mg PO QAM #90 caps 03/15/25 release Results & Data (ED) Vital Signs Vital Signs - 24 hr 04/07/25 15:45 04/07/25 15:56 04/07/25 16:20 Temperature 36.6 C Temperature Source Temporal Artery Scan Pulse Rate 91 H Pulse Rate [Apical] Pulse Rate [Right Finger] 84 Pulse Rhythm [Right Finger] Regular Pulse Strength [Right Finger] Normal Respiratory Rate 16 23 Respiratory Effort / Characteristics Non-Labored Spontaneous Non-Labored Respiratory Depth Normal Normal Respiratory Pattern Regular Blood Pressure 147/80 H Blood Pressure [Right Arm] 156/106 H Blood Pressure Mean 102 Blood Pressure Mean [Right Arm] 122 Blood Pressure Position [Right Arm] Lying Pulse Oximetry 94 95 94 Oxygen Delivery Method Room Air Room Air Room Air Oxygen Flow Rate Sepsis Recent Fever Within 48 Hours No Sepsis New/Unexplained Change in Mental Status No Sepsis Action Taken by Nursing No Action Required Oxygen Flow Rate - Titration Pulse Oximetry Post Tiitration 04/07/25 16:54 04/07/25 17:02 04/07/25 17:04 Temperature Temperature Source Pulse Rate 83 Pulse Rate [Apical] Pulse Rate [Right Finger] 104 H Pulse Rhythm [Right Finger] Pulse Strength [Right Finger] Normal Respiratory Rate 18 Respiratory Effort / Characteristics Non-Labored Spontaneous Respiratory Depth Normal Respiratory Pattern Regular Blood Pressure Blood Pressure [Right Arm] 170/112 H Blood Pressure Mean Blood Pressure Mean [Right Arm] 131 Blood Pressure Position [Right Arm] Pulse Oximetry 86 L 86 L Oxygen Delivery Method Room Air Room Air Oxygen Flow Rate Sepsis Recent Fever Within 48 Hours Sepsis New/Unexplained Change in Mental Status Sepsis Action Taken by Nursing Oxygen Flow Rate - Titration 2 Pulse Oximetry Post Tiitration 92 04/07/25 19:17 Temperature Temperature Source Pulse Rate Pulse Rate [Apical] 98 H Pulse Rate [Right Finger] Pulse Rhythm [Right Finger] Pulse Strength [Right Finger] Respiratory Rate 20 Respiratory Effort / Characteristics Non-Labored Spontaneous Respiratory Depth Normal Respiratory Pattern Regular Blood Pressure Blood Pressure [Right Arm] 133/95 Blood Pressure Mean Blood Pressure Mean [Right Arm] 107 Blood Pressure Position [Right Arm] Semi-fowlers Pulse Oximetry 93 Oxygen Delivery Method Nasal Cannula Oxygen Flow Rate 2 Sepsis Recent Fever Within 48 Hours Sepsis New/Unexplained Change in Mental Status Sepsis Action Taken by Nursing Oxygen Flow Rate - Titration Pulse Oximetry Post Tiitration Home Medications Current Medication List: was personally reviewed by me Laboratory Data Attestation: I reviewed the patient's lab results. 04/07/25 16:00 04/07/25 16:00 Lab Results 04/07/25 04/07/25 Range/Units 16:00 18:55 WBC 8.44 (4.8-10.8) K/ul RBC 4.54 (4.20-5.40) M/uL Hgb 13.2 (12.0-16.0) g/dl Hct 41.6 (37.0-47.0) % MCV 91.6 (80.0-100.0) fL MCH 29.1 (25.0-34.0) pg MCHC 31.7 L (32.0-36.0) g/dL RDW Std Deviation 46.7 H (36.4-46.3) fL RDW Coeff of Michael 13.8 (11.5-14.5) % Plt Count 284 (130-400) K/uL MPV 10.4 (9.4-12.4) fL Immature Gran % (Auto) 0.6 % Neut % (Auto) 47.7 % Lymph % (Auto) 37.6 % [place]oshone % (Auto) 7.7 % Eos % (Auto) 6.0 % Baso % (Auto) 0.4 % Neut # (Auto) 4.03 (1.40-6.50) K/uL Lymph # (Auto) 3.17 (1.20-3.40) K/uL [place]oshone # (Auto) 0.65 H (0.11-0.59) K/uL Eos # (Auto) 0.51 H (0.00-0.50) K/uL Baso # (Auto) 0.03 (0.00-0.20) K/uL Immature Gran # (Auto) 0.05 (0.01-0.20) K/uL Sodium 138 (136-145) mmol/L Potassium 4.0 (3.5-5.1) mmol/L Chloride 99 (98-107) mmol/L Carbon Dioxide 35 H (21-32) mmol/L Anion Gap 4 (3-11) BUN 14 (6-23) mg/dl Creatinine 0.58 L (0.6-1.2) mg/dl Est Cr Clr Drug Dosing 59.9 ml/min eGFR 88.63 BUN/Creatinine Ratio 24.1 H (10-20) Glucose 122 H (70-99(Fasting)) mg/dl Calcium 9.3 (8.6-10.3) mg/dl Total Bilirubin 0.5 (0.2-1.0) mg/dl AST 17 (13-39) U/L ALT 10 (7-52) U/L Alkaline Phosphatase 97 (34-104) U/L Total Protein 7.9 (6.0-8.3) gm/dl Albumin 3.7 (3.4-5.0) gm/dl Globulin 4.2 H (2.5-4.0) gm/dl Albumin/Globulin Ratio 0.9 (0.9-2) SARS-CoV-2 (PCR) NEGATIVE (Negative) Influenza Type A (PCR) Negative (Neg) Influenza Type B (PCR) Negative (Neg) RSV (RT-PCR) Negative (Neg) Administered Medications Acetaminophen (Acetaminophen 325 Mg Tab) 650 mg PO TID MASOUD Stop: 05/07/25 20:59 Last Admin: 04/07/25 22:24 Dose: 650 mg Documented By: CR Calcitonin [place] (Calcitonin [place] Na 200 Iu/Ac 3.7 Ml Btl) 1 sprays NA DAILY MASOUD Stop: 05/07/25 20:51 Last Admin: 04/07/25 22:16 Dose: 1 sprays Documented By: CR Gabapentin (Gabapentin 300 Mg Cap) 300 mg PO HS MASOUD Stop: 05/07/25 20:59 Last Admin: 04/07/25 22:16 Dose: 300 mg Documented By: CR Guaifenesin (Guaifenesin 600 Mg Tabcr) 600 mg PO Q12 MASOUD Stop: 05/07/25 20:59 Last Admin: 04/07/25 22:17 Dose: 600 mg Documented By: MILO Lidocaine (Lidocaine 5% 1 Patch) 2 patch TD HS MASOUD Stop: 05/07/25 20:59 Last Admin: 04/07/25 22:17 Dose: 2 patch Documented By: MILO Meclizine HCl (Meclizine 12.5 Mg Tab) 12.5 mg PO TID MASOUD Stop: 05/07/25 20:59 Last Admin: 04/07/25 22:19 Dose: 12.5 mg Documented By: MILO Miscellaneous (Remove Lidoderm Patch) 1 each N/A DAILY@2100 [facility] Stop: 05/07/25 20:59 Last Admin: 04/07/25 22:20 Dose: Not Given Documented By: MILO Multivitamins/Minerals (Cerovite Adv Formula Tab) 1 tab PO BID MASOUD Stop: 05/07/25 20:59 Last Admin: 04/07/25 22:19 Dose: 1 tab Documented By: MILO Nystatin (Nystatin Susp 500,000 U/5 Ml Udc) 5 ml PO QID MASOUD Stop: 04/17/25 20:59 Last Admin: 04/07/25 22:19 Dose: 5 ml Documented By: MILO Discontinued Medications Albuterol (Albut/Ipratrop 3mg/0.5mg Neb 3 Ml Vial) 3 ml NEB NOW STA; Protocol Stop: 04/07/25 17:40 Last Admin: 04/07/25 17:43 Dose: 3 ml Documented By: PRINCESS Aspirin (Aspirin Chew 324 Mg) 81 mg PO NOW STA Stop: 04/07/25 17:52 Last Admin: 04/07/25 18:03 Dose: 81 mg Documented By: PRINCESS Clopidogrel Bisulfate (Clopidogrel Bisulfate 75 Mg Tab) 75 mg PO NOW ONE Stop: 04/07/25 17:52 Last Admin: 04/07/25 18:03 Dose: 75 mg Documented By: PRINCESS Sodium Chloride (Nss) 500 mls @ 999 mls/hr IV .Q31M ONE Stop: 04/07/25 16:46 Last Infusion: 04/07/25 17:32 Dose: Infused Documented By: Admin: 04/07/25 16:27 Dose: 999 mls/hr Documented By: PRINCESS Ioversol (Optiray 320 125ml) 118 ml IV ONCE ONE Stop: 04/07/25 16:58 Last Admin: 04/07/25 16:57 Dose: 118 ml Documented By: STACEY Meclizine HCl (Meclizine Hcl 25 Mg Tab) 12.5 mg PO NOW STA Stop: 04/07/25 16:17 Last Admin: 04/07/25 16:26 Dose: 12.5 mg Documented By: PRINCESS Methylprednisolone (Methylprednisolone 125 Mg/2 Ml Vial) 80 mg IV NOW STA Stop: 04/07/25 16:17 Last Admin: 04/07/25 16:26 Dose: 80 mg Documented By: PRINCESS Ondansetron HCl (Ondansetron Inj 2 Mg/Ml 2 Ml Vial) 4 mg IV NOW STA Stop: 04/07/25 16:17 Last Admin: 04/07/25 16:26 Dose: 4 mg Documented By: PRINCESS Imaging Data Radiologist's Impression: Head CT 04/07/25 16:[address] without contrast CT angiogram of the neck CT angiogram of the brain with contrast Provided History: Vertigo Comparison: None Technique: HEAD CT: Using multidetector thin collimation helical acquisition technique, axial, coronal and sagittal CT images from the skull base to the vertex were obtained without intravenous contrast. HEAD and NECK CTA: During rapid bolus intravenous injection of nonionic contrast material, axial images were obtained using thin collimation multidetector helical technique from the base of the neck through the of vertex of the head. This CT angiogram data was reconstructed at thin intervals with mild overlap. 3D reconstructions were obtained. The axial source images, multiplanar reformations, 3D reconstructions in both maximum intensity projection display and volume rendered models were reviewed. Dose reduction techniques were achieved by using automatic exposure control and/or adjustment of mA and/or kV according to patient size and/or use of iterative reconstruction technique. Findings: Head CT: There is no intracranial hemorrhage, mass effect, or midline shift. Chronic infarct in the posterior right temporal lobe, otherwise the palumbo/white matter differentiation in both cerebral hemispheres is preserved. Ventricles are proportionate to the cerebral sulci. There is moderate fluid in the left maxillary sinus in the right sphenoid sinus. Head CTA demonstrates a short segment of high-grade stenosis of the proximal left CAN CAPPER, series 6 image 88. There is an approximately 3.5 mm length segment of the distal left M1 branch of high-grade stenosis, series 6 image 109. Neck CTA demonstrates irregular calcified and noncalcified atherosclerotic disease throughout both carotid bulbs extending into the proximal ICA. At the proximal left ICA there is a short segment of approximately 50% stenosis. There is also a short segment of approximately 50% stenosis of the proximal right ICA. The origins of the great vessels from the aortic arch are patent. No mass is noted within the visualized portions of the cervical soft tissues or lung apices. There is moderate emphysema. Impression: No evidence for large vessel occlusion on head CTA. There is a focal, short segment of high-grade stenosis of the proximal left CAN CAPPER, as well as high-grade stenosis for an approximate length of 3.5 mm in the distal left M1 branch. 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 Electronically signed by Jose Ortiz 04-07-2025 5:20 PM Head CTA 04/07/25 16:[address] without contrast CT angiogram of the neck CT angiogram of the brain with contrast Provided History: Vertigo Comparison: None Technique: HEAD CT: Using multidetector thin collimation helical acquisition technique, axial, coronal and sagittal CT images from the skull base to the vertex were obtained without intravenous contrast. HEAD and NECK CTA: During rapid bolus intravenous injection of nonionic contrast material, axial images were obtained using thin collimation multidetector helical technique from the base of the neck through the of vertex of the head. This CT angiogram data was reconstructed at thin intervals with mild overlap. 3D reconstructions were obtained. The axial source images, multiplanar reformations, 3D reconstructions in both maximum intensity projection display and volume rendered models were reviewed. Dose reduction techniques were achieved by using automatic exposure control and/or adjustment of mA and/or kV according to patient size and/or use of iterative reconstruction technique. Findings: Head CT: There is no intracranial hemorrhage, mass effect, or midline shift. Chronic infarct in the posterior right temporal lobe, otherwise the palumbo/white matter differentiation in both cerebral hemispheres is preserved. Ventricles are proportionate to the cerebral sulci. There is moderate fluid in the left maxillary sinus in the right sphenoid sinus. Head CTA demonstrates a short segment of high-grade stenosis of the proximal left CAN CAPPER, series 6 image 88. There is an approximately 3.5 mm length segment of the distal left M1 branch of high-grade stenosis, series 6 image 109. Neck CTA demonstrates irregular calcified and noncalcified atherosclerotic disease throughout both carotid bulbs extending into the proximal ICA. At the proximal left ICA there is a short segment of approximately 50% stenosis. There is also a short segment of approximately 50% stenosis of the proximal right ICA. The origins of the great vessels from the aortic arch are patent. No mass is noted within the visualized portions of the cervical soft tissues or lung apices. There is moderate emphysema. Impression: No evidence for large vessel occlusion on head CTA. There is a focal, short segment of high-grade stenosis of the proximal left CAN CAPPER, as well as high-grade stenosis for an approximate length of 3.5 mm in the distal left M1 branch. 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 Electronically signed by Jose Ortiz 04-07-2025 5:20 PM Neck CTA 04/07/25 16:[address] without contrast CT angiogram of the neck CT angiogram of the brain with contrast Provided History: Vertigo Comparison: None Technique: HEAD CT: Using multidetector thin collimation helical acquisition technique, axial, coronal and sagittal CT images from the skull base to the vertex were obtained without intravenous contrast. HEAD and NECK CTA: During rapid bolus intravenous injection of nonionic contrast material, axial images were obtained using thin collimation multidetector helical technique from the base of the neck through the of vertex of the head. This CT angiogram data was reconstructed at thin intervals with mild overlap. 3D reconstructions were obtained. The axial source images, multiplanar reformations, 3D reconstructions in both maximum intensity projection display and volume rendered models were reviewed. Dose reduction techniques were achieved by using automatic exposure control and/or adjustment of mA and/or kV according to patient size and/or use of iterative reconstruction technique. Findings: Head CT: There is no intracranial hemorrhage, mass effect, or midline shift. Chronic infarct in the posterior right temporal lobe, otherwise the palumbo/white matter differentiation in both cerebral hemispheres is preserved. Ventricles are proportionate to the cerebral sulci. There is moderate fluid in the left maxillary sinus in the right sphenoid sinus. Head CTA demonstrates a short segment of high-grade stenosis of the proximal left CAN CAPPER, series 6 image 88. There is an approximately 3.5 mm length segment of the distal left M1 branch of high-grade stenosis, series 6 image 109. Neck CTA demonstrates irregular calcified and noncalcified atherosclerotic disease throughout both carotid bulbs extending into the proximal ICA. At the proximal left ICA there is a short segment of approximately 50% stenosis. There is also a short segment of approximately 50% stenosis of the proximal right ICA. The origins of the great vessels from the aortic arch are patent. No mass is noted within the visualized portions of the cervical soft tissues or lung apices. There is moderate emphysema. Impression: No evidence for large vessel occlusion on head CTA. There is a focal, short segment of high-grade stenosis of the proximal left CAN CAPPER, as well as high-grade stenosis for an approximate length of 3.5 mm in the distal left M1 branch. 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 Electronically signed by Jose Ortiz 04-07-2025 5:20 PM Chest X-Ray 04/07/25 17:39 Chest radiograph, one view History: Chest pain Comparison: 09/20/2019 Findings: Single AP view of the chest performed. No focal consolidation or pleural effusion. No pneumothorax. Retrocardiac esophageal hiatal hernia. The cardiomediastinal silhouette is within normal limits. Normal pulmonary vascularity. No evidence for lymphadenopathy. No visualized bony or soft tissue abnormality. Impression: Hiatal hernia. Normal chest radiograph Electronically signed by Jose Ortiz 04-07-2025 6:59 PM Discharge Plan Visit Data Chief Complaint: Vertigo Stated Complaint: DIZZY ED Provider: [facility] Discharge Problem: Acute exacerbation of chronic obstructive pulmonary disease, Hypoxia, Vertigo, Thoracic compression fracture Patient Disposition: Admitted As Inpatient Condition: Good Discharge Instructions Interventions: ED Discharge Assessment Last Done: 04/07/25 20:14 Discharge Problem: Thoracic compression fracture Qualifiers: Encounter type: subsequent encounter Thoracic vertebra fracture level: T5 F racture healing: with routine healing Qualified Code(s): S22.050D - Wedge compression fracture of T5-T6 vertebra, subsequent encounter for fracture with routine healing
[2025-04-07] MEDS: ONDANSETRON INJ 2 MG/ML 2 ML VIAL IV STA (16:26)
[2025-04-07] MEDS: MECLIZINE HCL 25 MG TAB PO STA (16:26)
[2025-04-07] MEDS: methylPREDNISolone 125 MG/2 ML VIAL IV STA (16:26)
[2025-04-07] MEDS: SODIUM CHLORIDE 0.9% 500 ML IV ONE (16:27)
[2025-04-07 16:29] LABS: Basophils # (auto) 0.03 K/uL (0.00-0.20); Basophils % (auto) 0.4 %; Eosinophils # (auto) 0.51 K/uL (0.00-0.50); Hematocrit (blood only) 41.6 % (37.0-47.0); Hemoglobin 13.2 g/dl (12.0-16.0); Immature Granulocytes # (auto) 0.05 K/uL (0.01-0.20); Immature Granulocytes % (auto) 0.6 %; Lymphocytes # (auto) 3.17 K/uL (1.20-3.40); Lymphocytes % (auto) 37.6 %; Mean Corpuscular Hemoglobin 29.1 pg (25.0-34.0); Mean Corpuscular Hgb Conc 31.7 g/dL (32.0-36.0); Mean Corpuscular Volume 91.6 fL (80.0-100.0); Mean Platelet Volume 10.4 fL (9.4-12.4); Monocytes # (auto) 0.65 K/uL (0.11-0.59); Monocytes % (auto) 7.7 %; Neutrophils # (auto) 4.03 K/uL (1.40-6.50); Neutrophils % (auto) 47.7 %; Platelet Count 284 K/uL (130-400); RDW Coefficient of Variation 13.8 % (11.5-14.5); RDW Standard Deviation 46.7 fL (36.4-46.3); Red Blood Count 4.54 M/uL (4.20-5.40); White Blood Count 8.44 K/ul (4.8-10.8)
[2025-04-07 16:48] LABS: Albumin Globulin Ratio 0.9 (0.9-2); Albumin Level 3.7 gm/dl (3.4-5.0); BUN Creatinine Ratio 24.1 (10-20); Bilirubin,Total 0.5 mg/dl (0.2-1.0); Calcium 9.3 mg/dl (8.6-10.3); Creatinine Clr Calc Pharmacy 59.9 ml/min; Globulin 4.2 gm/dl (2.5-4.0); Total Protein 7.9 gm/dl (6.0-8.3)
[2025-04-07] MEDS: OPTIRAY 320 125ml IV ONE (16:57)
--- NOTE | 2025-04-07 17:21 | CT Scan Report ---
Head CT without contrast CT angiogram of the neck CT angiogram of the brain with contrast Provided History: Vertigo Comparison: None Technique: HEAD CT: Using multidetector thin collimation helical acquisition technique, axial, coronal and sagittal CT images from the skull base to the vertex were obtained without intravenous contrast. HEAD and NECK CTA: During rapid bolus intravenous injection of nonionic contrast material, axial images were obtained using thin collimation multidetector helical technique from the base of the neck through the of vertex of the head. This CT angiogram data was reconstructed at thin intervals with mild overlap. 3D reconstructions were obtained. The axial source images, multiplanar reformations, 3D reconstructions in both maximum intensity projection display and volume rendered models were reviewed. Dose reduction techniques were achieved by using automatic exposure control and/or adjustment of mA and/or kV according to patient size and/or use of iterative reconstruction technique. Findings: Head CT: There is no intracranial hemorrhage, mass effect, or midline shift. Chronic infarct in the posterior right temporal lobe, otherwise the palumbo/white matter differentiation in both cerebral hemispheres is preserved. Ventricles are proportionate to the cerebral sulci. There is moderate fluid in the left maxillary sinus in the right sphenoid sinus. Head CTA demonstrates a short segment of high-grade stenosis of the proximal left COMPLIANCE TESTING ANALYST, series 6 image 88. There is an approximately 3.5 mm length segment of the distal left M1 branch of high-grade stenosis, series 6 image 109. Neck CTA demonstrates irregular calcified and noncalcified atherosclerotic disease throughout both carotid bulbs extending into the proximal ICA. At the proximal left ICA there is a short segment of approximately 50% stenosis. There is also a short segment of approximately 50% stenosis of the proximal right ICA. The origins of the great vessels from the aortic arch are patent. No mass is noted within the visualized portions of the cervical soft tissues or lung apices. There is moderate emphysema. Impression: No evidence for large vessel occlusion on head CTA. There is a focal, short segment of high-grade stenosis of the proximal left COMPLIANCE TESTING ANALYST, as well as high-grade stenosis for an approximate length of 3.5 mm in the distal left M1 branch. 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 Electronically signed by Jose Ortiz 04-07-2025 5:20 PM
--- NOTE | 2025-04-07 17:21 | CT Scan Report ---
Head CT without contrast CT angiogram of the neck CT angiogram of the brain with contrast Provided History: Vertigo Comparison: None Technique: HEAD CT: Using multidetector thin collimation helical acquisition technique, axial, coronal and sagittal CT images from the skull base to the vertex were obtained without intravenous contrast. HEAD and NECK CTA: During rapid bolus intravenous injection of nonionic contrast material, axial images were obtained using thin collimation multidetector helical technique from the base of the neck through the of vertex of the head. This CT angiogram data was reconstructed at thin intervals with mild overlap. 3D reconstructions were obtained. The axial source images, multiplanar reformations, 3D reconstructions in both maximum intensity projection display and volume rendered models were reviewed. Dose reduction techniques were achieved by using automatic exposure control and/or adjustment of mA and/or kV according to patient size and/or use of iterative reconstruction technique. Findings: Head CT: There is no intracranial hemorrhage, mass effect, or midline shift. Chronic infarct in the posterior right temporal lobe, otherwise the palumob/white matter differentiation in both cerebral hemispheres is preserved. Ventricles are proportionate to the cerebral sulci. There is moderate fluid in the left maxillary sinus in the right sphenoid sinus. Head CTA demonstrates a short segment of high-grade stenosis of the proximal left AEROSPACE ENGINEER, series 6 image 88. There is an approximately 3.5 mm length segment of the distal left M1 branch of high-grade stenosis, series 6 image 109. Neck CTA demonstrates irregular calcified and noncalcified atherosclerotic disease throughout both carotid bulbs extending into the proximal ICA. At the proximal left ICA there is a short segment of approximately 50% stenosis. There is also a short segment of approximately 50% stenosis of the proximal right ICA. The origins of the great vessels from the aortic arch are patent. No mass is noted within the visualized portions of the cervical soft tissues or lung apices. There is moderate emphysema. Impression: No evidence for large vessel occlusion on head CTA. There is a focal, short segment of high-grade stenosis of the proximal left AEROSPACE ENGINEER, as well as high-grade stenosis for an approximate length of 3.5 mm in the distal left M1 branch. 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 Electronically signed by Jose Ortiz 04-07-2025 5:20 PM
[2025-04-07] MEDS: ALBUT/IPRATROP 3MG/0.5MG NEB 3 ML VIAL NEB STA (17:43)
[2025-04-07] MEDS: CLOPIDOGREL BISULFATE 75 MG TAB PO ONE (18:03)
[2025-04-07] MEDS: ASPIRIN CHEW 324 MG PO STA (18:03)
--- NOTE | 2025-04-07 18:59 | XRay Report ---
Chest radiograph, one view History: Chest pain Comparison: 09/20/2019 Findings: Single AP view of the chest performed. No focal consolidation or pleural effusion. No pneumothorax. Retrocardiac esophageal hiatal hernia. The cardiomediastinal silhouette is within normal limits. Normal pulmonary vascularity. No evidence for lymphadenopathy. No visualized bony or soft tissue abnormality. Impression: Hiatal hernia. Normal chest radiograph Electronically signed by Jose Ortiz 04-07-2025 6:59 PM
--- NOTE | 2025-04-07 19:13 | History & Physical Report ---
Date of Service April 07, 2025 Assessment & Plan (1) Acute severe vertigo: (2) Thoracic compression fracture: (3) COPD exacerbation: (4) GERD (gastroesophageal reflux disease): (5) Large hiatal hernia: (6) History of incisional hernia repair: (7) On home oxygen therapy: (8) Candidiasis of mouth and esophagus: Plan Very pleasant 84yo female with history of COPD, on night-time NC O2 - 2 liters; GERD; hyperlipidemia; hiatal hernia; history of incisional hernia repair 02/2025; and osteopenia presents with 2-3 days of vertigo. Patient reports that the vertigo spells are brought on by head movement. Symptoms last for about 1-2 minutes then resolve. Also c/o mid-thoracic back p ain as well as pulmonary symptoms & chest congestion. #acute vertigo - -patient denies vertigo in the past, but outpatient primary care notes indicate past h/o BPV -differential - BPV vs vestibular neuronitis vs [employer] cause; no symptoms to suggest Meniere's disease -r/o [employer] causes (stroke, etc) - obtain MRI brain -in meantime - meclizine 12.5mg scheduled TID -PT consult - request vestibular evaluation #thoracic compression fractures - -recent outpatient t-spine x-rays showed T5 compression fracture -she has been struggling with pain from this -no evidence of LE weakness or myelopathy on exam -obtained thoracic spine CT for more information -- T5 compression fracture is chronic, has acute fracture at T3 -plan: -steroids for COPD may help her back pain -schedule tylenol 650mg TID -lidoderm patches daily -miacalcin nasal spray daily -norco prn refractory pain -previous 25-OH vit D level was 53 in 2022 -consider TLSO brace -if pain remains refractory - ortho/spine consult? #COPD with exacerbation - -schedule nebs QID -schedule solumedrol 30mg IV q12h -mucinex bid -tessalon TID prn -cont home inhalers -checked COVID/flu/RSV -- negative -cxr without pneumonia #thrush/oral candidiasis - -likely due to chronic inhaled steroid use -nystatin solution QID - swish/spit #intra-cranial atherosclerosis - -CTA head/neck with ICA stenosis, and there is high grade stenosis of proximal left APPRENTICE LINEMAN THIRD STEP as well as high-grade stenosis of a distal left M1 branch -right temporal lobe infarct also seen -MRI brain will provide more information on old stroke -patient given aspirin in the ER - will cont such 81mg daily for secondary prevention -patient has never had a clinical stroke per records #peripheral neuropathy - -cont gabapentin #GERD / hiatal hernia - -cont PPI #DVT proph - -heparin 5000 BID #h/o recent incisional hernia repair - -February 2025 - the following was done by Dr Pichardo, [facility] [place] -Laparoscopic Explant of Old Mesh, Repair of Multiple Recurrent Hernias with Mesh, Extensive Enterolysis, partial omentectomy -she has a hernia in the lower midline abdomen -somewhat reducible on exam; nontender -no vomiting, still having stools -patient vague with how her abdomen looked post-op -is what I am seeing today another recurrent hernia? -did have post-op visit with Dr Dunbar in late February - no mention of recurrent hernia -will send message to him in am to see if he can recheck this History of Present Illness Chief Complaint: vertigo, severe back pain, chest congestion Primary Care Provider: Jessica Baum MD Very pleasant 84yo female with history of COPD, on night-time NC O2 - 2 liters; GERD; hyperlipidemia; hiatal hernia; history of incisional hernia repair 02/2025; and osteopenia presents with 2-3 days of vertigo. Patient reports that the vertigo spells are brought on by head movement. Symptoms last for about 1-2 minutes then resolve. She has been unsteady on her feet, holding onto gaston and furniture to brace herself during ambulation. Denies any nausea/emesis. Denies visual loss, visual field cuts, falls, tinnitus, or new onset hearing loss (uses hearing aids chronically). 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 When she woke up this am the vertigo was quite severe and she simply "didn't feel that good." Thus, she came to the ER to be evaluated. With respect to her mid-thoracic back pain she is quite vague about any injury or fall. During a primary care visit on 03/31/25 she complained of the pain and on 04/01/25 under thoracic x-rays showing a T5 compression fracture. When asked when the pain started she states that she injured her back in her bathroom at some point in the recent past but couldn't remember the exact timing. She denies any paresthesias of her torso/abdominal wall. Denies paresthesias or weakness of her legs. She has been taking tylenol for the back pain. Finally, she mentions she has had chest congestion for a few days. Due to the pain in her back she admits she can't take deep breaths adequately. Denies any fevers. She has had a cough but can't bring anything up. ER course - Received IV solumedrol 80mg x 1; meclizine 12.5mg x 1; 500cc of NS; zofran x 1; asa/plavix due to an old stroke seen on CT; and albuterol neb x 1. NC O2 was applied due to hypoxia (86% in room air). When I assessed her in the ER she reports that her vertigo and breathing were both improved. Allergies Allergy/AdvReac Type Severity Reaction Status Date / Time levofloxacin Allergy Intermediate Diarrhea Verified 03/16/25 14:24 Home Medications Medication Instructions Recorded Confirmed Type cyanocobalamin (vitamin B-12) 1,000 mcg PO QAM 02/17/19 04/07/25 History 1,000 mcg tablet (Vitamin B-12) multivitamin-ferrous 1 tab PO QAM 07/25/19 04/07/25 History fumarate-folic acid 18 mg-400 mcg tablet (Centrum) vit C 250 mg-vit E 90 mg-zinc 40 1 tab PO BID #60 caps 01/02/22 04/07/25 Rx mg-copper 1 [id number] capsule (PreserVision AREDS-2) Oxygen Home #1 ea 12/27/22 04/07/25 Rx Discontinue DME #1 ea 12/28/22 04/07/25 Rx ipratropium 0.5 mg-albuterol 3 mg 3 ml inhalation Q8H PRN shortness 01/12/23 04/07/25 Rx (2.5 mg base)/3 mL nebulization of breath or wheezing #810 mL soln lactobacillus combination no.8 3 3,000 mmu cells PO QAM 08/06/23 04/07/25 History billion cell capsule Flutter Valve #1 ea 12/31/23 04/07/25 Rx nebulizer accessories #2 ea 02/07/24 04/07/25 Rx albuterol sulfate 90 mcg/actuation 2 puff inhalation Q4H PRN 01/20/25 04/07/25 Rx aerosol inhaler (Ventolin HFA) shortness of breath or wheezing #3 Inhalers fluticasone fur. 200 mcg-umeclid 1 inh inhalation HS #3 Inhalers 01/28/25 04/07/25 Rx 62.5 mcg-vilant 25 mcg inhalat.powder (Trelegy Ellipta) gabapentin 300 mg capsule 300 mg PO HS 02/23/25 04/07/25 History (Neurontin) benzonatate 100 mg capsule 100 mg PO BID PRN cough #20 caps 03/01/25 04/07/25 Rx omeprazole 20 mg capsule,delayed 20 mg PO QAM #90 caps 03/15/25 04/07/25 Rx release Past Med/Surg History Problem List (Updated 04/08/25 @ 08:06 by Dominic Cohn MD) Candidiasis of mouth and esophagus Vertigo (Acute) Hypoxia (Acute) Acute exacerbation of chronic obstructive pulmonary disease (Acute) COPD exacerbation Thoracic compression fracture (Acute) Acute severe vertigo Mid back pain History of incisional hernia repair (02/26/25) Laparoscopic Explant of Old Mesh, Repair of Multiple Recurrent Hernias with Mesh, Extensive Enterolysis - Rios Pichardo, DO Hyperglycemia Chronic bronchitis Asthma-COPD overlap syndrome Multiple gastric polyps Hypervitaminosis D Dysphagia Obesity (BMI 30.0-34.9) Gait disturbance Ureterolithiasis COPD, moderate (Acute) Dyslipidemia (Acute) Low back pain (Acute) Osteopenia (Acute) PVC (premature ventricular contraction) (Acute) Peripheral neuropathy (Acute) Sensorineural hearing loss (Acute) Urge and stress incontinence (Acute) Vitamin B12 deficiency (Acute) GERD (gastroesophageal reflux disease) (Chronic) Medical History Epigastric pain Large hiatal hernia Lower extremity neuropathy Recurrent incisional hernia with incarceration Encounter for pre-operative examination Tubular adenoma of colon History of blood transfusion 2019 Epigastric pain Reason for 02/26/25 procedure Recurrent incisional hernia with incarceration Hiatal hernia Hearing loss wears bilateral hearing aids PVC (premature ventricular contraction) Osteopenia Urge and stress incontinence Hx of colonic polyps Lower extremity neuropathy History of gait disorder Cane PRN Dyslipidemia Hx Skin lesion of face GERD without esophagitis Lumbar compression fracture Per 10/2024 CTS, being medically managed per 01/28/25 PCP visit Kidney stones Umbilical hernia Chronic pain Left Leg On home oxygen therapy 2L O2 HS/PRN Asthma Vertigo Hx, no recent issues Tachycardia Hx, no recent issues Anemia Hx, PRBC Transfusion 2018 COPD (chronic obstructive pulmonary disease) 2L NC HS/PRN Surgical History History of tooth extraction Upper Denture History of bilateral cataract extraction History of appendectomy History of cystoscopy with stent insertion History of esophagogastroduodenoscopy (EGD) Hx of tonsillectomy Hx of varicose vein ligation and stripping History of bunionectomy of both great toes History of carpal tunnel surgery of right wrist History of colonoscopy (2024) History of carpal tunnel surgery of left wrist History of hernia surgery multiple History of cholecystectomy Family History Daughter Family history of ovarian cancer Ovarian cancer Cancer Brother Non Hodgkin's lymphoma COPD (chronic obstructive pulmonary disease) Father Emphysema lung Cancer age 63 Other Breast cancer Hypertension Leukemia No family history of adverse response to anesthesia Denies family history of Prostate cancer Myocardial infarction Colorectal cancer Social History Smoking Status: Never smoker Second Hand Exposure: No; Do You Dip or Chew Tobacco: No; Hx Alcohol Use: No Hx Substance Use: No Preferred Language: Welsh Communication Ability: Effective Communication Ability Comment: HARD OF HEARING - AIDES Visual Impairment: No Limitations Appointment Coordinator Required: No Beliefs That Will Affect Care: None marital status: / Current Living Situation: Family Current Living Situation Comment: Son current occupational status: retired 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[employer]; 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 How many Children do You have: 6 How many Children do You have Comment: 4 biological children; 2 stepchildren; 1 daughter is Other Information That Helps Us Care for You: No Feels Safe at Home: Yes during the past year weight has: remained stable Seatbelt Use: always Assistive Devices: Cane and Oxygen - at Night Review of Systems Review of Systems: gen - no fevers or chills; appetite - chronically low eyes - no visual field cuts HENT - no ear pain or tinnitus; chronic hearing loss with use of hearing aids; no nasal congestion CV - no chest pain, no palpitations, no edema pulm - congested in her chest, cough, wheezing; no dyspnea at rest GI - no abd pain or N/V; some diarrhea; no blood per rectum - no dysuria musculo - severe mid-thoracic back pain for uncertain period of time (see HPI) neuro - denies LE weakness; denies LE paresthesias; denies numbness/sensory impairment of torso/abdominal wall skin - no rash endo - denies diabetes Physical Exam Physical Exam: gen - pleasant, NAD, lying in bed comfortably; awake/alert eyes - PERRL; no horizontal nystagmus HENT - hearing aids in place b/l; nose clear; mouth - ?mild thrush plaques on tongue/buccal mucosa neck - no JVD, no thyroid mass or lymph nodes heart - tachy, s1 s2, no murmur lungs - mild end-exp wheezes; no increased work of breathing; scattered rales bases abd - soft, large hernia lower abdomen, firm to touch but nontender - mildly reducible; scars on abdominal wall; no HSM; BS+ ext - no edema, pulses 2+ b/l feet musculo - very tender mid-thoracic spine to palpation; no pain in c-spine or l- spine neuro - strength 5/5 x 4 exts; DTRs - no myelopathy; finger/nose/finger maneuver w/o dysmetria psych - awake, alert, oriented to person/place skin - no rash Results & Data Results & Data Vital Signs (Past 12 Hours) Vital Signs Temp Pulse Pulse Resp BP BP Pulse Ox 04/07/25 17:04 86 L 04/07/25 17:02 104 H 18 170/112 H 86 L 04/07/25 16:54 83 04/07/25 16:20 94 04/07/25 15:56 84 23 156/106 H 95 04/07/25 15:45 36.6 C 91 H 16 147/80 H 94 O2 Del Method 04/07/25 17:04 Room Air 04/07/25 17:02 Room Air 04/07/25 16:54 04/07/25 16:20 Room Air 04/07/25 15:56 Room Air 04/07/25 15:45 Room Air Laboratory Results Laboratory Results - last 24 hr 04/07/25 04/07/25 16:00 18:55 WBC 8.44 RBC 4.54 Hgb 13.2 Hct 41.6 MCV 91.6 MCH 29.1 MCHC 31.7 L RDW Std Deviation 46.7 H RDW Coeff of Michael 13.8 Plt Count 284 MPV 10.4 Immature Gran % (Auto) 0.6 Neut % (Auto) 47.7 Lymph % (Auto) 37.6 King % (Auto) 7.7 Eos % (Auto) 6.0 Baso % (Auto) 0.4 Neut # (Auto) 4.03 Lymph # (Auto) 3.17 King # (Auto) 0.65 H Eos # (Auto) 0.51 H Baso # (Auto) 0.03 Immature Gran # (Auto) 0.05 Sodium 138 Potassium 4.0 Chloride 99 Carbon Dioxide 35 H Anion Gap 4 BUN 14 Creatinine 0.58 L Est Cr Clr Drug Dosing 59.9 eGFR 88.63 BUN/Creatinine Ratio 24.1 H Glucose 122 H Calcium 9.3 Total Bilirubin 0.5 AST 17 ALT 10 Alkaline Phosphatase 97 Total Protein 7.9 Albumin 3.7 Globulin 4.2 H Albumin/Globulin Ratio 0.9 SARS-CoV-2 (PCR) NEGATIVE Influenza Type A (PCR) Negative Influenza Type B (PCR) Negative RSV (RT-PCR) Negative Diagnostic Findings Head CT 04/07/25 16:[address] without contrast CT angiogram of the neck CT angiogram of the brain with contrast Provided History: Vertigo Comparison: None Technique: HEAD CT: Using multidetector thin collimation helical acquisition technique, axial, coronal and sagittal CT images from the skull base to the vertex were obtained without intravenous contrast. HEAD and NECK CTA: During rapid bolus intravenous injection of nonionic contrast material, axial images were obtained using thin collimation multidetector helical technique from the base of the neck through the of vertex of the head. This CT angiogram data was reconstructed at thin intervals with mild overlap. 3D reconstructions were obtained. The axial source images, multiplanar reformations, 3D reconstructions in both maximum intensity projection display and volume rendered models were reviewed. Dose reduction techniques were achieved by using automatic exposure control and/or adjustment of mA and/or kV according to patient size and/or use of iterative reconstruction technique. Findings: Head CT: There is no intracranial hemorrhage, mass effect, or midline shift. Chronic infarct in the posterior right temporal lobe, otherwise the palumbo/white matter differentiation in both cerebral hemispheres is preserved. Ventricles are proportionate to the cerebral sulci. There is moderate fluid in the left maxillary sinus in the right sphenoid sinus. Head CTA demonstrates a short segment of high-grade stenosis of the proximal left APPRENTICE LINEMAN THIRD STEP, series 6 image 88. There is an approximately 3.5 mm length segment of the distal left M1 branch of high-grade stenosis, series 6 image 109. Neck CTA demonstrates irregular calcified and noncalcified atherosclerotic disease throughout both carotid bulbs extending into the proximal ICA. At the proximal left ICA there is a short segment of approximately 50% stenosis. There is also a short segment of approximately 50% stenosis of the proximal right ICA. The origins of the great vessels from the aortic arch are patent. No mass is noted within the visualized portions of the cervical soft tissues or lung apices. There is moderate emphysema. Impression: No evidence for large vessel occlusion on head CTA. There is a focal, short segment of high-grade stenosis of the proximal left APPRENTICE LINEMAN THIRD STEP, as well as high-grade stenosis for an approximate length of 3.5 mm in the distal left M1 branch. 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 Electronically signed by Jose Ortiz 04-07-2025 5:20 PM Head CTA 04/07/25 16:[address] without contrast CT angiogram of the neck CT angiogram of the brain with contrast Provided History: Vertigo Comparison: None Technique: HEAD CT: Using multidetector thin collimation helical acquisition technique, axial, coronal and sagittal CT images from the skull base to the vertex were obtained without intravenous contrast. HEAD and NECK CTA: During rapid bolus intravenous injection of nonionic contrast material, axial images were obtained using thin collimation multidetector helical technique from the base of the neck through the of vertex of the head. This CT angiogram data was reconstructed at thin intervals with mild overlap. 3D reconstructions were obtained. The axial source images, multiplanar reformations, 3D reconstructions in both maximum intensity projection display and volume rendered models were reviewed. Dose reduction techniques were achieved by using automatic exposure control and/or adjustment of mA and/or kV according to patient size and/or use of iterative reconstruction technique. Findings: Head CT: There is no intracranial hemorrhage, mass effect, or midline shift. Chronic infarct in the posterior right temporal lobe, otherwise the palumbo/white matter differentiation in both cerebral hemispheres is preserved. Ventricles are proportionate to the cerebral sulci. There is moderate fluid in the left maxillary sinus in the right sphenoid sinus. Head CTA demonstrates a short segment of high-grade stenosis of the proximal left APPRENTICE LINEMAN THIRD STEP, series 6 image 88. There is an approximately 3.5 mm length segment of the distal left M1 branch of high-grade stenosis, series 6 image 109. Neck CTA demonstrates irregular calcified and noncalcified atherosclerotic disease throughout both carotid bulbs extending into the proximal ICA. At the proximal left ICA there is a short segment of approximately 50% stenosis. There is also a short segment of approximately 50% stenosis of the proximal right ICA. The origins of the great vessels from the aortic arch are patent. No mass is noted within the visualized portions of the cervical soft tissues or lung apices. There is moderate emphysema. Impression: No evidence for large vessel occlusion on head CTA. There is a focal, short segment of high-grade stenosis of the proximal left APPRENTICE LINEMAN THIRD STEP, as well as high-grade stenosis for an approximate length of 3.5 mm in the distal left M1 branch. 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 Electronically signed by Jose Ortiz 04-07-2025 5:20 PM Neck CTA 04/07/25 16:[address] without contrast CT angiogram of the neck CT angiogram of the brain with contrast Provided History: Vertigo Comparison: None Technique: HEAD CT: Using multidetector thin collimation helical acquisition technique, axial, coronal and sagittal CT images from the skull base to the vertex were obtained without intravenous contrast. HEAD and NECK CTA: During rapid bolus intravenous injection of nonionic contrast material, axial images were obtained using thin collimation multidetector helical technique from the base of the neck through the of vertex of the head. This CT angiogram data was reconstructed at thin intervals with mild overlap. 3D reconstructions were obtained. The axial source images, multiplanar reformations, 3D reconstructions in both maximum intensity projection display and volume rendered models were reviewed. Dose reduction techniques were achieved by using automatic exposure control and/or adjustment of mA and/or kV according to patient size and/or use of iterative reconstruction technique. Findings: Head CT: There is no intracranial hemorrhage, mass effect, or midline shift. Chronic infarct in the posterior right temporal lobe, otherwise the palumbo/white matter differentiation in both cerebral hemispheres is preserved. Ventricles are proportionate to the cerebral sulci. There is moderate fluid in the left maxillary sinus in the right sphenoid sinus. Head CTA demonstrates a short segment of high-grade stenosis of the proximal left APPRENTICE LINEMAN THIRD STEP, series 6 image 88. There is an approximately 3.5 mm length segment of the distal left M1 branch of high-grade stenosis, series 6 image 109. Neck CTA demonstrates irregular calcified and noncalcified atherosclerotic disease throughout both carotid bulbs extending into the proximal ICA. At the proximal left ICA there is a short segment of approximately 50% stenosis. There is also a short segment of approximately 50% stenosis of the proximal right ICA. The origins of the great vessels from the aortic arch are patent. No mass is noted within the visualized portions of the cervical soft tissues or lung apices. There is moderate emphysema. Impression: No evidence for large vessel occlusion on head CTA. There is a focal, short segment of high-grade stenosis of the proximal left APPRENTICE LINEMAN THIRD STEP, as well as high-grade stenosis for an approximate length of 3.5 mm in the distal left M1 branch. 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 Electronically signed by Jose Ortiz 04-07-2025 5:20 PM Chest X-Ray 04/07/25 17:39 Chest radiograph, one view History: Chest pain Comparison: 09/20/2019 Findings: Single AP view of the chest performed. No focal consolidation or pleural effusion. No pneumothorax. Retrocardiac esophageal hiatal hernia. The cardiomediastinal silhouette is within normal limits. Normal pulmonary vascularity. No evidence for lymphadenopathy. No visualized bony or soft tissue abnormality. Impression: Hiatal hernia. Normal chest radiograph Electronically signed by Jose Ortiz 04-07-2025 6:[address] 04/07/25 19:31 Exam(s): CT T SPINE EXAM: CT Thoracic Spine Without Intravenous Contrast CLINICAL HISTORY: Reason for exam: T5 compr. fracture; assess 4 retropulsion, etc. TECHNIQUE: Axial computed tomography images of the thoracic spine without intravenous contrast. Automated exposure control was utilized for the study. A dose lowering technique was utilized adhering to the principles of ALARA. COMPARISON: None. FINDINGS: Vertebrae: T3 compression deformity moderate in severity, with minimal retropulsion of the inferior endplate. Nondisplaced fracture involves the posterior elements, junction of the spinolaminar region bilaterally. MRI thoracic spine for further evaluation T5 compression deformity is chronic. Probable osteoporosis. Discs/spinal canal/neural foramina: No osseous central spinal stenosis. Moderate diffuse degenerative disc disease. Soft tissues: Large hiatal hernia. Ectatic aorta. IMPRESSION: 1. T3 compression fracture, likely acute, also involves the posterior elements. Minimal retropulsion inferior endplate. MRI thoracic spine recommended for further evaluation. 2. T5 fracture is chronic. 3. Osteoporosis and degenerative change. 4. Large hiatal hernia. Electronically signed by: Paula Patel M.D. 04/07/25 21:11 PM Code Status & VTE Plan Code Status full PG Care Time/CCT Total # of Minutes Spent Total Time Spent with Patient: Total time spent is greater than 50% in coordination of care (as documented) at patient's floor/unit and/or counseling patient: Coding Level of Care Code 25098 INT INP/OBS CARE 3/75MIN Diagnoses Acute severe vertigo R42 Thoracic compression fracture S22.000A COPD exacerbation J44.1 GERD (gastroesophageal reflux disease) K21.9 Large hiatal hernia K44.9 History of incisional hernia repair Z98.890; Z87.19 On home oxygen therapy Z99.81 Candidiasis of mouth and esophagus B37.81; B37.0
[2025-04-07 20:18] LABS: Influenza A virus by PCR Negative (Neg); Influenza B virus by PCR Negative (Neg); RSV by PCR Negative (Neg); SARS CoV2 RNA(COVID-19) Ceph NEGATIVE (Negative)
[2025-04-07] MEDS ORDERED: BENZONATATE 100 MG CAPSULE PO PRN (20:52)
[2025-04-07] MEDS ORDERED: ALBUTEROL HFA 8 GM INHALER INH PRN (20:52)
[2025-04-07] MEDS ORDERED: ONDANSETRON INJ 2 MG/ML 2 ML VIAL IV PRN (20:52)
[2025-04-07] MEDS ORDERED: HYDROCODONE/ACETAMOPHEN 5/325MG TAB PO PRN (20:59)
[2025-04-07] MEDS ORDERED: NON-FORMULARY MEDICATION (Fluticasone-Umeclidin-Vilanter [Trelegy Ellipta] 200-62.5-25 mcg INH SCH (21:00)
--- NOTE | 2025-04-07 21:12 | CT Scan Report ---
Exam(s): CT T SPINE EXAM: CT Thoracic Spine Without Intravenous Contrast CLINICAL HISTORY: Reason for exam: T5 compr. fracture; assess 4 retropulsion, etc. TECHNIQUE: Axial computed tomography images of the thoracic spine without intravenous contrast. Automated exposure control was utilized for the study. A dose lowering technique was utilized adhering to the principles of ALARA. COMPARISON: None. FINDINGS: Vertebrae: T3 compression deformity moderate in severity, with minimal retropulsion of the inferior endplate. Nondisplaced fracture involves the posterior elements, junction of the spinolaminar region bilaterally. MRI thoracic spine for further evaluation T5 compression deformity is chronic. Probable osteoporosis. Discs/spinal canal/neural foramina: No osseous central spinal stenosis. Moderate diffuse degenerative disc disease. Soft tissues: Large hiatal hernia. Ectatic aorta. IMPRESSION: 1. T3 compression fracture, likely acute, also involves the posterior elements. Minimal retropulsion inferior endplate. MRI thoracic spine recommended for further evaluation. 2. T5 fracture is chronic. 3. Osteoporosis and degenerative change. 4. Large hiatal hernia. Electronically signed by: Paula Patel M.D. 04/07/25 21:11 PM
[2025-04-07] MEDS: GABAPENTIN 300 MG CAP PO SCH (22:16)
[2025-04-07] MEDS: CALCITONIN SALMON NA 200 IU/AC 3.7 ML BTL SCH (22:16)
[2025-04-07] MEDS: LIDOCAINE 5% 1 PATCH TD SCH (22:17)
[2025-04-07] MEDS: guaiFENesin 600 MG TABCR PO SCH (22:17)
[2025-04-07] MEDS: NYSTATIN SUSP 500,000 U/5 ML UDC PO SCH (22:19)
[2025-04-07] MEDS: MECLIZINE 12.5 MG TAB PO SCH (22:19)
[2025-04-07] MEDS: CEROVITE ADV FORMULA TAB PO SCH (22:19)
[2025-04-07] MEDS: ACETAMINOPHEN 325 MG TAB PO SCH (22:24)
[2025-04-08] MEDS: ALBUT/IPRATROP 3MG/0.5MG NEB 3 ML VIAL INH SCH (07:31)
[2025-04-08] MEDS ORDERED: methylPREDNISolone 125 MG/2 ML VIAL IV SCH (09:00)
[2025-04-08] MEDS: ASPIRIN 81 MG ECTAB PO SCH (09:50)
[2025-04-08] MEDS: methylPREDNISolone 30 MG in SYRINGE 0 ML IV SCH (09:50)
[2025-04-08] MEDS: ADVANCED PROBIOTIC 625 MG CAPSULE PO SCH (09:50)
[2025-04-08] MEDS: MULTIVITAMIN TAB PO SCH (09:51)
[2025-04-08] MEDS: UMECLIDINIUM/VILANTEROL 62.5/25MCG 7 PUFFS/INHALER INH SCH (09:51)
[2025-04-08] MEDS: FLUTICASONE FUROATE 100MCG 14 PUFFS/INHALER INH SCH (09:51)
[2025-04-08] MEDS: CYANOCOBALAMIN (B-12) 500 MCG TABLET PO SCH (09:51)
[2025-04-08] MEDS: PANTOprazole 40 MG TAB PO SCH (09:51)
[2025-04-08] MEDS: HEPARIN SOD 5,000 UNIT/0.5 ML VIAL SQ SCH (09:56)
[2025-04-08] MEDS: LORazepam 0.5 MG TAB PO STA (13:02)
--- NOTE | 2025-04-08 13:27 | Hospitalist Progress Note ---
Date of Service April 08, 2025 Assessment & Plan (1) Acute severe vertigo: Plan: Probably from acute labyrinthitis. She has improved with scheduled dosing of meclizine and Solu-Medrol. Brain MRI scan is ordered and pending to rule out midbrain CVA. Supportive care (2) Thoracic compression fracture: Plan: New T3 fracture seen on imaging. The patient has minimal symptoms at this time. Orthopedic spine consultation has been requested (3) COPD exacerbation: Plan: Improved with parenteral steroids and nebulizer treatments. (4) History of incisional hernia repair: Plan: She may have a recurrent incisional ventral hernia. Surgery will reassess (5) Candidiasis of mouth and esophagus: Plan: Nystatin suspension has been ordered. Most likely due to inhaled steroid use Plan Hopeful discharge to home if brain MRI scan is negative possibly tomorrow, April 09 Admission and Anticipated Discharge Date Admission Date: April 07, 2025 Subjective Alert and oriented. Hard of hearing. She is feisty. No acute distress. Brain MRI scan is pending to rule out midbrain CVA causing the vertigo but she states she has improved since being treated with Solu-Medrol and meclizine. She recently had repair of her ventral hernia and general surgery will reevaluate the protruding mass in the mid abdomen that the patient states has been present since surgery. She has a new T3 compression fracture and orthopedic spine consult has been requested. Review of Systems 2 Review of Systems: Constitutionalno fever or chills ENTno blurred vision, no double vision, no epistaxis, no sore throat Respiratoryno cough, no wheezing, no shortness of breath Cardiacno palpitations, no chest pain, no syncope Rubia nausea, vomiting, diarrhea, melena, hematochezia GUno urinary retention, no urinary incontinence, no dysuria, no hematuria Musculoskeletalmild mid back discomfort. No muscle tenderness Skinno bruising, no rashes, no pruritus Neurovertigo symptoms have lessened. No paresthesia, no weakness Psychno depression, no anxiety Physical Exam 2 Physical Exam: General-alert and oriented x3, no fever, no chills HEENT-head atraumatic and normocephalic, pupils equal and reactive to light, extraocular muscles intact Neck-no lymphadenopathy or thyromegaly, trachea midline Chest-clear to auscultation. No rales, wheezing or rhonchi Cardiac-regular rate and rhythm, normal S1 and S2 Abdomen-normal bowel sounds, no hepatosplenomegaly. She appears to have a ventral hernia that is nontender with no overlying erythema. Extremities-no cyanosis, clubbing, or edema Neuro-cranial nerves II through XII intact, she does have mild nystagmus. Motor and sensory function within normal limits, strength symmetrical, no focal deficits. Psych-normal affect, normal mood Results & Data Results & Data Vital Signs (Past 12 Hours) Vital Signs Temp Pulse Pulse Pulse Resp BP BP 04/08/25 11:15 88 18 04/08/25 10:54 04/08/25 10:31 36.3 C L 95 H 18 125/69 04/08/25 07:32 86 18 04/08/25 07:28 90 04/08/25 03:09 36.6 C 81 16 108/71 Pulse Ox O2 Del Method O2 Flow Rate 04/08/25 11:15 94 Nasal Cannula 2 04/08/25 10:54 Room Air 04/08/25 10:31 91 Room Air 04/08/25 07:32 93 Nasal Cannula 2 04/08/25 07:28 04/08/25 03:09 95 Nasal Cannula Laboratory Results 04/07/25 16:00 04/07/25 16:00 PG Care Time/CCT Total # of Minutes Spent Total Time Spent with Patient: Total time spent is greater than 50% in coordination of care (as documented) at patient's floor/unit and/or counseling patient: Coding Level of Care Code 64831 SUB INP/OBS CARE 3/50MIN Diagnoses Acute severe vertigo R42 Thoracic compression fracture S22.050D Encounter type: subsequent encounter Fracture healing: with routine healing Thoracic vertebra fracture level: T5 COPD exacerbation J44.1 History of incisional hernia repair Z98.890; Z87.19 Candidiasis of mouth and esophagus B37.81; B37.0 (2) Thoracic compression fracture Encounter type: subsequent encounter Fracture healing: with routine healing Thoracic vertebra fracture level: T5 Qualified Code(s): S22.050D - Wedge compression fracture of T5-T6 vertebra, subsequent encounter for fracture with routine healing
--- NOTE | 2025-04-08 13:42 | Electrocardiogram Report ---
Test Reason : Blood Pressure : */* mmHG Vent. Rate : 82 BPM Atrial Rate : 82 BPM P-R Int : 144 ms QRS Dur : 78 ms QT Int : 364 ms P-R-T Axes : 87 -10 -1 degrees QTcB Int : 425 ms Normal sinus rhythm Normal ECG When compared with ECG of 24-Feb-2025 12:41, No significant change was found Confirmed by Jose Guerra ([id number]) on 04/08/2025 1:41:40 PM Referred By: Confirmed By: Jose Guerra
--- NOTE | 2025-04-08 14:16 | Magnetic Resonance Report ---
MR brain wo con HISTORY: 84 years-old Female acute vertigo; abnormal CTA head acute vertigo COMPARISON: Head CT 04/07/2025 TECHNIQUE: Multiplanar multisequence MRI of the brain was obtained without IV contrast FINDINGS: No restricted diffusion to suggest an acute or subacute infarct. Midline structures appear unremarkab le. The study is motion degraded. Degenerative changes of the cervical spine. Involutional changes wi th mild to moderate scattered T2/FLAIR hyperintense foci throughout the white matter suggestive of ch ronic microvascular ischemic disease. Encephalomalacia and gliosis within the right temporal parietal lobes suggestive of a chronic infarct. There is no acute intracranial hemorrhage, midline shift, abnormal extra-axial collection, hydrocepha josafat or intra-axial mass. Hyperostosis frontalis interna with heterogeneity of the calvarium. The cere bral venous sinuses and major arterial flow voids appear patent. Prior bilateral lens repair. Trace r ight and large left mastoid effusions. There is severe opacification of the left maxillary sinus with air-fluid levels. Moderate opacification with air-fluid level in the right sphenoid sinus suggestive of acute sinusitis. IMPRESSION: 1. No acute intracranial abnormality. No acute or subacute infarct. 2. Involutional changes with chronic microvascular ischemic disease. 3. Chronic right cerebral infarct. 4. Acute sinus disease. 5. Large left mastoid effusion. ACT 112: Negative or not required by law. The above report was generated using voice recognition software. It may contain grammatical, syntax o r spelling errors. Electronically signed by: Miguelito Betancourt M.D. 04/08/2025 2:15 PM
[2025-04-09 08:12] VITALS: TEMP 98.1
--- NOTE | 2025-04-09 10:44 | Orthopedic Consultation ---
Date of Service April 09, 2025 Assessment & Plan (1) Thoracic compression fracture: Plan Discussed cervico-thoracic brace, but also that w/ her age and comorbidities, it is actually not recommended in her case. Patient's son did also not like a brace that the patient previously had with the T5 fracture, saying that it was more cumbersome to her than anything else, so they really never did use that previously. With the patient's COPD, would expect that there will certainly be times of coughing, and the patient's son is concerned that she is holding back on coughing deeply, so is not expectorating as she normally would. It is felt that a brace would just make this scenario worse. So, it is agreed that we will forego a brace in this situation. I recommend the patient be continued on current pain regimen, as her pain symptoms seem to be quite well-controlled at this point. Discussed with patient and her son that we will have her follow-up in 2 weeks w/ Dr. Lezama in the [facility] orthospine clinic for thoracic spine x-rays and checkup. History of Present Illness Reason for Consultation: T3 Fx Requesting Physician: . Attending Physician: Eloy Menjivar MD ED provider note 04/07/2025: Patient presents due to concern for vertigo. The patient states that over the last several days that she has feeling as though she is spinning or that the room is spinning with changes in position that she sticks with turning her head. The patient does have a prior history but states that seems to be worse as she was having some ambulatory dysfunction needing to hold onto things in order to walk and not fall. Patient denies any head or neck pain. Patient reportedly has had some upper back pain with [id number] and feels as though it worsens with coughing the patient did have a recent x-ray. Review of this shows that the patient does have a T5 fracture. Patient denies any chest pains or shortness of breath. Known history of COPD. Patient is accompanied by her son. She lives with the son. No change in elevation underwater activities no ear pain tinnitus or worsening hearing issues. Hospitalist note 04/07/2025: Very pleasant 84yo female with history of COPD, on night-time NC O2 - 2 liters; GERD; hyperlipidemia; hiatal hernia; history of incisional hernia repair 02/2025; and osteopenia presents with 2-3 days of vertigo. Patient reports that the vertigo spells are brought on by head movement. Symptoms last for about 1-2 minutes then resolve. She has been unsteady on her feet, holding onto gaston and furniture to brace herself during ambulation. Denies any nausea/emesis. Denies visual loss, visual field cuts, falls, tinnitus, or new onset hearing loss (uses hearing aids chronically). 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 When she woke up this am the vertigo was quite severe and she simply "didn't feel that good." Thus, she came to the ER to be evaluated. With respect to her mid-thoracic back pain she is quite vague about any injury or fall. During a primary care visit on 03/31/25 she complained of the pain and on 04/01/25 under thoracic x-rays showing a T5 compression fracture. When asked when the pain started she states that she injured her back in her bathroom at some point in the recent past but couldn't remember the exact timing. She denies any paresthesias of her torso/abdominal wall. Denies paresthesias or weakness of her legs. She has been taking tylenol for the back pain. Finally, she mentions she has had chest congestion for a few days. Due to the pain in her back she admits she can't take deep breaths adequately. Denies any fevers. She has had a cough but can't bring anything up. ER course - Received IV solumedrol 80mg x 1; meclizine 12.5mg x 1; 500cc of NS; zofran x 1; asa/plavix due to an old stroke seen on CT; and albuterol neb x 1. NC O2 was applied due to hypoxia (86% in room air). When I assessed her in the ER she reports that her vertigo and breathing were both improved Today, patient and her son are reporting that she really is not having any pain to her upper thoracic spine when at rest, but rather when she coughs deeply. She does have COPD, so she does get into some bouts of coughing at times, so has been attempting to not do so as forcefully. They report that she has had a previous T5 compression fracture, and understand that this is an old fracture, whereas the T3 compression fracture is noted to be new as of the thoracic spine CT scan that was done on 04/07 when compared to prior imaging studies. Patient does admit that her pain seems to be higher up than the previous T5 fracture site location when she has to cough. She denies any particular weakness in the upper or lower extremities. Patient is having no bowel or bladder incontinence issues. Patient's vertigo symptoms are reported to be likely due to acute labyrinthitis. However, she has reportedly already improved with use of meclizine and Solu-Medrol. Allergies Allergy/AdvReac Type Severity Reaction Status Date / Time levofloxacin Allergy Intermediate Diarrhea Verified 03/16/25 14:24 Home Medications Medication Instructions Recorded Confirmed Type cyanocobalamin (vitamin B-12) 1,000 mcg PO QAM 02/17/19 04/07/25 History 1,000 mcg tablet (Vitamin B-12) multivitamin-ferrous 1 tab PO QAM 07/25/19 04/07/25 History fumarate-folic acid 18 mg-400 mcg tablet (Centrum) vit C 250 mg-vit E 90 mg-zinc 40 1 tab PO BID #60 caps 01/02/22 04/07/25 Rx mg-copper 1 cc-hixrxo-uokrki capsule (PreserVision AREDS-2) Oxygen Home #1 ea 12/27/22 04/07/25 Rx Discontinue DME #1 ea 12/28/22 04/07/25 Rx ipratropium 0.5 mg-albuterol 3 mg 3 ml inhalation Q8H PRN shortness 01/12/23 04/07/25 Rx (2.5 mg base)/3 mL nebulization of breath or wheezing #810 mL soln lactobacillus combination no.8 3 3,000 mmu cells PO QAM 08/06/23 04/07/25 History billion cell capsule Flutter Valve #1 ea 12/31/23 04/07/25 Rx nebulizer accessories #2 ea 02/07/24 04/07/25 Rx albuterol sulfate 90 mcg/actuation 2 puff inhalation Q4H PRN 01/20/25 04/07/25 Rx aerosol inhaler (Ventolin HFA) shortness of breath or wheezing #3 Inhalers fluticasone fur. 200 mcg-umeclid 1 inh inhalation HS #3 Inhalers 01/28/25 04/07/25 Rx 62.5 mcg-vilant 25 mcg inhalat.powder (Trelegy Ellipta) gabapentin 300 mg capsule 300 mg PO HS 02/23/25 04/07/25 History (Neurontin) benzonatate 100 mg capsule 100 mg PO BID PRN cough #20 caps 03/01/25 04/07/25 Rx omeprazole 20 mg capsule,delayed 20 mg PO QAM #90 caps 03/15/25 04/07/25 Rx release meclizine 12.5 mg tablet 12.5 mg PO TID #6 tabs 04/09/25 Rx prednisone 10 mg tablet See Rx Instructions .Route 04/09/25 Rx .COMPLEX #12 tabs Past Med/Surg History Problem List Thoracic compression fracture (Acute ~04/07/25) Candidiasis of mouth and esophagus Vertigo (Acute) Hypoxia (Acute) Acute exacerbation of chronic obstructive pulmonary disease (Acute) COPD exacerbation Thoracic compression fracture (Acute) Acute severe vertigo Mid back pain History of incisional hernia repair (02/26/25) Laparoscopic Explant of Old Mesh, Repair of Multiple Recurrent Hernias with Mesh, Extensive Enterolysis - Rios Pichardo, DO Hyperglycemia Chronic bronchitis Asthma-COPD overlap syndrome Multiple gastric polyps Hypervitaminosis D Dysphagia Obesity (BMI 30.0-34.9) Gait disturbance Ureterolithiasis COPD, moderate (Acute) Dyslipidemia (Acute) Low back pain (Acute) Osteopenia (Acute) PVC (premature ventricular contraction) (Acute) Peripheral neuropathy (Acute) Sensorineural hearing loss (Acute) Urge and stress incontinence (Acute) Vitamin B12 deficiency (Acute) GERD (gastroesophageal reflux disease) (Chronic) Medical History Epigastric pain Large hiatal hernia Lower extremity neuropathy Recurrent incisional hernia with incarceration Encounter for pre-operative examination Tubular adenoma of colon History of blood transfusion 2019 Epigastric pain Reason for 02/26/25 procedure Recurrent incisional hernia with incarceration Hiatal hernia Hearing loss wears bilateral hearing aids PVC (premature ventricular contraction) Osteopenia Urge and stress incontinence Hx of colonic polyps Lower extremity neuropathy History of gait disorder Cane PRN Dyslipidemia Hx Skin lesion of face GERD without esophagitis Lumbar compression fracture Per 10/2024 CTS, being medically managed per 01/28/25 PCP visit Kidney stones Umbilical hernia Chronic pain Left Leg On home oxygen therapy 2L O2 HS/PRN Asthma Vertigo Hx, no recent issues Tachycardia Hx, no recent issues Anemia Hx, PRBC Transfusion 2018 COPD (chronic obstructive pulmonary disease) 2L NC HS/PRN Surgical History History of tooth extraction Upper Denture History of bilateral cataract extraction History of appendectomy History of cystoscopy with stent insertion History of esophagogastroduodenoscopy (EGD) Hx of tonsillectomy Hx of varicose vein ligation and stripping History of bunionectomy of both great toes History of carpal tunnel surgery of right wrist History of colonoscopy (2024) History of carpal tunnel surgery of left wrist History of hernia surgery multiple History of cholecystectomy Family History Daughter Family history of ovarian cancer Ovarian cancer Cancer Brother Non Hodgkin's lymphoma COPD (chronic obstructive pulmonary disease) Father Emphysema lung Cancer age 63 Other Breast cancer Hypertension Leukemia No family history of adverse response to anesthesia Denies family history of Prostate cancer Myocardial infarction Colorectal cancer Social History Smoking Status: Never smoker Second Hand Exposure: No; Do You Dip or Chew Tobacco: No; Hx Alcohol Use: No Hx Substance Use: No Preferred Language: French Communication Ability: Effective Communication Ability Comment: HARD OF HEARING - AIDES Visual Impairment: No Limitations Bulk Intake Worker Required: No Beliefs That Will Affect Care: None marital status: / Current Living Situation: Family Current Living Situation Comment: Son current occupational status: retired 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 Physical Exam GENERAL: Speech and cognition is intact. Mood and affect is appropriate. In no acute distress. HEAD: Normocephalic; atraumatic. NECK: Trachea is midline; + TTP to upper thoracic spine; no cervical lymphadenopathy. CHEST: Regular chest respiration and excursion. Patient does seem to hold back coughs at times. EXTREMITIES: +5 strength of upper extremities. No TTP. Distal sensation and pulses intact bilaterally.Negative clonus bilaterally NEURO: CN II-XII grossly intact with no focal deficits noted. C5 - C8 w/ intact sensation bilaterally. SKIN: No lesions, erythema, or rashes noted. Upper extremity resisted strength testing: R elbow flexion - 5/5 L elbow flexion - 5/5 R elbow extension - 5/5 L elbow extension - 5/5 R shoulder abduction - 5/5 L shoulder abduction - 5/5 R wrist extension - 5/5 L wrist extension - 5/5 R wrist flexion - 5/5 L wrist flexion - 5/5 R hand intrinsics - 5/5 L hand intrinsics - 5/5 LOWER EXTREMITIES: R Hip flexion 5/5; knee extension 5/5; knee flexion 5/5; ankle dorsiflexion 5/5; ankle plantar flexion 5/5; EHL 5/5 L Hip flexion 5/5; knee extension 5/5; knee flexion 5/5; ankle dorsiflexion 5/5; ankle plantar flexion 5/5; EHL 5/5 Results & Data Results & Data Laboratory Results Laboratory Results - last 48 hr 04/07/25 04/07/25 16:00 18:55 WBC 8.44 RBC 4.54 Hgb 13.2 Hct 41.6 MCV 91.6 MCH 29.1 MCHC 31.7 L RDW Std Deviation 46.7 H RDW Coeff of Michael 13.8 Plt Count 284 MPV 10.4 Immature Gran % (Auto) 0.6 Neut % (Auto) 47.7 Lymph % (Auto) 37.6 King % (Auto) 7.7 Eos % (Auto) 6.0 Baso % (Auto) 0.4 Neut # (Auto) 4.03 Lymph # (Auto) 3.17 King # (Auto) 0.65 H Eos # (Auto) 0.51 H Baso # (Auto) 0.03 Immature Gran # (Auto) 0.05 Sodium 138 Potassium 4.0 Chloride 99 Carbon Dioxide 35 H Anion Gap 4 BUN 14 Creatinine 0.58 L Est Cr Clr Drug Dosing 59.9 eGFR 88.63 BUN/Creatinine Ratio 24.1 H Glucose 122 H Calcium 9.3 Total Bilirubin 0.5 AST 17 ALT 10 Alkaline Phosphatase 97 Total Protein 7.9 Albumin 3.7 Globulin 4.2 H Albumin/Globulin Ratio 0.9 SARS-CoV-2 (PCR) NEGATIVE Influenza Type A (PCR) Negative Influenza Type B (PCR) Negative RSV (RT-PCR) Negative Diagnostic Findings Thoracic Spine CT 04/07/25 19:31 Exam(s): CT T SPINE EXAM: CT Thoracic Spine Without Intravenous Contrast CLINICAL HISTORY: Reason for exam: T5 compr. fracture; assess 4 retropulsion, etc. TECHNIQUE: Axial computed tomography images of the thoracic spine without intravenous contrast. Automated exposure control was utilized for the study. A dose lowering technique was utilized adhering to the principles of ALARA. COMPARISON: None. FINDINGS: Vertebrae: T3 compression deformity moderate in severity, with minimal retropulsion of the inferior endplate. Nondisplaced fracture involves the posterior elements, junction of the spinolaminar region bilaterally. MRI thoracic spine for further evaluation T5 compression deformity is chronic. Probable osteoporosis. Discs/spinal canal/neural foramina: No osseous central spinal stenosis. Moderate diffuse degenerative disc disease. Soft tissues: Large hiatal hernia. Ectatic aorta. IMPRESSION: 1. T3 compression fracture, likely acute, also involves the posterior elements. Minimal retropulsion inferior endplate. MRI thoracic spine recommended for further evaluation. 2. T5 fracture is chronic. 3. Osteoporosis and degenerative change. 4. Large hiatal hernia. Electronically signed by: Paula Patel M.D. 04/07/25 21:11 PM PG Care Time/CCT Total # of Minutes Spent Total Time Spent with Patient: Total time spent is greater than 50% in coordination of care (as documented) at patient's floor/unit and/or counseling patient: [place] [address] IN/OBS CONSULT LVL 5,80M Patient Type New History Expanded Problem Focused Exam Expanded Problem Focused Medical Decision Making Moderate Complexity Diagnoses Thoracic compression fracture S22.000A
--- NOTE | 2025-04-09 10:49 | Discharge Summary ---
Discharge Summary Date of Service April 09, 2025 Principal Dx & Hospital Course #1 = Principal Diagnosis (1) Acute severe vertigo: Appears to be due to acute labyrinthitis. Brain MRI scan negative for acute CVA. There are some old findings however. She will continue meclizine for 2 more days along with a tapering dose of oral prednisone at discharge. (2) Thoracic compression fracture: New T3 fracture seen on imaging. The patient has minimal symptoms at this time. Orthopedic spine surgeon will see the patient today, April 09, before discharge. (3) COPD exacerbation: Resolved with parenteral steroids and nebulizer treatments. 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 She will see surgery again in the office early next week (5) Candidiasis of mouth and esophagus: Resolved with nystatin suspension. Most likely due to inhaled steroid use Plan Home today, April 09 Admission HPI Per Admitting Provider Very pleasant 84yo female with history of COPD, on night-time NC O2 - 2 liters; GERD; hyperlipidemia; hiatal hernia; history of incisional hernia repair 02/2025; and osteopenia presents with 2-3 days of vertigo. Patient reports that the vertigo spells are brought on by head movement. Symptoms last for about 1-2 minutes then resolve. She has been unsteady on her feet, holding onto gaston and furniture to brace herself during ambulation. Denies any nausea/emesis. Denies visual loss, visual field cuts, falls, tinnitus, or new onset hearing loss (uses hearing aids chronically). 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 When she woke up this am the vertigo was quite severe and she simply "didn't feel that good." Thus, she came to the ER to be evaluated. With respect to her mid-thoracic back pain she is quite vague about any injury or fall. During a primary care visit on 03/31/25 she complained of the pain and on 04/01/25 under thoracic x-rays showing a T5 compression fracture. When asked when the pain started she states that she injured her back in her bathroom at some point in the recent past but couldn't remember the exact timing. She denies any paresthesias of her torso/abdominal wall. Denies paresthesias or weakness of her legs. She has been taking tylenol for the back pain. Finally, she mentions she has had chest congestion for a few days. Due to the pain in her back she admits she can't take deep breaths adequately. Denies any fevers. She has had a cough but can't bring anything up. ER course - Received IV solumedrol 80mg x 1; meclizine 12.5mg x 1; 500cc of NS; zofran x 1; asa/plavix due to an old stroke seen on CT; and albuterol neb x 1. NC O2 was applied due to hypoxia (86% in room air). When I assessed her in the ER she reports that her vertigo and breathing were both improved. Discharge Exam General-alert and oriented x3, no fever, no chills HEENT-head atraumatic and normocephalic, pupils equal and reactive to light, extraocular muscles intact Neck-no lymphadenopathy or thyromegaly, trachea midline Chest-clear to auscultation. No rales, wheezing or rhonchi Cardiac-regular rate and rhythm, normal S1 and S2 Abdomen-normal bowel sounds, no hepatosplenomegaly. She appears to have a ventral hernia that is nontender with no overlying erythema. Extremities-no cyanosis, clubbing, or edema Neuro-cranial nerves II through XII intact, she does have mild nystagmus. Motor and sensory function within normal limits, strength symmetrical, no focal deficits. Psych-normal affect, normal mood Discharge Plan Discharge Items Patient Disposition: Home - Home Health Services Reason For Visit: ACUTE VERTIGO,MID-THORACIC COMPRESSION FRACTURE,CO Discharge Diagnosis: Acute labyrinthitis with vertigo, acute T3 compression fracture probably pathologic related to osteoporosis Condition on Discharge: Good Activity: Resume your previous activity Non-emergency contact: Primary Care Provider Call non-emergency contact if: your symptoms worsen Follow-up/Referrals: Jessica Baum MD [Primary Care Provider] - Diet: Regular Addtl Attending Provider Instructions: Take meclizine 12.5 mg 3 times a day for 2 more days. Take prednisone in a tapering dose fashion as directed. Prescriptions have been sent to [facility] pharmacy on [facility]. All other medications remain the same Pending Studies at Discharge: No Stand-Alone Forms: My [facility] [employer], Smoking Cessation Medications and DC Order Prescriptions: New meclizine 12.5 mg Tablet 12.5 mg PO TID Qty: 6 0RF prednisone 10 mg tablet See Rx Instructions .ROUTE .COMPLEX Qty: 12 0RF Rx Instructions: 10 mg orally 3 times a day for 2 days, then 10 mg twice a day for 2 days, then 10 mg once a day for 2 days, then stop Continued (DME) Oxygen Home Liters Per Minute See Rx Instructions .Route Qty: 1 0RF Rx Instructions: Oxygen tubing and supplies BIJAN-99 ipratropium-albuterol 0.5 mg-3 mg(2.5 mg base)/3 mL solution for nebulization 3 ml inhalation Q8H PRN (Reason: shortness of breath or wheezing) Qty: 810 1RF (DME) nebulizer accessories Kit See Rx Instructions .Route Qty: 2 4RF Rx Instructions: Nebulizer tubing and supply kits BIJAN-99 albuterol sulfate [Ventolin HFA] 90 mcg/actuation HFA aerosol inhaler 2 puff INHALATION Q4H PRN (Reason: shortness of breath or wheezing) Qty: 3 0RF omeprazole 20 mg capsule,delayed release(DR/EC) 20 mg PO QAM Qty: 90 3RF (DME) Flutter Valve Device See Rx Instructions .MEDSUPPLY Qty: 1 0RF Rx Instructions: Use it every 6 hours when awake. (DME) Discontinue DME Misc See Rx Instructions .MEDSUPPLY Qty: 1 0RF Rx Instructions: Okay to discontinue nebulizer machine as patient is getting her own PreserVision AREDS-2 250-90-40-1 mg capsule 1 tab PO BID Qty: 60 0RF Trelegy Ellipta 200-62.5-25 mcg blister with device 1 inh inhalation HS Qty: 3 4RF cyanocobalamin (vitamin B-12) [Vitamin B-12] 1,000 mcg Tablet 1,000 mcg PO QAM Centrum 18-400 mg-mcg Tablet 1 tab PO QAM lactobacillus combination no.8 3 billion cell capsule 3,000 mmu cells PO QAM Rx Instructions: administer with a meal gabapentin [Neurontin] 300 mg capsule 300 mg PO HS Rx Instructions: TAKE ONE CAPSULE BY MOUTH EVERY DAY IN THE EVENING benzonatate 100 mg capsule 100 mg PO BID PRN (Reason: cough) Qty: 20 1RF Discharge Orders: Discharge Order (Routine); Ordered 04/09/25 Ordered By: Eloy Menjivar Admission Data Admit Date/Time: 04/07/25 19:31 Attending Provider: Eloy Menjivar Admit Provider: Dominic Cohn Primary Care Provider: Jessica Baum V. Other Providers: Dominic Cohn; Isra Lezama Hospital Stay Data Consultations 04/07/25 17:51 ED Decision to Admit Stat 04/08/25 12:37 Consult Orthopedic Spine Surgery Routine Diagnostic Imagining Performed 04/07/25 16:16 CT angio head w con Stat CT angio neck with con Stat CT head/brain wo con Stat 04/07/25 19:31 CT thoracic spine wo con Routine 04/08/25 07:39 MR brain wo con Routine Pending Results Patient Have Any Pending Studies at Discharge: No Discharge Instructions Given to Patient (Per Discharging Provider) Take meclizine 12.5 mg 3 times a day for 2 more days. Take prednisone in a tapering dose fashion as directed. Prescriptions have been sent to [facility] pharmacy on [facility]. All other medications remain the same Total Time Total Time Spent Total Time Spent (In Minutes): 45 minutes Coding Level of Care Code 51683 INP/OBS DISCH >30 MIN Diagnoses Acute severe vertigo R42 Thoracic compression fracture S22.050D Encounter type: subsequent encounter Fracture healing: with routine healing Thoracic vertebra fracture level: T5 COPD exacerbation J44.1 History of incisional hernia repair Z98.890; Z87.19 Candidiasis of mouth and esophagus B37.81; B37.0
[2025-04-09 11:42] VITALS: BP 119/62; PULSE 76; RESP 18; O2SAT 96
[2025-04-09 15:10] LABS: iSTAT Creatinine 0.7 mg/dl (0.6-1.3); iSTAT Hemoglobin 12.9 g/dl (12.0-16.0); iSTAT Ionized Calcium 1.15 mmol/l (1.12-1.32); iSTAT Potassium 4.1 mmol/L (3.3-5.0)
== END 2025-04-09 13:28 | disposition home health service (06) | DRG 149 ==
LOC: ED 15:40 → 2S 19:31 → SUATTDRO 19:31 → 2S 20:14